=== PATIENT | male | born 1960 | race Caucasian/White ===

== ENCOUNTER 2019-02-21 15:48 | Emergency (ER) | payer OTHER ==
[2019-02-21] MEDS ORDERED: LABETALOL 20 MG/4ML SYRINGE IV ONE (16:27)
[2019-02-21] MEDS ORDERED: NA CHLORIDE 0.9% 100 ML IV ONE (16:28)
[2019-02-21 16:41] LABS: Absolute Lymphocytes (CBC) 1.3 K/uL (0.7-4.9); Absolute Monocytes 0.4 K/uL (0.1-1.3); Basophils % 0.8 % (0-1.3); Hematocrit 45.3 % (39.6-49.0); MPV 7.8 fL (7.6-11.3); Monocytes % 4.8 % (3.3-12.3); RBC Red Blood Cell Count 5.01 M/uL (4.33-5.43)
[2019-02-21 16:47] LABS: Potassium 3.8 mmol/L (3.5-5.1)
--- NOTE | 2019-02-21 17:00 | ER ---
Nurse's Notes [facility] Name: Oh Roberts Age: 58 yrs Sex: Male : 1960 Arrival Date: 02/21/2019 Time: 15:51 Bed 27 Private MD: Diagnosis: Hypertensive Urgency Presentation: 02/21 15:52 Transition of care: patient was not received from another setting of care. Care prior sv to arrival: None. 15:52 Method Of Arrival: Ambulatory sv 15:52 Presenting complaint: Patient states: "Lots of jittering and tingling everywhere, BP sv 188/66." Has been out of BP meds for a month. c/o headache. Onset of symptoms was February 20, 2019. 15:52 Acuity: LUIS M 2 sv 16:30 Risk Assessment: Do you want to hurt yourself or someone else? Patient reports no rv desire to harm self or others. Initial Sepsis Screen: Does the patient meet any 2 criteria? No. Patient's initial sepsis screen is negative. Does the patient have a suspected source of infection? No. Patient's initial sepsis screen is negative. Triage Assessment: 15:57 General: Appears in no apparent distress. uncomfortable, well developed, Behavior is sv calm, cooperative, appropriate for age. Pain: Denies pain. Neuro: Level of Consciousness is awake, alert, obeys commands, Oriented to person, place, time, situation, Gait is steady, Speech is normal. Respiratory: Respiratory effort is even, unlabored, Respiratory pattern is regular, symmetrical. Derm: Skin is normal. Historical: - Allergies: 15:55 No Known Allergies; sv - PMHx: 15:55 Hypertension; sv - PSHx: 15:55 heart aneurysym repair; sv - Immunization history:: Adult Immunizations up to date. - Social history:: Smoking status: Patient/guardian denies using tobacco. - Ebola Screening: : Patient negative for fever greater than or equal to 101.5 degrees Fahrenheit, and additional compatible Ebola Virus Disease symptoms Patient denies exposure to infectious person Patient denies travel to an Ebola-affected area in the 21 days before illness onset. Screenin:30 Abuse screen: Denies threats or abuse. Denies injuries from another. Nutritional rv screening: No deficits noted. Tuberculosis screening: No symptoms or risk factors identified. Fall Risk None identified. Assessment: 16:29 General: Appears in no apparent distress. comfortable, Behavior is calm, cooperative. rv Pain: Denies pain. Neuro: Level of Consciousness is awake, alert, obeys commands, Oriented to person, place, time, situation. Cardiovascular: Capillary refill < 3 seconds. Cardiovascular: Rhythm is regular. Respiratory: Airway is patent. GI: No signs and/or symptoms were reported involving the gastrointestinal system. : No signs and/or symptoms were reported regarding the genitourinary system. EENT: No signs and/or symptoms were reported regarding the EENT system. Derm: Skin is intact. Musculoskeletal: No signs and/or symptoms reported regarding the musculoskeletal system. 16:58 Reassessment: Patient appears in no apparent distress at this time. Patient and/or rv family updated on plan of care and expected duration. Pain level reassessed. Patient is alert, oriented x 3, equal unlabored respirations, skin warm/dry/pink. PATIENT STARTS FEELING BETTER. DAVE EXPLAINED TEST RESULTS AND PLAN FOR DISCHARGE. Vital Signs: 15:55 BP 200 / 105 RA Sitting (auto/reg); Pulse 85; Resp 18; Temp 98.5; Pulse Ox 98% ; Weight sv 83.01 kg; Height 5 ft. 10 in. (177.80 cm); 16:20 BP 178 / 99 LA Supine; Pulse 84; Resp 18 S; Pulse Ox 96% on R/A; rv 16:30 BP 186 / 100 LA Supine; Pulse 82; Resp 15 S; Pulse Ox 96% on R/A; rv 16:45 BP 173 / 95 LA Supine; Pulse 81; Resp 18 S; Pulse Ox 96% on R/A; rv 15:55 Body Mass Index 26.26 (83.01 kg, 177.80 cm) sv ED Course: 15:51 Patient arrived in ED. mr 15:52 Arm band placed on. sv 15:54 Triage completed. sv 15:58 Dave Phillips PA is PHCP. jr8 15:58 Sg Palm MD is Attending Physician. jr8 16:14 Panda Jones RN is Primary Nurse. rv 16:15 Inserted saline lock: 20 gauge in right antecubital area, using aseptic technique. rv Blood collected. 16:28 Patient has correct armband on for positive identification. Bed in low position. Call rv light in reach. Side rails up X 1. Pulse ox on. NIBP on. 16:28 Basic Metabolic Panel Sent. rv 16:28 CBC with Diff Sent. rv 16:57 No provider procedures requiring assistance completed. IV discontinued, intact, rv bleeding controlled, No redness/swelling at site. Pressure dressing applied. Administered Medications: 16:20 Drug: Labetalol 20 mg Route: IVP; Infused Over: 2 mins; Site: right antecubital; rv 16:57 Follow up: Response: Blood pressure is lowered rv Outcome: 16:57 Discharged to home ambulatory. rv 16:57 Condition: good 16:57 Discharge instructions given to patient, family, Instructed on discharge instructions, follow up and referral plans. medication usage, Demonstrated understanding of instructions, follow-up care, medications, Prescriptions given X 1. 17:00 Discharge ordered by . andra 17:09 Patient left the ED. rv Signatures: Arabella Bowden, RN RN Mannie Kathy fuller Dave Phillips PA PA jrPanda Pack RN RN rv Corrections: (The following items were deleted from the chart) 15:55 15:52 Onset of symptoms was February 21, 2019 sv sv 15:57 15:52 Presenting complaint: Patient states: "Lots of jittering and tingling everywhere, sv BP 188/66." Has been out of BP meds for a month. sv 15:58 15:52 Acuity: LUIS M 3 sv sv 15:58 15:55 Pulse 85bpm; Resp 18bpm; Pulse Ox 98%; Temp 98.5F; sv sv
--- NOTE | 2019-02-21 17:01 | EDPHYS ---
Physician Documentation [facility] Name: Oh Roberts Age: 58 yrs Sex: Male : 1960 Arrival Date: 02/21/2019 Time: 15:51 Bed 27 Private MD: ED Physician Sg Palm HPI: 02/21 16:13 This 58 yrs old Male presents to ER via Ambulatory with complaints of High jr8 Blood Pressure. 16:13 The patient has elevated blood pressure and discovered this at home. Onset: The jr8 symptoms/episode began/occurred gradually, 2 day(s) ago, and became worse. Modifying factors: The symptoms are aggravated by activity, The symptoms are alleviated by nothing. Associated signs and symptoms: Pertinent positives: headache. Severity of symptoms: At its worst the blood pressure was moderate, in the emergency department the blood pressure is unchanged. The patient has experienced a previous episode. The patient has not recently seen a physician. History of HTN but has been off of medication for years. Stated that over the past couple of days noticed that he has been more fatigued and tired. Has been having headaches and feels shaky. Denies CP, shortness of breath, visual deficits, unilateral weakness. Did complain of on/off paresthesias as well . Historical: - Allergies: 15:55 No Known Allergies; sv - PMHx: 15:55 Hypertension; sv - PSHx: 15:55 heart aneurysym repair; sv - Immunization history:: Adult Immunizations up to date. - Social history:: Smoking status: Patient/guardian denies using tobacco. - Ebola Screening: : Patient negative for fever greater than or equal to 101.5 degrees Fahrenheit, and additional compatible Ebola Virus Disease symptoms Patient denies exposure to infectious person Patient denies travel to an Ebola-affected area in the 21 days before illness onset. ROS: 16:13 Eyes: Negative for injury, pain, redness, and discharge, ENT: Negative for injury, jr8 pain, and discharge, Neck: Negative for injury, pain, and swelling, Cardiovascular: Negative for chest pain, palpitations, and edema, Respiratory: Negative for shortness of breath, cough, wheezing, and pleuritic chest pain, Abdomen/GI: Negative for abdominal pain, nausea, vomiting, diarrhea, and constipation, Back: Negative for injury and pain, MS/Extremity: Negative for injury and deformity, Skin: Negative for injury, rash, and discoloration. 16:13 Constitutional: Positive for fatigue. 16:13 Neuro: Positive for headache, tingling. Exam: 16:13 Eyes: Pupils equal round and reactive to light, extra-ocular motions intact. Lids and jr8 lashes normal. Conjunctiva and sclera are non-icteric and not injected. Cornea within normal limits. Periorbital areas with no swelling, redness, or edema. ENT: Nares patent. No nasal discharge, no septal abnormalities noted. Tympanic membranes are normal and external auditory canals are clear. Oropharynx with no redness, swelling, or masses, exudates, or evidence of obstruction, uvula midline. Mucous membranes moist. Neck: Trachea midline, no thyromegaly or masses palpated, and no cervical lymphadenopathy. Supple, full range of motion without nuchal rigidity, or vertebral point tenderness. No Meningismus. Cardiovascular: Regular rate and rhythm with a normal S1 and S2. No gallops, murmurs, or rubs. Normal PMI, no JVD. No pulse deficits. Respiratory: Lungs have equal breath sounds bilaterally, clear to auscultation and percussion. No rales, rhonchi or wheezes noted. No increased work of breathing, no retractions or nasal flaring. Abdomen/GI: Soft, non-tender, with normal bowel sounds. No distension or tympany. No guarding or rebound. No evidence of tenderness throughout. Back: No spinal tenderness. No costovertebral tenderness. Full range of motion. Skin: Warm, dry with normal turgor. Normal color with no rashes, no lesions, and no evidence of cellulitis. MS/ Extremity: Pulses equal, no cyanosis. Neurovascular intact. Full, normal range of motion. Neuro: Awake and alert, GCS 15, oriented to person, place, time, and situation. Cranial nerves II-XII grossly intact. Motor strength 5/5 in all extremities. Sensory grossly intact. Cerebellar exam normal. Normal gait. 16:13 ECG was reviewed by the Attending Physician. jr8 Vital Signs: 15:55 BP 200 / 105 RA Sitting (auto/reg); Pulse 85; Resp 18; Temp 98.5; Pulse Ox 98% ; Weight sv 83.01 kg; Height 5 ft. 10 in. (177.80 cm); 16:20 BP 178 / 99 LA Supine; Pulse 84; Resp 18 S; Pulse Ox 96% on R/A; rv 16:30 BP 186 / 100 LA Supine; Pulse 82; Resp 15 S; Pulse Ox 96% on R/A; rv 16:45 BP 173 / 95 LA Supine; Pulse 81; Resp 18 S; Pulse Ox 96% on R/A; rv 15:55 Body Mass Index 26.26 (83.01 kg, 177.80 cm) sv MDM: 15:58 Patient medically screened. jr8 16:58 Data reviewed: vital signs, nurses notes, lab test result(s), EKG, and as a result, I jr8 will discharge patient. Data interpreted: Pulse oximetry: on room air is 96 %. Interpretation: normal. Counseling: I had a detailed discussion with the patient and/or guardian regarding: the historical points, exam findings, and any diagnostic results supporting the discharge/admit diagnosis, lab results, the need for outpatient follow up, a family practitioner, to return to the emergency department if symptoms worsen or persist or if there are any questions or concerns that arise at home. Counseling: I had a detailed discussion with the patient and/or guardian regarding: the presence of at least one elevated blood pressure reading (>120/80) during this emergency department visit. Response to treatment: the patient's symptoms have markedly improved after treatment. Special discussion: I have referred the patient to see his PCP for further evaluation of high blood pressure. 02/21 16:12 Order name: CBC with Diff [facility] 02/21 16:12 Order name: Basic Metabolic Panel [facility] 02/21 16:12 Order name: EKG; Complete Time: 16:13 8 02/21 16:13 Order name: CBC with Automated Diff; Complete Time: 16:52 EDMS 02/21 16:13 Order name: Basic Metabolic Panel; Complete Time: 16:52 EDMS 02/21 16:12 Order name: EKG - Nurse/Tech; Complete Time: 16:39 jr EC:13 Rate is 82 beats/min. Rhythm is regular, Sinus Rhythm with PACs. QRS [place] is Normal. [place] jr8 interval is normal at 180 msec. QRS interval is normal at 88 msec. QT interval is normal at 448 msec. No Q waves. T waves are Normal. No ST changes noted. Clinical impression: Normal ECG and No evidence of ischemia. Interpreted by me. Reviewed by me. Administered Medications: 16:20 Drug: Labetalol 20 mg Route: IVP; Infused Over: 2 mins; Site: right antecubital; rv 16:57 Follow up: Response: Blood pressure is lowered rv Disposition: 02/22 07:57 Co-signature as Attending Physician, Sg Palm MD I agree with the assessment and [place] plan of care. Disposition: 02/21/19 17:00 Discharged to Home. Impression: Hypertensive Urgency. - Condition is Stable. - Discharge Instructions: Hypertension. - Prescriptions for Lisinopril- Hydrochlorothiazide 20-12.5 mg Oral Tablet - take 1 tablet by ORAL route once daily; 20 tablet. - Medication Reconciliation Form, Thank You Letter, Antibiotic Education, Prescription Opioid Use, Work release form form. - Follow up: Private Physician; When: 5 - 6 days; Reason: Recheck today's complaints, Continuance of care, Re-evaluation by your physician. - Problem is new. - Symptoms have improved. Signatures: Dispatcher [employer] Arabella Wolf, RN RN Sg Barclay MD MD cha Roszak, Josh, PA PA jr8 Panda Jones RN RN rv Corrections: (The following items were deleted from the chart) 02/21 17:09 17:00 02/21/2019 17:00 Discharged to Home. Impression: Hypertensive Urgency. Condition rv is Stable. Forms are Medication Reconciliation Form, Thank You Letter, Antibiotic Education, Prescription Opioid Use. Follow up: Private Physician; When: 5 - 6 days; Reason: Recheck today's complaints, Continuance of care, Re-evaluation by your physician. Problem is new. Symptoms have improved. jr8
--- NOTE | 2019-02-22 07:45 | EKG ---
Test Date: 2019-02-21 Test Time: 16:37:27 Resistance [place]: MARIPOSAT MEASUREMENT RESULTS: Intervals: Rate: 82 OK: 180 QRSD: 88 QT: 384 QTc: 448 [place]: P: OK: 180 QRS: 9 T: 70 INTERPRETIVE STATEMENTS: Sinus rhythm with premature atrial complexes Otherwise normal ECG No previous ECG available for comparison Electronically Signed On 02-22-19 07:43:53 CDT by Mayo Chamorro
== END 2019-02-21 17:09 | disposition home or self-care (01) ==
LOC: ER 15:48
DX: I16.0 Hypertensive urgency (principal); R51 Headache
CPT/HCPCS: 36415; 80048; 85025; 93005; 96374; 99284

== ENCOUNTER 2019-10-04 22:49 | Emergency (ER) | payer OTHER ==
--- NOTE | 2019-10-05 00:28 | ER ---
Nurse's Notes [facility] Name: Oh Roberts Age: 59 yrs Sex: Male : 1960 Arrival Date: 10/04/2019 Time: 22:51 Bed 5 Private MD: Diagnosis: Acute pharyngitis;Acute sinusitis Presentation: 10/04 23:47 Presenting complaint: Patient states: Reports he has been having sore throat for the ea past two weeks, significant other reports he has been having fever. Reports taking tylenol in the AM and NyQuil. Transition of care: patient was not received from another setting of care. Onset of symptoms was October 04, 2019. Risk Assessment: Do you want to hurt yourself or someone else? Patient reports no desire to harm self or others. Initial Sepsis Screen: Does the patient meet any 2 criteria? No. Patient's initial sepsis screen is negative. Does the patient have a suspected source of infection? No. Patient's initial sepsis screen is negative. Care prior to arrival: None. 23:47 Method Of Arrival: Ambulatory ea 23:47 Acuity: LUIS M 4 ea Historical: - Allergies: 23:51 No Known Allergies; ea - PMHx: 23:51 Hypertension; ea - PSHx: 23:51 None; ea - Immunization history:: Adult Immunizations up to date. - Social history:: Smoking status: Patient/guardian denies using tobacco. - Ebola Screening: : No symptoms or risks identified at this time. Screenin:49 Abuse screen: Denies threats or abuse. Nutritional screening: No deficits noted. ea Tuberculosis screening: No symptoms or risk factors identified. Fall Risk None identified. Assessment: 23:57 General: Appears uncomfortable, Behavior is calm, cooperative, appropriate for age. ea Pain: Complains of pain in sore throat. Neuro: Level of Consciousness is awake, alert, obeys commands, Oriented to person, place, time, situation. Cardiovascular: Patient's skin is warm and dry. Respiratory: Airway is patent Respiratory effort is even, unlabored, Respiratory pattern is regular, symmetrical, Breath sounds are clear bilaterally. EENT: Throat is reddened has enlarged tonsils bilaterally. 10/05 00:34 Reassessment: Patient and/or family updated on plan of care and expected duration. Pain ea level reassessed. Patient is alert, oriented x 3, equal unlabored respirations, skin warm/dry/pink. Discharge instruction given to patient, verbalized the understanding of instruction. Pt left ED ambulatory accompanied by family. Pt tolerating well. Vital Signs: 1202 23:57 BP 161 / 98; Pulse 78; Resp 18; Temp 98; Pulse Ox 97% on R/A; Weight 83.01 kg; Height 5 ea ft. 10 in. (177.80 cm); 23:57 Body Mass Index 26.26 (83.01 kg, 177.80 cm) ea ED Course: 22:51 Patient arrived in ED. cl3 22:58 Jeffry Garcia NP is PHCP. pm1 22:58 Solo Smart MD is Attending Physician. pm1 23:38 Yue Knight, CHARMAINE is Primary Nurse. ea 23:49 Triage completed. ea 23:50 Patient has correct armband on for positive identification. Bed in low position. Call ea light in reach. Side rails up X2. 23:58 Arm band placed on right wrist. Patient placed in an exam room, on a stretcher, on ea pulse oximetry. 12 00:35 No provider procedures requiring assistance completed. Patient did not have IV access ea during this emergency room visit. Administered Medications: No medications were administered Outcome: 00:26 Discharge ordered by . pm1 00:35 Discharged to home ambulatory, with family. ea 00:35 Condition: stable 00:35 Discharge instructions given to patient, Instructed on discharge instructions, follow up and referral plans. medication usage, Demonstrated understanding of instructions, follow-up care, medications. 00:37 Patient left the ED. ea Signatures: Jeffry Garcia NP ORBITREAD OPERATOR pm1 Yue Knight, RN RN Hannah Gandara cl3
--- NOTE | 2019-10-05 00:28 | EDPHYS ---
Physician Documentation [facility] Name: Oh Roberts Age: 59 yrs Sex: Male : 1960 Arrival Date: 10/04/2019 Time: 22:51 Bed 5 Private MD: ED Physician Solo Smart HPI: 10/04 23:45 This 59 yrs old Male presents to ER via Unassigned with complaints of Sore pm1 Throat. 23:45 The patient presents with sore throat. The patient describes throat pain as raw, pm1 scratchy. Onset: The symptoms/episode began/occurred 2 week(s) ago. Severity of symptoms: in the emergency department the symptoms are actually worse. Modifying factors: Patient's oral intake status: good. Associated signs and symptoms: Pertinent positives: cough, fever, flu-like symptoms, sinus congestion. The patient has not experienced similar symptoms in the past. The patient has not recently seen a physician. Historical: - Allergies: 23:51 No Known Allergies; ea - PMHx: 23:51 Hypertension; ea - PSHx: 23:51 None; ea - Immunization history:: Adult Immunizations up to date. - Social history:: Smoking status: Patient/guardian denies using tobacco. - Ebola Screening: : No symptoms or risks identified at this time. ROS: 23:58 Eyes: Negative for injury, pain, redness, and discharge. pm1 23:58 Neck: Negative for injury, pain, and swelling, Cardiovascular: Negative for chest pain, palpitations, and edema. 23:58 Abdomen/GI: Negative for abdominal pain, nausea, vomiting, diarrhea, and constipation, Back: Negative for injury and pain, MS/Extremity: Negative for injury and deformity, Skin: Negative for injury, rash, and discoloration. 23:58 Neuro: Negative for headache, weakness, numbness, tingling, and seizure. 23:58 Constitutional: Positive for body aches, fever, Negative for poor PO intake. 23:58 ENT: Positive for nose bleed, sinus congestion, sinus pain, sore throat. 23:58 Respiratory: Positive for cough, Negative for shortness of breath, sputum production, wheezing. Exam: 23:58 Constitutional: This is a well developed, well nourished patient who is awake, alert, pm1 and in no acute distress. Head/Face: Normocephalic, atraumatic. Eyes: Pupils equal round and reactive to light, extra-ocular motions intact. Lids and lashes normal. Conjunctiva and sclera are non-icteric and not injected. Cornea within normal limits. Periorbital areas with no swelling, redness, or edema. 23:58 Neck: Trachea midline, no thyromegaly or masses palpated, and no cervical lymphadenopathy. Supple, full range of motion without nuchal rigidity, or vertebral point tenderness. No Meningismus. Chest/axilla: Normal chest wall appearance and motion. Nontender with no deformity. No lesions are appreciated. Cardiovascular: Regular rate and rhythm with a normal S1 and S2. No gallops, murmurs, or rubs. Normal PMI, no JVD. No pulse deficits. Respiratory: Lungs have equal breath sounds bilaterally, clear to auscultation and percussion. No rales, rhonchi or wheezes noted. No increased work of breathing, no retractions or nasal flaring. Abdomen/GI: Soft, non-tender, with normal bowel sounds. No distension or tympany. No guarding or rebound. No evidence of tenderness throughout. Back: No spinal tenderness. No costovertebral tenderness. Full range of motion. Skin: Warm, dry with normal turgor. Normal color with no rashes, no lesions, and no evidence of cellulitis. MS/ Extremity: Pulses equal, no cyanosis. Neurovascular intact. Full, normal range of motion. 23:58 ENT: External ear(s): are unremarkable, Ear canal(s): are normal, TM's: are normal, Nose: no acute changes, Mouth: no acute changes, Posterior pharynx: Airway: normal, no evidence of obstruction, Tonsils: bilaterally enlarged, with erythema, with exudate, no ulcerations, peritonsillar mass, is not appreciated, pooling of secretions, is not appreciated. 23:58 Neuro: Orientation: is normal, Motor: is normal, moves all fours. Vital Signs: 23:57 BP 161 / 98; Pulse 78; Resp 18; Temp 98; Pulse Ox 97% on R/A; Weight 83.01 kg; Height 5 ea ft. 10 in. (177.80 cm); 23:57 Body Mass Index 26.26 (83.01 kg, 177.80 cm) ea MDM: 23:02 Patient medically screened. pm1 23:59 Data reviewed: vital signs. Data interpreted: Pulse oximetry: on room air is 97 %. pm1 Interpretation: normal. 10/05 00:25 Counseling: I had a detailed discussion with the patient and/or guardian regarding: the pm1 historical points, exam findings, and any diagnostic results supporting the discharge/admit diagnosis, lab results, the need for outpatient follow up, to return to the emergency department if symptoms worsen or persist or if there are any questions or concerns that arise at home. 10/04 23:03 Order name: Strep; Complete Time: 00:25 pm1 10/04 23:03 Order name: Flu; Complete Time: 00:25 pm1 10/05 00:22 Order name: Throat Culture EDMS Administered Medications: No medications were administered Disposition: 07:30 Co-signature as Attending Physician, Solo Smart MD I agree with the assessment and tw4 plan of care. Disposition: 10/05/19 00:26 Discharged to Home. Impression: Acute pharyngitis, Acute sinusitis. - Condition is Stable. - Discharge Instructions: Pharyngitis, Sinusitis, Adult. - Prescriptions for Augmentin 875- 125 mg Oral Tablet - take 1 tablet by ORAL route every 12 hours for 10 days; 20 tablet. - Medication Reconciliation Form, Thank You Letter, Antibiotic Education, Prescription Opioid Use, Work release form form. - Follow up: Emergency Department; When: As needed; Reason: Worsening of condition. Follow up: Private Physician; When: 2 - 3 days; Reason: Recheck today's complaints, Continuance of care, Re-evaluation by your physician. - Problem is new. - Symptoms have improved. Signatures: Dispatcher [employer] EDMS Jeffry Garcia, VAN IRON CASTER pm1 Yue Knight RN RN ea Wadley, Terrence, MD MD tw4 Corrections: (The following items were deleted from the chart) 00:29 00:26 10/05/2019 00:26 Discharged to Home. Impression: Acute pharyngitis. Condition is pm1 Stable. Forms are Medication Reconciliation Form, Thank You Letter, Antibiotic Education, Prescription Opioid Use. Follow up: Emergency Department; When: As needed; Reason: Worsening of condition. Follow up: Private Physician; When: 2 - 3 days; Reason: Recheck today's complaints, Continuance of care, Re-evaluation by your physician. Problem is new. Symptoms have improved. pm1 00:37 00:29 10/05/2019 00:26 Discharged to Home. Impression: Acute pharyngitis; Acute ea sinusitis. Condition is Stable. Discharge Instructions: Pharyngitis, Sinusitis, Adult. Prescriptions for Augmentin 875-125 mg Oral Tablet - take 1 tablet by ORAL route every 12 hours for 10 days; 20 tablet. and Forms are Medication Reconciliation Form, Thank You Letter, Antibiotic Education, Prescription Opioid Use. Follow up: Emergency Department; When: As needed; Reason: Worsening of condition. Follow up: Private Physician; When: 2 - 3 days; Reason: Recheck today's complaints, Continuance of care, Re-evaluation by your physician. Problem is new. Symptoms have improved. pm1
[2019-10-05 03:59] VITALS: BP 161/98; TEMP 98; O2SAT 97
== END 2019-10-05 00:37 | disposition home or self-care (01) ==
LOC: ER 22:49
DX: J02.9 Acute pharyngitis, unspecified (principal); J01.90 Acute sinusitis, unspecified
CPT/HCPCS: 87070; 87081; 87804; 99283

== ENCOUNTER 2019-10-06 13:14 | Inpatient (IN) | payer OTHER ==
[2019-10-06] MEDS ORDERED: ALTEPLASE 100 ML IV ONE (13:26)
--- NOTE | 2019-10-06 13:38 | RAD REPORT ---
EXAM DESCRIPTION: CT - Ct Stroke Brain Wo Cont - 10/06/2019 1:29 pm CLINICAL HISTORY: CVA COMPARISON: None TECHNIQUE: Computed axial tomography of the head was obtained. All CT scans are performed using dose optimization technique as appropriate and may include automated exposure control or mA/KV adjustment according to patient size. FINDINGS: An intracranial bleed is not seen . The ventricles are normal in caliber. No extra-axial fluid collection is noted. Mild low-density within periventricular, deep and subcortical white matter likely ischemic changes s econdary to small vessel disease Fluid within the sinuses/ mastoids is not seen. IMPRESSION: No acute intracranial abnormality is seen. If patient's symptoms persist MRI of the bra in would be recommended. Dr Mcgovern of the emergency room was notified at approximately 1:25 p.m. 10/06/2019
[2019-10-06] MEDS ORDERED: NA CHLORIDE 0.9% 100 ML IV ONE (13:40)
[2019-10-06 13:41] LABS: Absolute Lymphocytes (CBC) 1.6 K/uL (0.7-4.9); Basophils % 0.9 % (0-1.3); Lymphocytes % 19.5 % (15.3-44.8); MPV 7.4 fL (7.6-11.3); RBC Red Blood Cell Count 4.56 M/uL (4.33-5.43)
[2019-10-06 13:44] LABS: Protime INR 1.04
--- NOTE | 2019-10-06 13:47 | ER ---
Nurse's Notes [facility] Name: Oh Roberts Age: 59 yrs Sex: Male : 1960 Arrival Date: 10/06/2019 Time: 13:19 Bed 5 Private MD: Diagnosis: Cerebral infarction Presentation: 10/06 13:15 Presenting complaint: EMS states: pt c/o numbness/tingling in right arm that started at iw 1130 today, pt also has weakness in RLE, hx of CVA in 2003, hx of aortic aneurysm, was diagnosed with strep 2 days ago, currently on Augmentin, not on blood thinners, takes ASA daily. 13:21 Transition of care: patient was not received from another setting of care. iw 13:21 Method Of Arrival: EMS: [facility] iw 13:22 The patients blood glucose was checked prior to arriving to the hospital and was found iw to be hyperglycemic. Onset of symptoms was October 06, 2019 at 11:30. Risk Assessment: Do you want to hurt yourself or someone else? Patient reports no desire to harm self or others. Initial Sepsis Screen: Does the patient meet any 2 criteria? No. Patient's initial sepsis screen is negative. Does the patient have a suspected source of infection? No. Patient's initial sepsis screen is negative. Care prior to arrival: Medication(s) given: Normal saline infusion, 500 mL, IV initiated. 20 GA, in the right antecubital area, Glucose check: 395. 13:22 Acuity: LUIS M 2 iw Triage Assessment: 13:17 The onset of the patients symptoms was October 06, 2019 at 11:30. General: Appears in iw no apparent distress. Behavior is calm, cooperative. Pain: Denies pain. Neuro: Reports weakness in right leg since 1130 today. Stroke Activation: Symptom onset < 3 hours Physician: Stroke Attending; Name: ; Notified At: ; Arrived At: Physician: Chief Stroke Resident; Name: ; Notified At: ; Arrived At: Physician: Stroke Resident; Name: ; Notified At: ; Arrived At: Physician: ED Attending; Name: Dr. Mcgovern/Dave PATEL; Notified At: 13:15; Arrived At: 13:15 Physician: ED Resident; Name: ; Notified At: ; Arrived At: Historical: - Allergies: 13:24 No Known Allergies; iw - Home Meds: 13:23 Aspirin Oral once daily [Active]; iw 16:16 metformin 500 mg Oral tab 1 tab 2 times per day [Active]; iw lisinopril-hydrochlorothiazide 20-12.5 mg oral tab 1 tab once daily [Active]; - PMHx: 13:23 Hypertension; iw - PSHx: 16:16 aortic aneurysm repair; iw - Immunization history:: Adult Immunizations not up to date. - Social history:: Smoking status: Patient/guardian denies using tobacco, Patient uses alcohol, on a daily basis. claims drinking about a 6 pack/day. - Ebola Screening: : Patient negative for fever greater than or equal to 101.5 degrees Fahrenheit, and additional compatible Ebola Virus Disease symptoms Patient denies exposure to infectious person Patient denies travel to an Ebola-affected area in the 21 days before illness onset No symptoms or risks identified at this time. Screenin:00 Abuse screen: Denies threats or abuse. Denies injuries from another. Nutritional iw screening: No deficits noted. Tuberculosis screening: No symptoms or risk factors identified. Fall Risk IV access (20 points). Assessment: 13:17 VAN Scoring: Arm Drift: Patients demonstrates NO arm weakness. Patient is VAN Negative. iw 13:17 General: Appears in no apparent distress. Behavior is calm, cooperative. Pain: Denies iw pain. Neuro: Level of Consciousness is awake, alert, obeys commands, Oriented to person, place, time, situation, Personal Injury Litigation Paralegal are equal bilaterally Weakness in left leg(s) Speech is normal, Facial symmetry appears normal, Pupils are PERRLA, Numbness in right hand and right foot paresthesias in right hand and right foot Reports weakness in right leg. Cardiovascular: Capillary refill < 3 seconds in bilateral fingers Patient's skin is warm and dry. Respiratory: Respiratory effort is even, unlabored, Respiratory pattern is regular, symmetrical. GI: Abdomen is flat, non-distended. Derm: Skin is intact. Musculoskeletal: 13:20 Reassessment: pt transported to Ct via stretcher with CHARMAINE Morgan. iw 13:30 Reassessment: Jose Acosta at bedside to discuss TPA administration. iw 13:39 T-PA (Activase) Screening: Indications: Definite evidence of stroke, ischemic, embolic, iw or hypertensive: Yes. Treatment will start within 4.5 hours onset of symptoms: Yes. No evidence of intracranial hemorrhage or CT of head and no evidence of peripheral hemorrhage or recent CVA: Yes. Consent for thrombolytic therapy: Yes. 13:52 Patient has been NPO before screening. The patient is alert, and able to follow iw commands. The patient does not exhibit slurred or garbled speech. The patient is not exhibiting difficulty speaking. The patient does not exhibit difficulty understanding words. The patient is able to swallow own secretions with no drooling or need for suction. Patient tolerated one teaspoon of water. No drooling, immediate coughing, gurgling, or clearing of the throat was noted. The patient tolerated 90mL of water. No drooling, immediate coughing, gurgling, or clearing of the throat was noted. The patient passed the bedside swallow screening. Oral medications may be given as ordered. Contact Physician for further diet orders. Provider notified of bedside swallow screening results: Dave PATEL. 14:25 Reassessment: pt left nostril has started bleeding, nose clamp placed, gauze given, no iw other signs of bleeding noted. 15:00 Reassessment: Patient appears in no apparent distress at this time. Patient and/or iw family updated on plan of care and expected duration. Pain level reassessed. Patient is alert, oriented x 3, equal unlabored respirations, skin warm/dry/pink. bleeding to right nostril minimal, pt removed nose camp due to discomfort. Vital Signs: 13:24 BP 158 / 92; Pulse 103; Resp 15 S; Temp 97.2(TE); Pulse Ox 98% on R/A; jl7 13:46 BP 158 / 92; Pulse 100; Resp 17; Temp 97.8(TE); Pulse Ox 96% on R/A; Weight 81 kg; iw 13:52 BP 152 / 84; Pulse 101; Resp 16; Pulse Ox 98% on R/A; Pain 0/10; iw 14:10 BP 141 / 77; Pulse 99; Resp 16 S; Pulse Ox 98% on R/A; Pain 0/10; iw 14:43 BP 158 / 88; Pulse 102; Resp 16; Pulse Ox 98% on R/A; Pain 0/10; iw 15:00 BP 156 / 87; Pulse 92; Resp 18; Temp 98.9(TE); Pulse Ox 100% on R/A; mh5 16:02 BP 136 / 79; Pulse 92; Resp 15; Temp 99.3(TE); Pulse Ox 98% on R/A; mh5 NIH Stroke Scale Scores: 13:17 NIHSS Score: 2 iw 13:17 NIHSS Score: 2 jr8 15:06 NIHSS Score: 2 iw 16:00 NIHSS Score: 2 iw ED Course: 13:15 Patient placed in an exam room. iw 13:19 Patient arrived in ED. iw 13:19 Dave Phillips PA is PHCP. jr8 13:19 Barrie Mcgovern MD is Attending Physician. jr8 13:20 EKG done, by pattern technician. reviewed by Dave PATEL. at1 13:21 Patient has correct armband on for positive identification. Placed in gown. Bed in low mh5 position. Call light in reach. Side rails up X2. Warm blanket given. molding engineer on. Pulse ox on. NIBP on. 13:23 Triage completed. iw 13:31 CT Stroke Brain w/o Contrast In Process Unspecified. EDMS 13:42 Stroke CXR 1 View In Process Unspecified. EDMS 13:44 Inserted saline lock: 22 gauge in left antecubital area, using aseptic technique. mh5 13:45 Cuco Veronica MD is Hospitalizing Provider. jr8 13:50 Nurys Gonzalez, CHARMAINE is Primary Nurse. iw 13:59 Maintain EMS IV. Dressing intact. Good blood return noted. Site clean \T\ dry. Gauge \T\ iw site: 20 RAC. 16:08 No provider procedures requiring assistance completed. Patient admitted, IV remains in iw place. Administered Medications: 13:42 Drug: Alteplase {Co-Signature: ss (Tonia Nguyen RN).} Route: IV Thrombolytics; Rate: iw calculated rate; 14:45 Follow up: Response: No adverse reaction; No change in condition iw Point of Care Testing: Blood Glucose: 13:17 Blood Glucose: 305 mg/dL; iw Ranges: Outcome: 13:45 Decision to Hospitalize by Provider. jr8 16:55 Admitted to ICU accompanied by nurse, accompanied by tech, family with patient, via iw stretcher, room bed 7 , with chart, Report called to CHARMAINE Ravi 16:55 Condition: good 16:55 Discharge instructions given to patient, family, Instructed on the need for admit. 16:56 Patient left the ED. NIH Stroke Scale - NIH Stroke Score Date: 10/06/2019 Time: 13:17 Total Score = 2 1a. Level of Consciousness (LOC) - 0(Alert) 1b. Level of Consciousness (LOC) (Year \T\ Age) - 0(Both) 1c. LOC Commands (Open \T\ Closes Eyes/Central Office Supervisor) - 0(Both) 2. Best Gaze (Lateral Gaze Paresis) - 0(Normal) 3. Visual Field Loss - 0(No visual loss) 4. Facial Palsy - 0(Normal) 5a. Left Arm: Motor (10-second hold) - 0(No drift) 5b. Right Arm: Motor (10-second hold) - 0(No drift) 6a. Left Leg: Motor (5-second hold - always test supine) - 0(No drift) 6b. Right Leg: Motor (5-second hold - always test supine) - 1(Drift) 7. Limb Ataxia (finger/nose \T\ heel/ortiz - test with eyes open) - 0(Absent) 8. Sensory Loss (pinprick arms/legs/face) - 1(Mild to moderate loss) 9. Best Language: Aphasia (description/naming/reading) - 0(No aphasia) 10. Dysarthria (speech clarity - read or repeat words) - 0(Normal) 11. Extinction and Inattention (visual/tactile/auditory/spatial/personal) - 0(No abnormality) Initials: NIH Stroke Scale - NIH Stroke Score Date: 10/06/2019 Time: 13:17 Total Score = 2 1a. Level of Consciousness (LOC) - 0(Alert) 1b. Level of Consciousness (LOC) (Year \T\ Age) - 0(Both) 1c. LOC Commands (Open \T\ Closes Eyes/Central Office Supervisor) - 0(Both) 2. Best Gaze (Lateral Gaze Paresis) - 0(Normal) 3. Visual Field Loss - 0(No visual loss) 4. Facial Palsy - 0(Normal) 5a. Left Arm: Motor (10-second hold) - 0(No drift) 5b. Right Arm: Motor (10-second hold) - 0(No drift) 6a. Left Leg: Motor (5-second hold - always test supine) - 0(No drift) 6b. Right Leg: Motor (5-second hold - always test supine) - 1(Drift) 7. Limb Ataxia (finger/nose \T\ heel/ortiz - test with eyes open) - 1(Present in one limb) 8. Sensory Loss (pinprick arms/legs/face) - 0(Normal) 9. Best Language: Aphasia (description/naming/reading) - 0(No aphasia) 10. Dysarthria (speech clarity - read or repeat words) - 0(Normal) 11. Extinction and Inattention (visual/tactile/auditory/spatial/personal) - 0(No abnormality) Initials: jr8 NIH Stroke Scale - NIH Stroke Score Date: 10/06/2019 Time: 15:06 Total Score = 2 1a. Level of Consciousness (LOC) - 0(Alert) 1b. Level of Consciousness (LOC) (Year \T\ Age) - 0(Both) 1c. LOC Commands (Open \T\ Closes Eyes/Central Office Supervisor) - 0(Both) 2. Best Gaze (Lateral Gaze Paresis) - 0(Normal) 3. Visual Field Loss - 0(No visual loss) 4. Facial Palsy - 0(Normal) 5a. Left Arm: Motor (10-second hold) - 0(No drift) 5b. Right Arm: Motor (10-second hold) - 0(No drift) 6a. Left Leg: Motor (5-second hold - always test supine) - 0(No drift) 6b. Right Leg: Motor (5-second hold - always test supine) - 1(Drift) 7. Limb Ataxia (finger/nose \T\ heel/ortiz - test with eyes open) - 0(Absent) 8. Sensory Loss (pinprick arms/legs/face) - 1(Mild to moderate loss) 9. Best Language: Aphasia (description/naming/reading) - 0(No aphasia) 10. Dysarthria (speech clarity - read or repeat words) - 0(Normal) 11. Extinction and Inattention (visual/tactile/auditory/spatial/personal) - 0(No abnormality) Initials: iw NIH Stroke Scale - NIH Stroke Score Date: 10/06/2019 Time: 16:00 Total Score = 2 1a. Level of Consciousness (LOC) - 0(Alert) 1b. Level of Consciousness (LOC) (Year \T\ Age) - 0(Both) 1c. LOC Commands (Open \T\ Closes Eyes/Central Office Supervisor) - 0(Both) 2. Best Gaze (Lateral Gaze Paresis) - 0(Normal) 3. Visual Field Loss - 0(No visual loss) 4. Facial Palsy - 0(Normal) 5a. Left Arm: Motor (10-second hold) - 0(No drift) 5b. Right Arm: Motor (10-second hold) - 0(No drift) 6a. Left Leg: Motor (5-second hold - always test supine) - 0(No drift) 6b. Right Leg: Motor (5-second hold - always test supine) - 1(Drift) 7. Limb Ataxia (finger/nose \T\ heel/ortiz - test with eyes open) - 0(Absent) 8. Sensory Loss (pinprick arms/legs/face) - 1(Mild to moderate loss) 9. Best Language: Aphasia (description/naming/reading) - 0(No aphasia) 10. Dysarthria (speech clarity - read or repeat words) - 0(Normal) 11. Extinction and Inattention (visual/tactile/auditory/spatial/personal) - 0(No abnormality) Initials: Signatures: Dispatcher [employer] EDNurys Anaya RN RN Dave Phillips PA PA jr8 Mary Finn, r d engineer EKG Tat1 Ceci Thrasher 5 Eddie Vega RN RN jl7 Tonia Nguyen RN ss Corrections: (The following items were deleted from the chart) 14:04 13:46 BP 158 / 92; Pulse 100bpm; Resp 17bpm; Pulse Ox 96% RA; Temp 97.8F Temporal; 5 15:06 13:17 NIHSS Score: 1 [facility] 16:16 13:23 Home Meds: unknown BP med daily; [facility] 16:16 13:23 PSHx: None; [facility] 17:05 14:25 Reassessment: pt right nostril has started bleeding, nose clamp placed, iw gauze given, no other signs of bleeding noted iw
--- NOTE | 2019-10-06 13:47 | EDPHYS ---
Physician Documentation [facility] Name: Oh Roberts Age: 59 yrs Sex: Male : 1960 Arrival Date: 10/06/2019 Time: 13:19 Bed 5 Private MD: ED Physician Barrie Mcgovern HPI: 10/06 13:17 This 59 yrs old Male presents to ER via Unassigned with complaints of S/S of jr8 Possible Stroke. 13:17 The patient presents to the emergency department with weakness of the right lower jr8 extremity, that is moderate, paresthesias of the right lower extremity, that is mild, right upper extremity, that is mild. Onset: The symptoms/episode began/occurred acutely, today. Context: occurred at work, occurred while the patient was at rest. Associated signs and symptoms: The patient has no apparent associated signs or symptoms. Severity of symptoms: At their worst the symptoms were moderate in the emergency department the symptoms are unchanged. Patient's baseline: Neuro: alert and fully oriented, Motor: no deficits, Ambulation: walks without assistance, Speech: normal. Current symptoms: paralysis or paresis, of the right leg, that is mild. The patient has experienced a previous episode, 14 years ago. The patient has not recently seen a physician. Patient stated that while at work had sudden onset numbness and tingling to right arm and leg that progressed to right leg weakness. Symptom onset at approximately 11:30 AM . Historical: - Allergies: 13:24 No Known Allergies; iw - Home Meds: 13:23 Aspirin Oral once daily [Active]; iw 16:16 metformin 500 mg Oral tab 1 tab 2 times per day [Active]; iw lisinopril-hydrochlorothiazide 20-12.5 mg oral tab 1 tab once daily [Active]; - PMHx: 13:23 Hypertension; iw - PSHx: 16:16 aortic aneurysm repair; iw - Immunization history:: Adult Immunizations not up to date. - Social history:: Smoking status: Patient/guardian denies using tobacco, Patient uses alcohol, on a daily basis. claims drinking about a 6 pack/day. - Ebola Screening: : Patient negative for fever greater than or equal to 101.5 degrees Fahrenheit, and additional compatible Ebola Virus Disease symptoms Patient denies exposure to infectious person Patient denies travel to an Ebola-affected area in the 21 days before illness onset No symptoms or risks identified at this time. ROS: 13:17 Eyes: Negative for injury, pain, redness, and discharge, ENT: Negative for injury, jr8 pain, and discharge, Neck: Negative for injury, pain, and swelling, Cardiovascular: Negative for chest pain, palpitations, and edema, Respiratory: Negative for shortness of breath, cough, wheezing, and pleuritic chest pain, Abdomen/GI: Negative for abdominal pain, nausea, vomiting, diarrhea, and constipation, Back: Negative for injury and pain, MS/Extremity: Negative for injury and deformity, Skin: Negative for injury, rash, and discoloration. 13:17 Neuro: Positive for tingling, weakness. Exam: 13:17 Eyes: Pupils equal round and reactive to light, extra-ocular motions intact. Lids and jr8 lashes normal. Conjunctiva and sclera are non-icteric and not injected. Cornea within normal limits. Periorbital areas with no swelling, redness, or edema. ENT: Nares patent. No nasal discharge, no septal abnormalities noted. Tympanic membranes are normal and external auditory canals are clear. Oropharynx with no redness, swelling, or masses, exudates, or evidence of obstruction, uvula midline. Mucous membranes moist. Neck: Trachea midline, no thyromegaly or masses palpated, and no cervical lymphadenopathy. Supple, full range of motion without nuchal rigidity, or vertebral point tenderness. No Meningismus. Cardiovascular: Regular rate and rhythm with a normal S1 and S2. No gallops, murmurs, or rubs. Normal PMI, no JVD. No pulse deficits. Respiratory: Lungs have equal breath sounds bilaterally, clear to auscultation and percussion. No rales, rhonchi or wheezes noted. No increased work of breathing, no retractions or nasal flaring. Abdomen/GI: Soft, non-tender, with normal bowel sounds. No distension or tympany. No guarding or rebound. No evidence of tenderness throughout. Back: No spinal tenderness. No costovertebral tenderness. Full range of motion. Skin: Warm, dry with normal turgor. Normal color with no rashes, no lesions, and no evidence of cellulitis. MS/ Extremity: Pulses equal, no cyanosis. Neurovascular intact. Full, normal range of motion. 13:17 Neuro: Orientation: to person, place, time \T\ situation. Mentation: is normal, Memory: is normal, immediate memory is intact, recent memory is intact, remote memory is intact, Cranial nerves: CN I not tested, visual deshpande are intact. extraocular movements are intact, Facial palsy and sensory deficits are absent. Nystagmus is absent. Speech is clear and appropriate. Tongue strength is normal, Cerebellar function: normal finger to nose testing, the patient is unable to track right heel to left ortiz, Motor: moves all fours, Sensation: tingling, that is mild, of the right hand and right foot, Gait: not tested. seizure activity, is not displayed by the patient. Vital Signs: 13:24 BP 158 / 92; Pulse 103; Resp 15 S; Temp 97.2(TE); Pulse Ox 98% on R/A; jl7 13:46 BP 158 / 92; Pulse 100; Resp 17; Temp 97.8(TE); Pulse Ox 96% on R/A; Weight 81 kg; iw 13:52 BP 152 / 84; Pulse 101; Resp 16; Pulse Ox 98% on R/A; Pain 0/10; iw 14:10 BP 141 / 77; Pulse 99; Resp 16 S; Pulse Ox 98% on R/A; Pain 0/10; iw 14:43 BP 158 / 88; Pulse 102; Resp 16; Pulse Ox 98% on R/A; Pain 0/10; iw 15:00 BP 156 / 87; Pulse 92; Resp 18; Temp 98.9(TE); Pulse Ox 100% on R/A; 5 16:02 BP 136 / 79; Pulse 92; Resp 15; Temp 99.3(TE); Pulse Ox 98% on R/A; mh5 NIH Stroke Scale Scores: 13:17 NIHSS Score: 2 iw 13:17 NIHSS Score: 2 jr8 15:06 NIHSS Score: 2 iw 16:00 NIHSS Score: 2 iw MDM: 13:19 Patient medically screened. jr8 13:34 ED course: Patient with continued Right lower extremity deficit. Explained risks vs jr8 benefits of tPA. Minor stroke present but with notable deficit. Patient wants to do tPA and consented at 13:34. 13:40 ED course: Dr. Rodríguez consulted and accepted patient as consult for CVA. jr8 13:45 Data reviewed: vital signs, nurses notes, lab test result(s), EKG, radiologic studies, jr CT scan, plain films, and as a result, I will admit patient. Data interpreted: Pulse oximetry: on room air is 100 %. Interpretation: normal. Counseling: I had a detailed discussion with the patient and/or guardian regarding: the historical points, exam findings, and any diagnostic results supporting the discharge/admit diagnosis, lab results, radiology results, the need for further work-up and treatment in the hospital. 10/06 13:24 Order name: Magnesium; Complete Time: 14:21 8 10/06 13:24 Order name: Troponin (emerg Dept Use Only); Complete Time: 14:21 [facility] 10/06 13:24 Order name: Basic Metabolic Panel; Complete Time: 14:21 [facility] 10/06 13:24 Order name: CBC with Diff; Complete Time: 13:46 [facility] 10/06 13:24 Order name: Protime (+inr); Complete Time: 13:46 [facility] 10/06 13:24 Order name: Ptt, Activated; Complete Time: 13:46 [facility] 10/06 14:05 Order name: glucometer results - FOR PT WITH NO ID; Complete Time: 15:11 10/06 14:25 Order name: Vitamin B12 Level; Complete Time: 15:56 EDMD 10/06 14:25 Order name: Folic Acid, (Folate); Complete Time: 15:56 EDMD 10/06 14:25 Order name: RPR EDMD 10/06 14:25 Order name: Vitamin D, 25 (OH), TOTAL; Complete Time: 16:13 EDMD 10/06 14:25 Order name: CBC with Automated Diff EDMS 10/06 14:25 Order name: CBC with Automated Diff EDMS 10/06 14:25 Order name: Comprehensive Metabolic Panel EDMS 10/06 14:25 Order name: Comprehensive Metabolic Panel EDMS 10/06 14:25 Order name: Lipid Profile EDMS 10/06 14:25 Order name: Lipid Profile EDMS 10/06 14:25 Order name: Magnesium EDMS 10/06 14:25 Order name: Magnesium EDMS 10/06 14:25 Order name: Phosphorus EDMS 10/06 14:25 Order name: Phosphorus EDMS 10/06 14:28 Order name: Anti-Thrombin III Activity EDMD 10/06 14:28 Order name: Cardiolipin Antibodies G,M EDMD 10/06 14:28 Order name: C-ANCA Anti-Proteinase 3 EDMD 10/06 14:28 Order name: Factor V Leiden Mutation EDMD 10/06 14:28 Order name: Homocysteine EDMD 10/06 14:28 Order name: Miscellaneous Test Lab EDMD 10/06 14:28 Order name: P-ANCA Anti-Myeloperoxidase Ab EDMD 10/06 14:28 Order name: PROTHROMBIN GENE ANALYSIS (F2) EDMD 10/06 14:28 Order name: Protein C Antigen EDMD 10/06 13:24 Order name: CT Stroke Brain w/o Contrast; Complete Time: 13:46 8 10/06 13:24 Order name: Stroke CXR 1 View; Complete Time: 13:55 8 10/06 13:24 Order name: EKG; Complete Time: 13:25 8 10/06 13:24 Order name: Accucheck; Complete Time: 14:06 8 10/06 13:24 Order name: Cardiac monitoring; Complete Time: 14:06 8 10/06 13:24 Order name: EKG - Nurse/Tech; Complete Time: 14:06 8 10/06 13:24 Order name: IV Saline Lock; Complete Time: 13:45 8 10/06 13:24 Order name: Labs collected and sent; Complete Time: 13:56 8 10/06 13:24 Order name: NPO; Complete Time: 13:56 8 10/06 13:24 Order name: O2 Per Protocol; Complete Time: 13:56 8 10/06 13:24 Order name: O2 Sat Monitoring; Complete Time: 13:56 8 10/06 13:24 Order name: Stroke Swallow Screen; Complete Time: 13:56 8 10/06 14:25 Order name: Physical Therapy Consult EDMD 10/06 14:25 Order name: NPO EDMD 10/06 14:25 Order name: NPO EDMD 10/06 14:25 Order name: NPO EDMD 10/06 14:25 Order name: Echo with Doppler EDMD 10/06 14:27 Order name: Speech Therapy Consult EDMD 10/06 14:28 Order name: Protein S (Total EDMD 10/06 14:28 Order name: Protein Electo w/M Griffin Serum EDMS 10/06 14:30 Order name: Chest Pa And Lat (2 Views) EDMS 10/06 14:38 Order name: MRA Head Wo Cont EDMS 10/06 14:41 Order name: Brain Wo Cont EDMS Administered Medications: 13:42 Drug: Alteplase {Co-Signature: lalo (Tonia Nguyen RN).} Route: IV Thrombolytics; Rate: iw calculated rate; 14:45 Follow up: Response: No adverse reaction; No change in condition iw Point of Care Testing: Blood Glucose: 13:17 Blood Glucose: 305 mg/dL; iw Ranges: Critical Glucose Levels:Adult <50 mg/dl or >400 mg/dl <40 mg/dl or >180 mg/dl Disposition: 19:05 Co-signature as Attending Physician, Barrie Mcgovern MD Signing chart for administrative ps1 purposes. Available for consultation in ED. . Disposition: 10/06/19 13:45 Hospitalization ordered by Cuco Veronica for Inpatient Admission. Preliminary diagnosis is Cerebral infarction. - Bed requested for Intensive Care Unit. - Status is Inpatient Admission. iw - Condition is Stable. - Problem is new. - Symptoms are unchanged. UTI on Admission? No NIH Stroke Scale - NIH Stroke Score Date: 10/06/2019 Time: 13:17 Total Score = 2 1a. Level of Consciousness (LOC) - 0(Alert) 1b. Level of Consciousness (LOC) (Year \T\ Age) - 0(Both) 1c. LOC Commands (Open \T\ Closes Eyes/Child Development Instructor) - 0(Both) 2. Best Gaze (Lateral Gaze Paresis) - 0(Normal) 3. Visual Field Loss - 0(No visual loss) 4. Facial Palsy - 0(Normal) 5a. Left Arm: Motor (10-second hold) - 0(No drift) 5b. Right Arm: Motor (10-second hold) - 0(No drift) 6a. Left Leg: Motor (5-second hold - always test supine) - 0(No drift) 6b. Right Leg: Motor (5-second hold - always test supine) - 1(Drift) 7. Limb Ataxia (finger/nose \T\ heel/ortiz - test with eyes open) - 0(Absent) 8. Sensory Loss (pinprick arms/legs/face) - 1(Mild to moderate loss) 9. Best Language: Aphasia (description/naming/reading) - 0(No aphasia) 10. Dysarthria (speech clarity - read or repeat words) - 0(Normal) 11. Extinction and Inattention (visual/tactile/auditory/spatial/personal) - 0(No abnormality) Initials: iw NIH Stroke Scale - NIH Stroke Score Date: 10/06/2019 Time: 13:17 Total Score = 2 1a. Level of Consciousness (LOC) - 0(Alert) 1b. Level of Consciousness (LOC) (Year \T\ Age) - 0(Both) 1c. LOC Commands (Open \T\ Closes Eyes/Child Development Instructor) - 0(Both) 2. Best Gaze (Lateral Gaze Paresis) - 0(Normal) 3. Visual Field Loss - 0(No visual loss) 4. Facial Palsy - 0(Normal) 5a. Left Arm: Motor (10-second hold) - 0(No drift) 5b. Right Arm: Motor (10-second hold) - 0(No drift) 6a. Left Leg: Motor (5-second hold - always test supine) - 0(No drift) 6b. Right Leg: Motor (5-second hold - always test supine) - 1(Drift) 7. Limb Ataxia (finger/nose \T\ heel/ortiz - test with eyes open) - 1(Present in one limb) 8. Sensory Loss (pinprick arms/legs/face) - 0(Normal) 9. Best Language: Aphasia (description/naming/reading) - 0(No aphasia) 10. Dysarthria (speech clarity - read or repeat words) - 0(Normal) 11. Extinction and Inattention (visual/tactile/auditory/spatial/personal) - 0(No abnormality) Initials: jr8 NIH Stroke Scale - NIH Stroke Score Date: 10/06/2019 Time: 15:06 Total Score = 2 1a. Level of Consciousness (LOC) - 0(Alert) 1b. Level of Consciousness (LOC) (Year \T\ Age) - 0(Both) 1c. LOC Commands (Open \T\ Closes Eyes/Child Development Instructor) - 0(Both) 2. Best Gaze (Lateral Gaze Paresis) - 0(Normal) 3. Visual Field Loss - 0(No visual loss) 4. Facial Palsy - 0(Normal) 5a. Left Arm: Motor (10-second hold) - 0(No drift) 5b. Right Arm: Motor (10-second hold) - 0(No drift) 6a. Left Leg: Motor (5-second hold - always test supine) - 0(No drift) 6b. Right Leg: Motor (5-second hold - always test supine) - 1(Drift) 7. Limb Ataxia (finger/nose \T\ heel/ortiz - test with eyes open) - 0(Absent) 8. Sensory Loss (pinprick arms/legs/face) - 1(Mild to moderate loss) 9. Best Language: Aphasia (description/naming/reading) - 0(No aphasia) 10. Dysarthria (speech clarity - read or repeat words) - 0(Normal) 11. Extinction and Inattention (visual/tactile/auditory/spatial/personal) - 0(No abnormality) Initials: NIH Stroke Scale - NIH Stroke Score Date: 10/06/2019 Time: 16:00 Total Score = 2 1a. Level of Consciousness (LOC) - 0(Alert) 1b. Level of Consciousness (LOC) (Year \T\ Age) - 0(Both) 1c. LOC Commands (Open \T\ Closes Eyes/Child Development Instructor) - 0(Both) 2. Best Gaze (Lateral Gaze Paresis) - 0(Normal) 3. Visual Field Loss - 0(No visual loss) 4. Facial Palsy - 0(Normal) 5a. Left Arm: Motor (10-second hold) - 0(No drift) 5b. Right Arm: Motor (10-second hold) - 0(No drift) 6a. Left Leg: Motor (5-second hold - always test supine) - 0(No drift) 6b. Right Leg: Motor (5-second hold - always test supine) - 1(Drift) 7. Limb Ataxia (finger/nose \T\ heel/ortiz - test with eyes open) - 0(Absent) 8. Sensory Loss (pinprick arms/legs/face) - 1(Mild to moderate loss) 9. Best Language: Aphasia (description/naming/reading) - 0(No aphasia) 10. Dysarthria (speech clarity - read or repeat words) - 0(Normal) 11. Extinction and Inattention (visual/tactile/auditory/spatial/personal) - 0(No abnormality) Initials: Signatures: Dispatcher [employer] Pam Gentile RN RN dw Williams, Irene, RN RN iw Dave Phillips, PA PA jr8 Eddie Vega, RN RN jl7 Barrie Mcgovern MD MD ps1 Tonia Nguyen RN ss Corrections: (The following items were deleted from the chart) 14:30 14:29 Chest Pa And Lat (2 Views) ordered. EDMD EDMS 14:32 14:25 EKG Electrocardiogram ordered. EDMD EDMS 14:38 14:19 Stroke Protocol ordered. [facility] EDMD 15:34 13:45 Hospitalization Ordered by Cuco Veronica MD for Inpatient Admission. dw Preliminary diagnosis is Cerebral infarction. Bed requested for Intensive Care Unit. Status is Inpatient Admission. Condition is Stable. Problem is new. Symptoms are unchanged. UTI on Admission? No. jr8 16:16 13:23 Home Meds: unknown BP med daily; [facility] 16:16 13:23 PSHx: None; [facility] 16:56 15:34 10/06/2019 13:45 Hospitalization Ordered by Cuco Veronica MD for Inpatient Admission. Preliminary diagnosis is Cerebral infarction. Bed requested for Intensive Care Unit. Status is Inpatient Admission. Condition is Stable. Problem is new. Symptoms are unchanged. UTI on Admission? No. dw
--- NOTE | 2019-10-06 13:50 | RAD REPORT ---
EXAM DESCRIPTION: Elian Single View10/06/2019 1:42 pm CLINICAL HISTORY: CVA COMPARISON: None FINDINGS: The lungs appear clear of acute infiltrate. The heart is normal size Postsurgical changes involve the chest. IMPRESSION: No acute abnormalities displayed
[2019-10-06 14:06] LABS: BUN Blood Urea Nitrogen 16 mg/dL (7-18); Bicarbonate 30 mmol/L (21-32); Glucose Level 302 mg/dL (74-106); Potassium 3.7 mmol/L (3.5-5.1); Sodium Level 133 mmol/L (136-145)
[2019-10-06 14:07] LABS: Magnesium 2.3 mg/dL (1.8-2.4); Troponin (Emerg Dept Use Only) < 0.02 ng/mL (0.0-0.045)
[2019-10-06] MEDS ORDERED: ACETAMINOPHEN 500 MG TAB PO PRN (14:18)
[2019-10-06] MEDS ORDERED: ONDANSETRON 4 MG/2 ML VIAL IV PRN (14:18)
[2019-10-06 15:51] LABS: Folic Acid, (Folate) 13.3 ng/mL (3.1-17.5)
--- NOTE | 2019-10-06 17:41 | EKG ---
Test Date: 2019-10-06 Test Time: 13:15:07 Shipping And Receiving Coordinator: ANGEL MEASUREMENT RESULTS: Intervals: Rate: 102 AL: 206 QRSD: 82 QT: 366 QTc: 477 [place]: P: 53 AL: 206 QRS: 30 T: 67 INTERPRETIVE STATEMENTS: Sinus tachycardia with premature supraventricular complexes Otherwise normal ECG Compared to ECG 02/21/2019 16:37:27 Sinus rhythm no longer present Electronically Signed On 10-06-19 17:41:03 RN UTILIZATION MANAGEMENT UM by Mayo Chamorro
[2019-10-06] MEDS: NA CHLORIDE 0.9% 1,000 ML IV SCH (17:48)
--- NOTE | 2019-10-06 18:16 | RAD REPORT ---
EXAM DESCRIPTION: MRI - Brain Wo Cont - 10/06/2019 5:56 pm CLINICAL HISTORY: Stroke s/p TIA Headache, drowsiness, CVA symptomology COMPARISON: Ct Stroke Brain Wo Cont dated 10/06/2019; Chest Single View dated 10/06/2019 TECHNIQUE: Multi-sequence, multiplanar MR imaging of the brain was performed without contrast. FINDINGS: No intracranial hemorrhage, hydrocephalus or extra-axial fluid collections. Mild brain atr ophy with mild periventricular and deep white matter chronic microvascular ischemic changes noted. DW I is negative for acute CVA. In the anterior left temporal lobe, a 16 x 15 mm area of T2 and FLAIR hyperintensity is present. Mastoid air cells and paranasal sinuses are clear. IMPRESSION: No evidence of acute CVA. Indeterminate 16 x 15 mm area of T2/FLAIR hyperintensity in the left temporal lobe is present. Follow up post-contrast MR brain sequences would be useful for further evaluation.
[2019-10-06] MEDS ORDERED: ATORVASTATIN 20 MG TAB PO SCH (21:00)
[2019-10-06] MEDS ORDERED: INFLUENZA VACCINE (for 3y+) 0.5 ML DOSE IMVAC ONE (21:00)
[2019-10-06] MEDS ORDERED: PNEUMOCOCCAL VACCINE 0.5 ML IMVAC ONE (21:00)
[2019-10-06] MEDS: ATORVASTATIN 40 MG TAB PO SCH (21:39)
--- NOTE | 2019-10-06 23:15 | P.HP ---
Certification for Inpatient Patient admitted to: Inpatient With expected LOS: >2 Midnights Patient will require the following post-hospital care: None Practitioner: I am a practitioner with admitting privileges, knowledge of patient current condition, hospital course, and medical plan of care. Services: Services provided to patient in accordance with Admission requirements found in Title 42 Section 412.3 of the Code of Federal Regulations Patient History Date of Service: 10/06/19 Reason for admission: Acute CVA; right lower extremity weakness History of Present Illness: Patient is a 59-year-old gentleman who was at work when he suddenly noted that his right side was weak. He had right-sided paresthesias. He also had right lower extremity weakness. He was brought into the emergency room. In the ER after initial CT scan of the brain was negative. He was given tPA. Patient symptoms persisted. MRI did not reveal an acute CVA. However, patient did have some abnormal findings around the temporal lobe. This will be further evaluated by Neurology. Clinically patient is still having some right-sided weakness and will continue to monitor him in the intensive care unit. Patient will be treated for an acute CVA at this time. Allergies No Known Allergies Allergy (Unverified 10/06/19 16:42) Home Medications: Lisinopril/Hydrochlorothiazide [Lisinopril-Hctz 20-12.5 mg Tab] 1 each PO DAILY 10/06/19 Metformin HCl [Glucophage] 500 mg PO BIDWM 10/06/19 - Past Medical/Surgical History Has patient received pneumonia vaccine in the past: No Diabetic: Yes -: CVA 2004 -: Aortic anerusim and repair -: HTN -: ETOH 4-5 beers daily -: DM 2 -: Aneurism repair -: left ankle sx - Family History Father Family History: Reviewed- Non-Contributory - Social History Smoking Status: Former smoker Alcohol use: Yes CD- Drugs: No Caffeine use: Yes Place of Residence: Home Review of Systems 10-point ROS is otherwise unremarkable Physical Examination - Vital Signs Temperature: 99.3 F Blood Pressure: 156/74 Pulse: 89 Respirations: 16 Pulse Ox (%): 98 - Physical Exam General: Alert, In no apparent distress, Oriented x3 HEENT: Atraumatic, PERRLA, Mucous membr. moist/pink, EOMI, Sclerae nonicteric Neck: Supple, 2+ carotid pulse no bruit, No LAD, Without JVD or thyroid abnormality Respiratory: Clear to auscultation bilaterally, Normal air movement Cardiovascular: Regular rate/rhythm, Normal S1 S2, No murmurs Gastrointestinal: Normal bowel sounds, Soft and benign, Non-distended, No tenderness Musculoskeletal: No clubbing, No swelling, No tenderness Integumentary: No rashes Neurological: Normal gait, Normal speech, Normal strength at 5/5 x4 extr, Normal tone, Sensation intact, Cranial nerves 3-12 intact, Normal affect Lymphatics: No axilla or inguinal lymphadenopathy - Studies Laboratory Data (last 24 hrs) 10/06/19 13:30: PT 12.3, INR 1.04, APTT 33.0 10/06/19 13:30: WBC 8.4, Hgb 14.7, Hct 41.0, Plt Count 240 10/06/19 13:30: Sodium 133 L, Potassium 3.7, BUN 16, Creatinine 1.70 H, Glucose 302 H, Magnesium 2.3 Assessment & Plan - Problems (Diagnosis) (1) Acute CVA (cerebrovascular accident) Current Visit: Yes Status: Acute (2) HTN (hypertension) Current Visit: Yes Status: Acute (3) DM2 (diabetes mellitus, type 2) Current Visit: Yes Status: Acute (4) Aortic arch aneurysm Current Visit: Yes Status: Acute - Plan Plan: 1. Anti-platelet therapy 2. Statin therapy 3. Neurology consultation 4. Neuro checks q.2 hr x3; then q.6 hr MRI of the back brain is pending 5. PT and speech therapy 6. Lipid profile 7. DVT prophylaxis 8. GI prophylaxis Discharge Plan: Home Plan to discharge in: Greater than 2 days - Advance Directives Does patient have a Living Will: No Does patient have a Durable POA for Healthcare: No - Code Status/Comfort Care Code Status Assessed: Yes Code Status: Full Code Critical Care: Yes Time Spent Managing PTS Care (In Minutes): 60
[2019-10-07 00:10] LABS: RPR (Rapid Plasma Reagin) NON-REACT (NON-REACT)
[2019-10-07] MEDS: NA CHLORIDE 0.9% 1,000 ML IV SCH ×2 (04:20→08:59)
[2019-10-07 05:10] LABS: Absolute Lymphocytes (CBC) 1.7 K/uL (0.7-4.9); Basophils % 0.8 % (0-1.3); Lymphocytes % 27.9 % (15.3-44.8); MPV 7.4 fL (7.6-11.3); RBC Red Blood Cell Count 4.65 M/uL (4.33-5.43)
[2019-10-07 05:36] LABS: Albumin 3.4 g/dL (3.4-5.0); Bilirubin Total 0.7 mg/dL (0.2-1.0); Magnesium 2.3 mg/dL (1.8-2.4); Phosphorus 2.9 mg/dL (2.5-4.9); Potassium 3.7 mmol/L (3.5-5.1); Protein, Total 6.6 g/dL (6.4-8.2)
--- NOTE | 2019-10-07 08:56 | RAD REPORT ---
EXAM DESCRIPTION: RAD - Chest Pa And Lat (2 Views) - 10/07/2019 8:36 am CLINICAL HISTORY: Stroke, shortness of breath COMPARISON: October 06 TECHNIQUE: PA and lateral views of the chest were obtained. FINDINGS: The lungs are still clear of any mass or consolidation. Interstitial pattern is stable. Martinez rgical changes the chest again noted. Heart size is normal and central vasculature is within normal limits. No pleural effusion or pneumothorax seen. No acute bony finding noted. No aortic abnormal ity. IMPRESSION: No acute cardiopulmonary process. No new or progressive finding from prior day imaging.
[2019-10-07] MEDS: ASPIRIN EC 81 MG TAB PO SCH (08:57)
[2019-10-07] MEDS: CLOPIDOGREL 75 MG TABLET PO SCH (08:57)
--- NOTE | 2019-10-07 11:42 | ECHO ---
HEIGHT: 5 ft 8 in WEIGHT: 161 lb 14.4 oz DATE OF STUDY: 10/07/[address]: Cuco Veronica MD 2-DIMENSIONAL: YES M.MODE: YES DOPPLER: YES COLOR FLOW: YES TDS: NO PORTABLE: NO DEFINITY: NO BUBBLE STUDY: NO DIAGNOSIS: STROKE CARDIAC HISTORY: CATHERIZATION: NO SURGERY: YES PROSTHETIC VALVE: NO PACEMAKER: NO MEASUREMENTS (cm) DIASTOLIC (NORMALS) SYSTOLIC (NORMALS) IVSd 1.1 (0.6-1.2) LA Diam 4.2 (1.9-4.0) LVEF 67% LVIDd 4.9 (3.5-5.7) LVIDs 3.1 (2.0-3.5) %FS 37% LVPWd 1.2 (0.6-1.2) Ao Diam 2.9 (2.0-3.7) 2 DIMENSIONAL ASSESSMENT: RIGHT ATRIUM: NORMAL LEFT ATRIUM: DILATED RIGHT VENTRICLE: NORMAL LEFT VENTRICLE: NORMAL TRICUSPID VALVE: NORMAL MITRAL VALVE: MILD MITRAL ANNULAR CALCIFICATION PULMONIC VALVE: NORMAL AORTIC VALVE: MILD SCLEROSIS PERICARDIAL EFFUSION: NONE AORTIC ROOT: NORMAL LEFT VENTRICULAR WALL MOTION: NORMAL DOPPLER/COLOR FLOW: TRACE AORTIC REGURGITATION. OTHERWISE NORMAL. IMPAIRED LEFT VENTRICULAR RELAXATION. COMMENTS: NORMAL LEFT VENTRICULAR EJECTION FRACTION. DILATED LEFT ATRIUM. MILD MITRAL ANNULAR CALCIFICATION. MILD AORTIC SCLEROSIS WITH NO AORTIC STENOSIS. TRACE AORTIC REGURGITATION. IMPAIRED LEFT VENTRICULAR RELAXATION. TECHNOLOGIST: Patrice CARDOZA
--- NOTE | 2019-10-07 13:24 | P.PN ---
Subjective Date of Service: 10/07/19 Patient is feeling much better. his right lower extremity weakness has resolved. he is clinically doing much better. There is an area on the temporal lobe on FLAIR imaging that is going to need MRI with contrast to further evaluate. This does not look like an acute CVA. Review of Systems 10-point ROS is otherwise unremarkable Physical Examination - Vital Signs Temperature: 99.3 F Blood Pressure: 156/74 Pulse: 89 Respirations: 16 Pulse Ox (%): 98 - Physical Exam General: Alert, In no apparent distress, Oriented x3 Respiratory: Clear to auscultation bilaterally, Normal air movement Cardiovascular: Regular rate/rhythm, Normal S1 S2 Gastrointestinal: Normal bowel sounds, Soft and benign, Non-distended, No tenderness Musculoskeletal: No clubbing, No swelling, No tenderness Neurological: Normal speech, Normal tone, Sensation intact, Cranial nerves 3-12 intact - Studies Laboratory Data (last 24 hrs) 10/06/19 13:30: PT 12.3, INR 1.04, APTT 33.0 10/06/19 13:30: WBC 8.4, Hgb 14.7, Hct 41.0, Plt Count 240 10/06/19 13:30: Sodium 133 L, Potassium 3.7, BUN 16, Creatinine 1.70 H, Glucose 302 H, Magnesium 2.3 Medications List Reviewed: Yes Assessment & Plan - Problems (Diagnosis) (1) Acute CVA (cerebrovascular accident) Current Visit: Yes Status: Acute (2) HTN (hypertension) Current Visit: Yes Status: Acute (3) DM2 (diabetes mellitus, type 2) Current Visit: Yes Status: Acute (4) Aortic arch aneurysm Current Visit: Yes Status: Acute - Plan Plan: Continue with current plan of care 1. Anti-platelet therapy 2. Statin therapy 3. Neurology consultation appreciated 4. MRI of the brain showed an area in the temporal lobe; will need to repeat an MRI with contrast 5. PT and speech therapy 6. Lipid profile 7. DVT prophylaxis 8. GI prophylaxis Discharge Plan: Home Plan to discharge in: Greater than 2 days - Advance Directives Does patient have a Living Will: No Does patient have a Durable POA for Healthcare: No - Code Status/Comfort Care Code Status: Full Code Critical Care: No Time Spent Managing PTS Care (In Minutes): 35
--- NOTE | 2019-10-07 20:19 | RAD REPORT ---
EXAM DESCRIPTION: CT - Head Brain Wo Cont - 10/07/2019 4:35 pm CLINICAL HISTORY: cva COMPARISON: 10/06/2019 MRI TECHNIQUE: Computed axial tomography of the head was obtained. IV contrast was not requested. All CT scans are performed using dose optimization technique as appropriate and may include automated exposure control or mA/KV adjustment according to patient size. FINDINGS: An intracranial bleed is not seen . The ventricles are normal in caliber. No extra-axial fluid collection is noted. 16 millimeter low-density area within the left temporal lobe is unchanged. Mild low-density within periventricular, deep and subcortical white matter likely ischemic changes se condary to small vessel disease Fluid within the sinuses/ mastoids is not seen. IMPRESSION: 16 millimeter low-density area within the left temporal lobe. This may represent an old infarct. An area of cerebritis is probably less likely. MRI with contrast is recommended if there is enhancement to indicate an active process
[2019-10-07] MEDS: ATORVASTATIN 40 MG TAB PO SCH (20:30)
[2019-10-07] MEDS: HYDRALAZINE HCL 20 MG/ML VIAL IV PRN (21:32)
--- NOTE | 2019-10-07 23:25 | CON ---
Reason For Consultation: Consultation called because of a stroke. History Of Present Illness: Mr. Roberts is a 59-year-old right-handed patient who had a prio r stroke in 2003, also has hypertension, diabetes mellitus, and dyslipidemia along with chronic moder ate alcohol use and aortic aneurysm repair, who comes to the hospital with sudden onset of right lowe r and upper extremity weakness with paresthesias. He was at work yesterday when these symptoms occur red suddenly. He arrived at [facility] on 11/21 yesterday and his symptoms onset was around 1130. He received tPA bolus and IV drip and was sent to the ICU for monitoring. Within about 5 to 10 hours of the administration of tPA, his deficits resolved and he said he is at this point, which i s about 24 hours more after he received the tPA, he is back to baseline. His head CT scan did not sh ow any acute ischemic or hemorrhagic change. His brain MRI done yesterday did show an area of 16 x 1 5 mm of T2 and FLAIR hyperintensity in the left temporal lobe. However, it was negative for an acute CVA by diffusion-weighted imaging being negative. He did get a repeat head CT scan today. Results are pending. His echocardiogram shows ejection fraction of 67%, dilated left atrium, mitral annular calcification, aortic sclerosis but no stenosis, trace aortic regurgitation, and impaired left ventri cular relaxation. His electrocardiogram showed sinus tachycardia with premature supraventricular com plexes. His blood work revealed essentially unremarkable complete blood count with differential, coa gulation panel. He does have a stroke workup pending. Chemistries showed mildly elevated creatinine consistent with dehydration. His creatinine was 1.74. Glucose was elevated at 305, trig lycerides elevated to 229, LDL cholesterol 74, total cholesterol 174. Vitamin D level was low at 25. 2. Homocystine level is pending. Folic acid normal at 13.3 and liver function studies essentially u nremarkable. RPR nonreactive. Past Medical History: As indicated above. Surgical History: Aneurysm repair, left ankle surgery. Social History: The patient drinks alcohol regularly and smoked in the past. Allergies: NO KNOWN DRUG ALLERGIES. Medications: At home, metformin 500 mg twice daily, lisinopril/hydrochlorothiazide 12.5 mg daily. H e reports taking an aspirin 81 mg daily as well. Family History: Noncontributory. Review of Systems: Aside from mentioned, no recent fevers, chills, nausea, vomiting, myalgias, arthralgias, headache, we ight change, rash, psychiatric complaints, gastrointestinal or genitourinary issues. Physical Examination: Vital Signs: Blood pressure ranged 139 to 170/87 to 93, pulse in the mid 70s up to 79, oxygen satura tion 100% on room air, respiratory rate 14 to 16, and temperature is up to 99.3. Weight 173 pounds, height 5 feet 8 inches, BMI 26.3. General: Mr. Roberts is resting comfortably in bed in ICU. His is at the bedside. HEENT: He is normocephalic, atraumatic. Sclerae anicteric. Oropharynx pink and moist. Neck: Supple. Chest: Clear. Heart: Regular. Extremities: Show no edema, cyanosis, clubbing. Neurologic: He is alert and oriented to person, place, and situation. Follows all commands appropri ately. Has no cranial nerve deficits on 2 through 12. Motor examination in the upper and lower extr emities, he has no focal deficits. They are resolved. Sensory exam intact to light touch, pinprick, temperature in arms and legs. Reflexes 2+ in upper and lower extremity, 1+ at the heels. Coordinat ion intact in the upper and lower extremities. His gait has good stance, stride, and arm swing. Assessment: Mr. Roberts is a 59-year-old patient with multiple stroke risk factors including hypertens ion, dyslipidemia, diabetes mellitus, good compliance actually with that medications, although he did say his blood sugar will be followed by his primary care physician, but he does not follow blood sug ars at home. He says his blood pressures are in the at home. Plan: The patient should be on aspirin along with Plavix and folic acid and should have aggressive c ontrol of hypertension, diabetes mellitus, and dyslipidemia. He was strongly advised to stop drinkin g alcohol and to not take up smoking again. He was told of changes in his diet, hydration, exercise, and rest which may impact risk for additional stroke. After discharge, follow up with Dr. Rodríguez one month later. CHELSY Voice ID: [id number] Report ID: [id number]
[2019-10-08] MEDS: HYDRALAZINE HCL 20 MG/ML VIAL IV PRN (05:01)
[2019-10-08] MEDS: NA CHLORIDE 0.9% 1,000 ML IV SCH (05:02)
[2019-10-08 05:32] LABS: Magnesium 2.1 mg/dL (1.8-2.4); Phosphorus 2.3 mg/dL (2.5-4.9); Potassium 3.7 mmol/L (3.5-5.1)
[2019-10-08 06:07] VITALS: BMI 26.2
[2019-10-08] MEDS ORDERED: POTASSIUM PHOS IN 0.9 % NACL 15 MMOL/250 ML BAG IV ONE (06:30)
--- NOTE | 2019-10-08 08:27 | P.DS ---
Admission Date: 10/06/19 Discharge Date: 10/08/19 Disposition: ROUTINE DISCHARGE Discharge Condition: GOOD Reason for Admission: Acute CVA; right lower extremity weakness Brief History of Present Illness: patient with hx of HTN , DM , prior CVA admitetd for right sided tingling and right leg numbness . he was given TPA on arrival . intial head CT negative . He had an MRI brain with 16 mm flare in left temporal lobe Hospital Course: Patient symptoms improved and resolved within 24 hrs of presentation . he had a repeat head CT done which dowsn no change in lesion on left temporal area which was felt to be old vs new infarct and a follow up MRI brain with contrast recommended . Patient weakness resolved and he is ambulating with no gait instability . Fither MRI brain with contarst was then cancelled . Patient was evaluated by neurology and recommended more aggressive control of his HTN and diabetes . HIS Lpidi pnelw as elevated and he was started on both lipitor and gemfibrozil . He is also on both plavic and aspirin . he will follow with his PCP in 1 week and neuro in 1 month Vital Signs/Physical Exam: Temp Pulse Resp BP Pulse Ox 99.3 F 82 16 171/89 H 98 10/08/19 06:20 10/08/19 08:00 10/08/19 08:00 10/08/19 08:00 10/08/19 08:00 General: Alert, In no apparent distress, Oriented x3 HEENT: Atraumatic, Normocephalic Neck: Supple, 2+ carotid pulse no bruit, JVD not distended Cardiovascular: No edema, Regular rate/rhythm, Normal S1 S2 Gastrointestinal: Normal bowel sounds, Soft and benign Musculoskeletal: No swelling, No tenderness Neurological: Normal gait, Normal speech, Normal strength at 5/5 x4 extr, Sensation intact, Cranial nerves 3-12 intact, Normal reflexes 2+ Laboratory Data at Discharge: WBC 6.2 K/uL (4.3-10.9) D 10/07/19 04:39 Hgb 14.8 g/dL (13.6-17.9) 10/07/19 04:39 Hct 42.0 % (39.6-49.0) 10/07/19 04:39 Plt Count 227 K/uL (152-406) 10/07/19 04:39 PT 12.3 SECONDS (9.5-12.5) 10/06/19 13:30 INR 1.04 10/06/19 13:30 APTT 33.0 SECONDS (24.3-36.9) 10/06/19 13:30 Sodium 137 mmol/L (136-145) 10/08/19 04:20 Potassium 3.7 mmol/L (3.5-5.1) 10/08/19 04:20 BUN 11 mg/dL (7-18) 10/08/19 04:20 Creatinine 0.93 mg/dL (0.55-1.3) 10/08/19 04:20 Glucose 189 mg/dL (74-106) H 10/08/19 04:20 Phosphorus 2.3 mg/dL (2.5-4.9) L 10/08/19 04:20 Magnesium 2.1 mg/dL (1.8-2.4) 10/08/19 04:20 Total Bilirubin 0.7 mg/dL (0.2-1.0) 10/07/19 04:39 AST 10 U/L (15-37) L 10/07/19 04:39 ALT 20 U/L (12-78) 10/07/19 04:39 Alkaline Phosphatase 72 U/L (45-117) 10/07/19 04:39 Triglycerides 329 mg/dL (<150) H 10/07/19 04:39 Cholesterol 170 mg/dL (<200) 10/07/19 04:39 HDL Cholesterol 30 mg/dL (40-60) L 10/07/19 04:39 Cholesterol/HDL Ratio 5.67 10/07/19 04:39 Home Medications: Lisinopril/Hydrochlorothiazide [Lisinopril-Hctz 20-12.5 mg Tab] 1 each PO DAILY 10/06/19 Metformin HCl [Glucophage*] 500 mg PO BIDWM 10/06/19 Aspirin [Aspirin EC 81 MG] 81 mg PO DAILY #30 tablet. 10/08/19 Atorvastatin Calcium [Lipitor] 40 mg PO BEDTIME #30 tab 10/08/19 Clopidogrel Bisulfate [Plavix*] 75 mg PO DAILY #30 tablet 10/08/19 Gemfibrozil [Lopid*] 600 mg PO BID #30 tab 10/08/19 New Medications: Aspirin [Aspirin EC 81 MG] 81 mg PO DAILY #30 tablet. Atorvastatin Calcium [Lipitor] 40 mg PO BEDTIME #30 tab Clopidogrel Bisulfate [Plavix*] 75 mg PO DAILY #30 tablet Gemfibrozil [Lopid*] 600 mg PO BID #30 tab Diet: Low sodium Activity: Ad apolinar Followup: Farhad Gil MD [OUTSIDE PHYSICIAN] - Edmund Rodríguez MD [ASSOCIATE-ACTIVE - CAN ADMIT] - Time spent managing pt's care (in minutes): 39
[2019-10-08] MEDS ORDERED: HOME MED 1 EA UNK (Lisinopril/Hydrochlorothiazide [Lisinopril-Hctz 20-12.5 Mg Tab] 1 EACH) PO SCH (09:00)
[2019-10-08] MEDS ORDERED: lisinopriL 20 MG TAB PO SCH (09:00)
[2019-10-08] MEDS ORDERED: hydroCHLOROthiazide 12.5 MG CAP PO SCH (09:00)
[2019-10-08] MEDS ORDERED: GLUCERNA SHAKE 237 ML CAN PO SCH ×2 (09:00)
[2019-10-08] MEDS ORDERED: GEMFIBROZIL 600 MG TAB PO SCH (09:00)
[2019-10-08] MEDS: CLOPIDOGREL 75 MG TABLET PO SCH (09:16)
[2019-10-08] MEDS: ASPIRIN EC 81 MG TAB PO SCH (09:16)
[2019-10-08 09:38] VITALS: O2SAT 98
[2019-10-08] MEDS ORDERED: PNEUMOCOCCAL VACCINE 0.5 ML IMVAC ONE (10:00)
[2019-10-08] MEDS ORDERED: INFLUENZA VACCINE (for 3y+) 0.5 ML DOSE IMVAC ONE (10:00)
[2019-10-08 10:27] VITALS: BP 160/83; TEMP 98.8
[2019-10-08] MEDS ORDERED: METFORMIN HCL 500 MG TAB PO SCH (17:00)
[2019-10-09 15:14] LABS: Albumin, (SPE) 4.1 g/dL (3.8-4.8); Alpha-1-Globulins 0.3 g/dL (0.2-0.3); Alpha-2-Globulins 0.6 g/dL (0.5-0.9); Gamma Globulins 1.1 g/dL (0.8-1.7); INTERPRETATION REPORT
[2019-10-11 13:06] LABS: Prothrombin Gene Analysis Test REPORT
[2019-10-12 14:15] LABS: Protein C Antigen 91 % (70-140)
== END 2019-10-08 10:30 | disposition home or self-care (01) | DRG 66 ==
LOC: ER 13:14 → ERHOLD 14:19 → 3RD-ICU 16:35
PROVIDERS: ADMIT Hospitalist; ATTEND Hospitalist
DX: I63.9 Cerebral infarction, unspecified (principal); G83.21 Monoplegia of upper limb affecting right dominant side; I10 Essential (primary) hypertension; E11.9 Type 2 diabetes mellitus without complications; R29.702 NIHSS score 2; E78.5 Hyperlipidemia, unspecified; E86.0 Dehydration; F10.20 Alcohol dependence, uncomplicated; Z86.73 Personal history of transient ischemic attack (TIA), and cerebral infarction without residual deficits; Z79.4 Long term (current) use of insulin
CPT/HCPCS: 36415; 70450; 70551; 71045; 71046; 80048; 80053; 80061; 81240; 81241; 82306; 82607; 82746; 82947; 83090; 83735; 84100; 84165; 84484; 85014; 85018; 85025; 85300; 85302; 85305; 85306; 85610; 85730; 86021; 86147; 86592; 90471; 90670; 92610; 92977; 93005; 93306; 97112; 97116; 97161; 99285; J0360; J2997; J7030

== ENCOUNTER 2020-10-23 10:56 | Day surgery (SDC) | payer OTHER ==
[2020-10-23] MEDS ORDERED: NA CHLORIDE 0.9% 1,000 ML ONE (11:43)
[2020-10-23] MEDS ORDERED: propofoL 200 MG/20 ML VIAL IV ONE ×2 (12:09→13:41)
[2020-10-23] MEDS ORDERED: LIDOCAINE 1% MPF 5 ML VIAL ONE (12:09)
[2020-10-23] MEDS ORDERED: MIDAZOLAM HCL 2 MG/2 ML INJ ONE (12:10)
[2020-10-23] MEDS ORDERED: EPINEPHRINE/PF 1 MG/ML AMP ONE (12:39)
[2020-10-23] MEDS ORDERED: SIMETHICONE 40 MG/ 0.6 ML ONE (13:03)
[2020-10-23] MEDS ORDERED: FENTANYL CITR 100 MCG/2 ML ONE (13:05)
[2020-10-23 14:14] VITALS: TEMP 97.8; O2SAT 96
[2020-10-23 14:15] VITALS: BP 161/83
--- NOTE | 2020-10-23 15:40 | OP ---
Surgeon: Smooth Bowles MD Procedure Performed: Esophagogastroduodenoscopy and colonoscopy. Plan For Anesthesia: Monitored anesthesia care. Complexity: Average. Prior to the procedures, the risks and complications of both procedures, which include, but are not l imited to bleeding, infection, perforation, and anesthesia complication were explained and discussed with the patient. He understands and consented for both procedures. Indication For Procedure: Longstanding GERD, diarrhea. Technique: Initially, we performed the upper endoscopy. After anesthesia, the scope was advanced th rough the mouth and carefully guided up till the third portion of the duodenum. After completion of that examination, scope and equipment were withdrawn and procedure terminated in a safe manner. Findings: Esophagus: No gross lesion seen in the upper and mid esophagus. In the distal esophagus, there was a small hiatal hernia visualized. The Z-line was irregular. Biopsies taken. Stomach: Mild patchy erythema seen in the body and antrum. Biopsies taken. Duodenum: The bulb second and third portions appeared normal. Small bowel biopsies taken to rule ou t celiac disease. COLONOSCOPY: Indication For Procedure: Colitis and diverticulosis on CT, diarrhea, abdominal pain. Technique: After turning the patient from an upper endoscopy to switching over, a digital rectal exa m was performed. Subsequently, the scope was inserted into the rectum and carefully guided up till t he terminal ileum. Then, the scope was gradually withdrawn while carefully examining the mucosa. Sc ope withdrawal time was 15 minutes. Quality of prep was fair. Findings: The terminal ileum appeared normal. In the cecum, a large 12 mm flat polyp was visualized . This was removed by piecemeal hot snare polypectomy after saline lift injection. In the hepatic f lexure, a 7 mm sessile polyp was seen. This was removed with hot biopsy polypectomy. In the transve rse colon, a 5 mm sessile polyp was seen. This was removed with hot biopsy polypectomy. Random colo n biopsies taken from different segments and particularly from the descending and sigmoid colon. Sca ttered diverticula seen from the sigmoid up till the ascending colon. Retroflexion revealed grade 1- 2 internal hemorrhoids. Complications: None. Tolerance To Anesthesia: Excellent. Postoperative Diagnoses: Hiatal hernia, gastritis for the colon, diverticulosis, polyp. Plan: 1.Await pathology results. 2.Continue PPI. Follow up in the GI clinic in 2 weeks. Based on biopsy results for the upper if th ere is any evidence of Ryan, will need surveillance. Based on the biopsy results of the colon if the cecal polyp is adenomatous, will need staged colonoscopy in 1 year. US/MODL Voice ID: [id number] Report ID: [id number]
== END 2020-10-23 14:06 | disposition home or self-care (01) ==
LOC: OR 10:56
PROVIDERS: ATTEND Internal Medicine Gastroenterology
PROC: 0DB78ZX Excision of Stomach, Pylorus, Via Natural or Artificial Opening Endoscopic, Diagnostic (ICD-10-PCS; 2020-10-23)
PROC: 0DB68ZX Excision of Stomach, Via Natural or Artificial Opening Endoscopic, Diagnostic (ICD-10-PCS; 2020-10-23)
PROC: 0DBH8ZX Excision of Cecum, Via Natural or Artificial Opening Endoscopic, Diagnostic (ICD-10-PCS; 2020-10-23)
PROC: 0DBL8ZX Excision of Transverse Colon, Via Natural or Artificial Opening Endoscopic, Diagnostic (ICD-10-PCS; 2020-10-23)
PROC: 0DBM8ZX Excision of Descending Colon, Via Natural or Artificial Opening Endoscopic, Diagnostic (ICD-10-PCS; 2020-10-23)
PROC: 0DBN8ZX Excision of Sigmoid Colon, Via Natural or Artificial Opening Endoscopic, Diagnostic (ICD-10-PCS; 2020-10-23)
PROC: 0DB38ZX Excision of Lower Esophagus, Via Natural or Artificial Opening Endoscopic, Diagnostic (ICD-10-PCS; principal; 2020-10-23 12:00)
PROC: 0DB88ZX Excision of Small Intestine, Via Natural or Artificial Opening Endoscopic, Diagnostic (ICD-10-PCS; 2020-10-23 12:00)
DX: K21.9 Gastro-esophageal reflux disease without esophagitis (principal); K44.9 Diaphragmatic hernia without obstruction or gangrene; K57.30 Diverticulosis of large intestine without perforation or abscess without bleeding; K29.60 Other gastritis without bleeding; D12.3 Benign neoplasm of transverse colon; R16.0 Hepatomegaly, not elsewhere classified; R19.7 Diarrhea, unspecified; R10.84 Generalized abdominal pain; R06.83 Snoring; Z20.828 Contact with and (suspected) exposure to other viral communicable diseases; D12.0 Benign neoplasm of cecum; E11.9 Type 2 diabetes mellitus without complications; I10 Essential (primary) hypertension; E78.00 Pure hypercholesterolemia, unspecified; F17.220 Nicotine dependence, chewing tobacco, uncomplicated; E66.3 Overweight; Z68.26 Body mass index [BMI] 26.0-26.9, adult; K64.9 Unspecified hemorrhoids
CPT/HCPCS: 88312; 82947; 88305; 43239; 45385; 45384; 45380; U0002; J2704 ×2; J2250; J3010; J7030; J0171

== ENCOUNTER 2022-07-17 06:12 | Observation (INO) | payer OTHER ==
--- OUTSIDE RECORDS SUMMARY | 2022-07-17 06:16 | XMS REPORT | Continuity of Care Document ---
:1960 Author Organization [facility] t Address [address] [place] [address] Care Team Providers Name Role Phone ESTELLA BENITEZ Primary Care Physician Unavailable BARRIE MCGOVERN Attending Clinician Unavailable Barrie Mcgovern DO Attending Clinician BARRIE MCGOVERN Admitting Clinician Unavailable Payers Payer Name Policy Type Policy Number Effective Date Expiration Date S [employer]CIAL [id number] 2021 NON-CONTRACT 00:00:00 GENERIC Problems Condition Condition Condition Status Onset Resolution Last Treating Co mments Source Name Details Category Date Date Treatment Clinician Date Type 2 Type 2 Disease Active Univers diabetes diabetes 04-09 ity of mellitus mellitus 00:00: [place] without without 00 Medical complicati complicati Br anch on, on, without without long-term long-term current current use of use of insulin insulin Essential Essential Disease Active Uni vers hypertensi hypertensi 6 it y of on on 00:00: [place] 00 Medical Branch Allergies, Adverse Reactions, Alerts Allergy Allergy Status Severity Reaction(s) Onset Inactive Treating Comm ents Source Name Type Date Date Clinician NO KNOWN Drug Active Univers ALLERGIE Class ity of S [facility] Social History Social Habit Start Date Stop Date Quantity Comments Source History SDGA University o f Alcohol Frequency [place] M edical [facility] History [facility] University o f Alcohol Std Drinks [place] [facility] History [facility] University o f Alcohol Binge [place] [facility] Exposure to 2022-03-30 2022-04-09 Unable to assess Univers ity of SARS-CoV-2 (event) 00:00:00 09:28:00 [facility] Alcohol intake 2018-04-09 2018-04-09 Current drinker Unive rsity of 00:00:00 00:00:00 of alcohol [facility] [place] [facility] (finding) [place] Alcohol Comment 2018-04-07 2018-04-07 4-5 nightly Universi ty of 00:00:00 00:00:00 [facility] Cigarette 2018-03-03 2018-03-03 University of pack-years 00:00:00 00:00:00 [facility] Tobacco use and 2018-03-03 2018-03-03 Current user Univers ity of exposure 00:00:00 00:00:00 [facility] Cigarettes smoked 2018-03-03 2018-03-03 Univers ity of current (pack per 00:00:00 00:00:00 [facility] ) - Reported Branch History of tobacco 1988-04-07 Snuff User Univer sity of use 00:00:00 [facility] Sex Assigned At [birth year] Universit y of 00:00:00 00:00:00 [facility] Smoking Status Start Date Stop Date Source Former smoker 2018-03-03 00:00:00 2018-03-03 00:00:00 Universi ty of [facility] Medications Ordered Filled Start Stop Current Ordering Indication Dosage Frequency Signature Comments Components Source Medication Medication Date Date Medication? Clinician (SIG) Name Name ondansetron 2021- No 4mg 4 mg, Slow Univers (ZOFRAN 04-09 IV Push, ity of (PF)) 15:45: 15:00 ONCE, 1 [place] injection 4 00 :00 dose, On Medi justa mg 04/09/22 Branch at 1045, Routine iopamidol 2021- No [id number] 50mL 50 mL, U nivers (ISOVUE 04-09 Intravenou ity o f 370-500 mL) 14:50: 14:51 s, ONCE, 1 [place] injection 00 :00 dose, On Medica l 50 mL 04/09/22 Branch at 1000, Routine NaCl 0.9% 2021- No 1000mL at 999 Uni vers (NS) bolus 04-09 mL/hr, ity of infusion 14:45: 15:54 1,000 mL, Gustavo as 1,000 mL 00 :00 IV Medical Infusion, Branch ONCE, 1 dose, On [facility] 04/09/22 at 0945, STAT morpHINE (4 Yes 4mg 4 mg, Slow Univers mg/mL) 04-09 IV Push, ity of injection 4 14:35: Q4HPRN, Gustavo as mg 58 Starting Medical on [facility] 04/09/22 at 0935, Until Discontinu ed, Routine, Pain (scale 7-10) sodium Yes 5mL 5 mL, Univers chloride 04-09 Intravenou ity o f (NS) 14:30: s, PRN, [place] injection 5 37 Starting [facility] mL on [facility] 04/09/22 at 0930, Until Discontinu ed, Routine, IV line flushing traMADoL 2021- No [id number] 100mg Take 1 Unive rs 100 mg 24 04-09- tablet by ity of hr tablet 00:00: 04:59 mouth [place] 00 :00 daily for Medical 7 days. Branch Indication s: acute pain losartan 50 2017-0 Yes [id number] 50mg Take 1 Univers mg tablet 04-08 tablet by ity o f 00:00: mouth [place] 00 daily. [facility] Vital Signs Vital Name Observation Time Observation Value Comments Source Systolic blood 2022-04-09 14:34:00 132 [facility]Hg[facility] Diastolic blood 2022-04-09 14:34:00 94 mm[Hg] [facility] Heart rate 2022-04-09 14:34:00 74 /min [facility] Body temperature 2022-04-09 14:34:00 36.22 Neema [facility] Respiratory rate 2022-04-09 14:34:00 18 /min [facility] Body weight 2022-04-09 14:34:00 82.555 kg [facility] BMI 2022-04-09 14:34:00 26.11 kg/m2 [facility] Oxygen saturation in 2022-04-09 14:34:00 100 /min [facility] Arterial blood by [facility] Pulse oximetry Branch Procedures Procedure Date / Time Performed Performing Clinician Sour e URINALYSIS 2022-04-09 15:11:00 Barrie Mcgovern [facility] CT ABDOMEN PELVIS W 2022-04-09 14:56:45 Barrie Mcgovern ty of [place] CONTRAST Medical Branch LIPASE 2022-04-09 14:36:00 Singer [facility] COMP. METABOLIC PANEL 2022-04-09 14:36:00 Barrie Mcgovern [facility] ([id number]) [facility] CBC WITH DIFF 2022-04-09 14:36:00 Singer [facility] NOTICE OF PRIVACY 2022-04-09 14:30:05 Doctor Unassigned, No Univ [facility] PRACTICES Name Medical Branch CONSENT/REFUSAL FOR 2022-04-09 14:29:07 Doctor Unassigned, No [facility] AND Name Medical [place] TREATMENT Encounters Start End Encounter Admission Attending Care Care Encounter Source Date/Time Date/Time Type Type Clinicians Facility Department ID 2022-04-09 2022-04-09 Emergency X [facility] ERT [id number] Univers 09:31:00 10:55:00 BARRIE avery [facility] 2022-04-09 2022-04-09 Emergency Singer [facility] [id number] Univers 09:31:00 10:55:00 Barrie AGUIAR [id number] i ty [facility] [id number] [facility] [id number] [place] [id number] Branch Results Test Description Test Time Test Comments Results Result Comments Source Complete Metabolic Panel 2022-04-09 15:39:24 Test Item Value Reference Range Interpretation Comme nts NA (test code = 9369536622) 132 mmol/L 135-145 L K (test code = 7566081652) 4.9 mmol/L 3.5-5.0 CL (test code = 7033675990) 94 mmol/L 98-108 L CO2 TOTAL (test code = 5357599606) 26 mmol/L 23-31 AGAP (test code = 9847006125) 2-16 BUN (test code = 7359465362) 20 mg/dL 7-23 GLUCOSE (test code = 5804030851) 207 mg/dL 70-110 H CREATININE (test code = 1.17 mg/dL 0.60-1.25 2991046728) TOTAL BILI (test code = 0.9 mg/dL 0.1-1.2 2096207511) CALCIUM (test code = 3304827740) 9.2 mg/dL 8.6-10.6 T PROTEIN (test code = 6704377846) 7.3 g/dL 6.3-8.2 ALBUMIN (test code = 2221253722) 4.4 g/dL 3.5-5.0 ALK PHOS (test code = 9199813377) 75 U/L 34-122 ALTv (test code = 1742-6) 60 U/L 5-50 H AST(SGOT) (test code = 8258327822) 74 U/L 13-40 H eGFR (test code = 0525117085) mL/min/1.73m2 JEY (test code = JEY) Association of Glomerular Filtration Rate (GFR) and Staging of Kidney Disease* + +-------- + ------+| GFR (mL/min/1.73 m2) ?| With Kidney Damage ?| ?Without Kidney Damage+ +-- + +| ?>90 ?| ?Stage one ?| ? Normal ?+ +------- + -------+| ?60-89 ?| ?Stage two ?| ? Decreased GFR ? + +-------- + ------+| ?30-59 ?| ?Stage three ?| ? Stage three ? + +-------- + ------+| ?15-29 ?| ?Stage four ? | ? Stage four ?+ +------- + -------+| ?<15 (or dialysis) ? ?| ?Stage five ? | ? Stage five ?+ +------- + -------+ *Each stage assumes the associated GFR level has been in effect for at least three months. ?Stages 1 to 5, with or without kidney disease, indicate chronic kidney disease. Notes: Determination of stages one and two (with eGFR >59mL/min/1.73 m2) requires estimation of kidney damage for at least three months as defined by structural or functional abnormalities of the kidney, manifested by either:Pathological abnormalities or Markers of kidney damage (including abnormalities in the composition of the blood or urine or abnormalities in imaging tests). Lab Interpretation (test code = Abnormal 99407-7) [facility] [id number] 15:39:03 Test Item Value Reference Range Interpretation Comments LIPASE (test code = 5243529928) 105 U/L 0-220 Lab Interpretation (test code = Normal 11137-9) [facility] with [id number] 15:06:58 Test Item Value Reference Range Interpretation Comments WBC (test code = See_Comment [Automated 6690-2) message] The sy stem which generated this result transmitted reference range : 4.20 - 10.70 10*3/?L. The reference range was not used to interpret this result as normal/abnormal . RBC (test code = See_Comment [Automated 789-8) message] The sy stem which generated this result transmitted reference range : 4.26 - 5.52 10*6/?L. The reference range was not used to interpret this result as normal/abnormal . HGB (test code = 16.7 g/dL 12.2-16.4 H 718-7) HCT (test code = 46.7 % 38.4-49.3 4544-3) MCV (test code = 87.9 fL 81.7-95.6 787-2) MCH (test code = 31.5 pg 26.1-32.7 785-6) MCHC (test code = 35.8 g/dL 31.2-35.0 H 786-4) RDW-SD (test code = 36.6 fL 38.5-51.6 L 16785-9) RDW-CV (test code = 11.4 % 12.1-15.4 L 788-0) PLT (test code = See_Comment [Automated 777-3) message] The sy stem which generated this result transmitted reference range : 150 - 328 10*3/ ?L. The reference r ruiz was not used to interpret this result as normal/abnormal . MPV (test code = 9.0 fL 9.8-13.0 L 31140-8) NRBC/100 WBC (test See_Comment [Automat ed code = 8663748243) message] The system which generated this result transmitted reference range : 0.0 - 10.0 /100 WBCs. The refer ence range was not u sed to interpret th is result as normal/abnormal . NRBC x10^3 (test code <0.01 See_Comment [Auto mated = 1069401215) message] The s ystem which generated this result transmitted reference range : 10*3/?L. The reference range was not used to interpret this result as normal/abnormal . GRAN MAT (NEUT) % 65.3 % (test code = 770-8) IMM GRAN % (test code 0.60 % = 2165065967) LYMPH % (test code = 23.3 % 736-9) MONO % (test code = 5.9 % 5905-5) EOS % (test code = 3.9 % 713-8) BASO % (test code = 1.0 % 706-2) GRAN MAT x10^3(ANC) 4.40 10*3/uL 1.99-6.95 (test code = 9426539487) IMM GRAN x10^3 (test 0.04 10*3/uL 0.00-0.06 code = 8437103598) LYMPH x10^3 (test code 1.57 10*3/uL 1.09-3.23 = 731-0) MONO x10^3 (test code 0.40 10*3/uL 0.36-1.02 = 742-7) EOS x10^3 (test code = 0.26 10*3/uL 0.06-0.53 711-2) BASO x10^3 (test code 0.07 10*3/uL 0.01-0.09 = 704-7) Lab Interpretation Abnormal (test code = 73733-0) [facility]"
--- NOTE | 2022-07-17 07:55 | RAD REPORT ---
EXAM DESCRIPTION: RAD - Chest Single View - 07/17/2022 7:38 am CLINICAL HISTORY: Left sided paresthesia and lower extremity weakness COMPARISON: Two view chest 10/07/2019 TECHNIQUE: AP portable chest image was obtained 07/17/2022 7:38 am . FINDINGS: Lung volumes are low. No focal lung parenchymal process. Interstitial pattern within meghna l range and stable. Trachea is midline. Sternotomy wires are in place. Heart and vasculature are normal. No measurable pl eural effusion and no pneumothorax. No acute bony abnormality seen. No acute aortic findings suspecte d. IMPRESSION: No acute cardiopulmonary process. No significant change from comparison study.
[2022-07-17 08:11] LABS: Absolute Lymphocytes (CBC) 1.5 K/uL (0.7-4.9); Hematocrit 42.9 % (39.6-49.0); Lymphocytes % 23.6 % (15.3-44.8); MPV 6.7 fL (7.6-11.3); RBC Red Blood Cell Count 4.76 M/uL (4.33-5.43)
[2022-07-17 08:37] LABS: Potassium 4.9 mmol/L (3.5-5.1); Troponin High Sensitivity 11.6 pg/mL (<58.9)
--- NOTE | 2022-07-17 08:46 | RAD REPORT ---
EXAM DESCRIPTION: CT - Head Brain Wo Cont - 07/17/2022 8:34 am CLINICAL HISTORY: Neuro deficit, acute, stroke suspected COMPARISON: Head Brain Wo Cont dated 10/07/2019 TECHNIQUE: Axial 5 mm thick images of the head were obtained without IV contrast. All CT scans are performed using dose optimization technique as appropriate and may include automated exposure control or mA/KV adjustment according to patient size. FINDINGS: No intracranial hemorrhage, mass, edema or shift of mid-line structures. No acute infarcti on changes seen. No cortical edema or sulcal effacement. Moderate severity for age atrophy is present . Ventricles are in proportion to the volume loss. Scattered chronic ischemic changes evident in the cerebral white matter. Focal area of decreased attenuation in the anterior inferior aspect of the lef t temporal lobe has not changed. This is likely an old ischemic site. Physiologic and arterial calcif ications are present. Mastoid air cells and visualized portions of the paranasal sinuses are clear. No acute bony findings. IMPRESSION: No acute intracranial finding identifiable. Patient has moderate severity for age atrophy similar to the 2019 study. Scattered chronic ischemic c hanges are also stable.
--- NOTE | 2022-07-17 08:53 | ER ---
Nurse's Notes [facility] Name: Oh Roberts Age: 61 yrs Sex: Male : 1960 Arrival Date: 07/17/2022 Time: 06:16 Bed 7 Private MD: Diagnosis: Cerebral infarction, unspecified;Weakness;Paresthesia of skin Presentation: 07/17 06:35 Chief complaint: Patient states: I feel numbness and tingle in my left arm and left leg aa9 since yesterday, more on my arm. I feel really weak this morning. Coronavirus screen: Vaccine status: Patient reports receiving the 2nd dose of the covid vaccine. Ebola Screen: No symptoms or risks identified at this time. Initial Sepsis Screen: Does the patient meet any 2 criteria? No. Patient's initial sepsis screen is negative. Does the patient have a suspected source of infection? No. Patient's initial sepsis screen is negative. Risk Assessment: Do you want to hurt yourself or someone else? Patient reports no desire to harm self or others. Onset of symptoms was July 17, 2022. 06:35 Method Of Arrival: Ambulatory aa9 06:35 Acuity: LUIS M 3 aa9 Triage Assessment: 06:39 General: Appears uncomfortable, Behavior is cooperative, anxious. Pain: Denies pain. aa9 Neuro: Level of Consciousness is awake, alert, obeys commands, Oriented to person, place, time, situation, [employer] Developer are equal bilaterally Speech is normal, Facial symmetry appears normal. Respiratory: Airway is patent Respiratory effort is even, unlabored. Historical: - Allergies: 06:37 No Known Allergies; aa9 - Home Meds: 06:37 lisinopril-hydrochlorothiazide 20-12.5 mg Oral tab 1 tab once daily [Active]; aa9 13:51 aspirin 81 mg oral cap [Active]; metformin 500 mg Oral tab 1 tab 2 times per day tw2 [Active]; Prilosec 40 mg Oral cpDR 1 cap once daily [Active]; - PMHx: 06:37 Hypertension; stroke 2003; aa9 13:51 aortic aneurism \T\ repair; tw2 - PSHx: 13:51 aoritic aneurism \T\ repair; Left ankle; tw2 - Immunization history:: Client reports receiving the 2nd dose of the Covid vaccine. - Social history:: Smoking status: Patient reports use of chewing tobacco. - Family history:: not pertinent. - Hospitalizations: : No recent hospitalization is reported. Screenin:39 Abuse screen: Denies threats or abuse. Denies injuries from another. Nutritional aa9 screening: No deficits noted. Tuberculosis screening: No symptoms or risk factors identified. 07:25 Fall Risk None identified. tw2 Assessment: 07:25 Reassessment: Patient appears in no apparent distress at this time. No changes from tw2 previously documented assessment. Patient and/or family updated on plan of care and expected duration. Pain level reassessed. Patient is alert, oriented x 3, equal unlabored respirations, skin warm/dry/pink. 09:10 Reassessment: Patient appears in no apparent distress at this time. No changes from tw2 previously documented assessment. Patient and/or family updated on plan of care and expected duration. Pain level reassessed. Patient is alert, oriented x 3, equal unlabored respirations, skin warm/dry/pink. 10:00 Reassessment: Patient appears in no apparent distress at this time. No changes from tw2 previously documented assessment. Patient and/or family updated on plan of care and expected duration. Pain level reassessed. Patient is alert, oriented x 3, equal unlabored respirations, skin warm/dry/pink. 11:00 Reassessment: Patient appears in no apparent distress at this time. No changes from tw2 previously documented assessment. Patient and/or family updated on plan of care and expected duration. Pain level reassessed. Patient is alert, oriented x 3, equal unlabored respirations, skin warm/dry/pink. 11:45 Reassessment: Patient appears in no apparent distress at this time. No changes from tw2 previously documented assessment. Patient and/or family updated on plan of care and expected duration. Pain level reassessed. Patient is alert, oriented x 3, equal unlabored respirations, skin warm/dry/pink. 12:54 Reassessment: Patient appears in no apparent distress at this time. No changes from tw2 previously documented assessment. Patient and/or family updated on plan of care and expected duration. Pain level reassessed. Patient is alert, oriented x 3, equal unlabored respirations, skin warm/dry/pink. Vital Signs: 06:35 BP 154 / 84; Pulse 80; Resp 18 S; Temp 98.7(O); Pulse Ox 99% on R/A; Weight 81.65 kg aa9 (M); Height 5 ft. 10 in. (177.80 cm); Pain 0/10; 07:25 BP 156 / 84; Pulse 75; Resp 14; Pulse Ox 98% on R/A; tw2 09:10 BP 151 / 93; Pulse 71; Resp 16; Pulse Ox 98% on R/A; tw2 10:00 BP 161 / 80; Pulse 71; Resp 16; Pulse Ox 100% on R/A; tw2 11:00 BP 151 / 79; Pulse 71; Resp 15; Pulse Ox 99% on R/A; tw2 11:45 BP 143 / 76; Pulse 69; Resp 14; Pulse Ox 99% on R/A; tw2 12:53 BP 157 / 85; Pulse 72; Resp 16; Pulse Ox 98% on R/A; tw2 06:35 Body Mass Index 25.83 (81.65 kg, 177.80 cm) aa9 NIH Stroke Scale Scores: 08:53 NIHSS Score: 1 manager furniture Course: 06:16 Patient arrived in ED. ja2 06:37 Triage completed. aa9 06:39 Arm band placed on. aa9 06:40 Patient has correct armband on for positive identification. Call light in reach. aa9 06:43 Cornell Howe MD is Attending Physician. kdr 07:08 Marilee Gonzalez RN is Primary Nurse. tw2 07:19 Inserted saline lock: 20 gauge in right antecubital area, using aseptic technique. tw2 Blood collected. 07:24 Missed attempt(s): 20 gauge in left antecubital area. Bleeding controlled, band aid tw2 applied, catheter tip intact. 07:40 XRAY Chest (1 view) In Process Unspecified. EDMS 08:04 Attending Physician role handed off by Cornell Howe MD rn 08:04 Josiah Fried MD is Attending Physician. rn 08:36 CT Head Brain wo Cont In Process Unspecified. EDMS 08:52 Babatunde Newberry MD is Hospitalizing Provider. rn 09:42 SARS RAPID Sent. mb8 13:33 No provider procedures requiring assistance completed. Patient admitted, IV remains in tw2 place. 13:36 Prince Miguel MD is Hospitalizing Provider. rn Administered Medications: 09:06 Drug: PlaVIX (clopidogrel) 75 mg Route: PO; tw2 10:01 Follow up: Response: No adverse reaction tw2 09:06 Drug: foLIC Acid 1 mg Route: IVPB; Site: right antecubital; tw2 09:06 Follow up: Response: No adverse reaction; IV Status: Completed infusion; IV Intake: tw2 0.2ml Medication: 07:25 VIS not applicable for this client. tw2 Intake: 09:06 IV: 0ml; Total: 0ml. tw2 Outcome: 08:53 Decision to Hospitalize by Provider. rn 13:33 Admitted to ER Hold. Please see [facility] for further documentation. tw2 13:33 Condition: stable 13:33 Instructed on the need for admit. 18:33 Patient left the ED. tw2 NIH Stroke Scale - NIH Stroke Score Date: 07/17/2022 Time: :53 Total Score = 1 1a. Level of Consciousness (LOC) - 0(Alert) 1b. Level of Consciousness (LOC) (Month \T\ Age) - 0(Both) 1c. LOC Commands (Open \T\ Closes Eyes/Instructional Technology Facilitator) - 0(Both) 2. Best Gaze (Lateral Gaze Paresis) - 0(Normal) 3. Visual Field Loss - 0(No visual loss) 4. Facial Palsy - 0(Normal) 5a. Left Arm: Motor (10-second hold) - 0(No drift) 5b. Right Arm: Motor (10-second hold) - 0(No drift) 6a. Left Leg: Motor (5-second hold - always test supine) - 0(No drift) 6b. Right Leg: Motor (5-second hold - always test supine) - 0(No drift) 7. Limb Ataxia (finger/nose \T\ heel/ortiz - test with eyes open) - 0(Absent) 8. Sensory Loss (pinprick arms/legs/face) - 1(Mild to moderate loss) 9. Best Language: Aphasia (description/naming/reading) - 0(No aphasia) 10. Dysarthria (speech clarity - read or repeat words) - 0(Normal) 11. Extinction and Inattention (visual/tactile/auditory/spatial/personal) - 0(No abnormality) Initials: rn Signatures: Dispatcher [employer] EDHI Rittger, Cornell, Josiah Fairchild MD, MD MD rn Wise, Tara RN RN tw2 Rosemarie Osei [facility] [place] RN RN aa9 Kaveh Gilmore RN RN mb8 Corrections: (The following items were deleted from the chart) 06:38 06:37 PSHx: stroke 2003; aa9 aa9
--- NOTE | 2022-07-17 08:54 | EDPHYS ---
Physician Documentation [facility] Name: Oh Roberts Age: 61 yrs Sex: Male : 1960 Arrival Date: 07/17/2022 Time: 06:16 Bed 7 Private MD: ED Physician Josiah Fried HPI: 07/17 08:12 This 61 yrs old Male presents to ER via Ambulatory with complaints of Numbness Of Arm, rn weakness. 08:12 The patient presents to the emergency department with weakness of the left lower rn extremity, paresthesias of the left lower extremity, left upper extremity. Onset: The symptoms/episode began/occurred yesterday. Associated signs and symptoms: Pertinent positives: paresthesias, weakness, Pertinent negatives: fever, headache, neck stiffness, seizure. Severity of symptoms: At their worst the symptoms were mild in the emergency department the symptoms are worse. The patient has experienced a previous episode. The patient has not recently seen a physician. Pt reports began with left arm and leg tingling yesterday, thought would get better, woke up this AM feeling worse, now has left leg weakness and difficulty walking. Takes aspirin for previous CVA. Has had similar symptoms on right side in past, diagnosed with CVA. 2 years ago had TIA. No trauma. Tried to go to work today and couldn't. . Historical: - Allergies: 06:37 No Known Allergies; aa9 - Home Meds: 06:37 lisinopril-hydrochlorothiazide 20-12.5 mg Oral tab 1 tab once daily [Active]; aa9 13:51 aspirin 81 mg oral cap [Active]; metformin 500 mg Oral tab 1 tab 2 times per day tw2 [Active]; Prilosec 40 mg Oral cpDR 1 cap once daily [Active]; - PMHx: 06:37 Hypertension; stroke 2003; aa9 13:51 aortic aneurism \T\ repair; tw2 - PSHx: 13:51 aoritic aneurism \T\ repair; Left ankle; tw2 - Immunization history:: Client reports receiving the 2nd dose of the Covid vaccine. - Social history:: Smoking status: Patient reports use of chewing tobacco. - Family history:: not pertinent. - Hospitalizations: : No recent hospitalization is reported. ROS: 08:12 Constitutional: Negative for fever, chills, and weight loss, Eyes: Negative for injury, rn pain, redness, and discharge, Neck: Negative for injury, pain, and swelling, Cardiovascular: Negative for chest pain, palpitations, and edema, Respiratory: Negative for shortness of breath, cough, wheezing, and pleuritic chest pain, Abdomen/GI: Negative for abdominal pain, nausea, vomiting, diarrhea, and constipation, Back: Negative for injury and pain, MS/Extremity: Negative for injury and deformity, Skin: Negative for injury, rash, and discoloration, Neuro: Negative for headache, and seizure Exam: 08:12 Constitutional: This is a well developed, well nourished patient who is awake, alert, rn and in no acute distress. Head/Face: Normocephalic, atraumatic. Eyes: Periorbital areas with no swelling, redness, or edema. Cardiovascular: Regular rate and rhythm. No pulse deficits. Respiratory: No increased work of breathing, no retractions or nasal flaring. Abdomen/GI: Soft, non-tender Skin: Warm, dry MS/ Extremity: Pulses equal, no cyanosis. Neuro: Awake and alert, GCS 15, oriented to person, place, time, and situation. Cranial nerves II-XII grossly intact. No noticeable drift on exam in either extremity, but abnormal gait on left leg Vital Signs: 06:35 BP 154 / 84; Pulse 80; Resp 18 S; Temp 98.7(O); Pulse Ox 99% on R/A; Weight 81.65 kg aa9 (M); Height 5 ft. 10 in. (177.80 cm); Pain 0/10; 07:25 BP 156 / 84; Pulse 75; Resp 14; Pulse Ox 98% on R/A; tw2 09:10 BP 151 / 93; Pulse 71; Resp 16; Pulse Ox 98% on R/A; tw2 10:00 BP 161 / 80; Pulse 71; Resp 16; Pulse Ox 100% on R/A; tw2 11:00 BP 151 / 79; Pulse 71; Resp 15; Pulse Ox 99% on R/A; tw2 11:45 BP 143 / 76; Pulse 69; Resp 14; Pulse Ox 99% on R/A; tw2 12:53 BP 157 / 85; Pulse 72; Resp 16; Pulse Ox 98% on R/A; tw2 06:35 Body Mass Index 25.83 (81.65 kg, 177.80 cm) aa9 NIH Stroke Scale Scores: 08:53 NIHSS Score: 1 rn MDM: 06:57 Patient medically screened. [facility] 08:52 Data reviewed: vital signs, nurses notes, lab test result(s), EKG, radiologic studies, rn CT scan, and as a result, I will admit patient. Counseling: I had a detailed discussion with the patient and/or guardian regarding: the historical points, exam findings, and any diagnostic results supporting the discharge/admit diagnosis, lab results, radiology results, the need for further work-up and treatment in the hospital. Response to treatment: There is no appreciated change of the patient's symptoms at this time, and as a result, I will admit patient. Admission orders: after a detailed discussion of the patient's condition and case, the admit orders are written by me. 07/17 07:01 Order name: Basic Metabolic Panel; Complete Time: 08:40 [facility] 07/17 07:01 Order name: CBC with Diff; Complete Time: 08:19 [facility] 07/17 07:01 Order name: NT PRO-BNP; Complete Time: 08:40 [facility] 07/17 07:01 Order name: Troponin HS; Complete Time: 08:40 [facility] 07/17 09:31 Order name: SARS RAPID; Complete Time: 10:05 07/17 14:01 Order name: Lipid Profile [facility] 07/17 07:01 Order name: XRAY Chest (1 view); Complete Time: 08:19 [facility] 07/17 07:04 Order name: EKG Electrocardiogram [facility] 07/17 08:20 Order name: CT Head Brain wo Cont; Complete Time: 08:49 07/17 14:12 Order name: LDL, Direct EDND 07/17 16:49 Order name: MRI [facility] 07/17 07:01 Order name: Cardiac monitoring; Complete Time: 07:24 [facility] 07/17 07:01 Order name: EKG - Nurse/Tech; Complete Time: 07:04 [facility] 07/17 07:01 Order name: IV Saline Lock; Complete Time: 07:24 [facility] 07/17 07:01 Order name: Labs collected and sent; Complete Time: 07:24 [facility] 07/17 07:01 Order name: O2 Per Protocol; Complete Time: 07:09 [facility] 07/17 07:01 Order name: O2 Sat Monitoring; Complete Time: 07:09 kdr 07/17 07:40 Order name: Labs - recollect needed: recollect green and purple; Complete Time: 08:05 bd Administered Medications: 09:06 Drug: PlaVIX (clopidogrel) 75 mg Route: PO; tw2 10:01 Follow up: Response: No adverse reaction tw2 09:06 Drug: foLIC Acid 1 mg Route: IVPB; Site: right antecubital; tw2 09:06 Follow up: Response: No adverse reaction; IV Status: Completed infusion; IV Intake: tw2 0.2ml Disposition Summary: 07/17/22 08:53 Hospitalization Ordered Hospitalization Status: Inpatient Admission rn Condition: Stable rn Problem: new rn Symptoms: are unchanged rn Bed/Room Type: Standard rn Provider: Prince Myriam(07/17/22 13:36) rn Location: Telemetry/MedSurg (Inpatient)(07/17/22 16:46) bd Room Assignment: [facility](07/17/22 16:46) bd Diagnosis - Cerebral infarction, unspecified rn - Weakness rn - Paresthesia of skin rn Forms: - Medication Reconciliation Form rn - SBAR form rn NIH Stroke Scale - NIH Stroke Score Date: 07/17/2022 Time: 08:53 Total Score = 1 1a. Level of Consciousness (LOC) - 0(Alert) 1b. Level of Consciousness (LOC) (Month \T\ Age) - 0(Both) 1c. LOC Commands (Open \T\ Closes Eyes/Cleaning And Maintenance Worker) - 0(Both) 2. Best Gaze (Lateral Gaze Paresis) - 0(Normal) 3. Visual Field Loss - 0(No visual loss) 4. Facial Palsy - 0(Normal) 5a. Left Arm: Motor (10-second hold) - 0(No drift) 5b. Right Arm: Motor (10-second hold) - 0(No drift) 6a. Left Leg: Motor (5-second hold - always test supine) - 0(No drift) 6b. Right Leg: Motor (5-second hold - always test supine) - 0(No drift) 7. Limb Ataxia (finger/nose \T\ heel/ortiz - test with eyes open) - 0(Absent) 8. Sensory Loss (pinprick arms/legs/face) - 1(Mild to moderate loss) 9. Best Language: Aphasia (description/naming/reading) - 0(No aphasia) 10. Dysarthria (speech clarity - read or repeat words) - 0(Normal) 11. Extinction and Inattention (visual/tactile/auditory/spatial/personal) - 0(No abnormality) Initials: rn Signatures: Dispatcher [employer] EDMS Phyllis Godinez Kevin, MD MD kdr Nieto, Roman, MD MD rn Marilee Gonzalez RN RN tw2 Belle Woody RN RN aa9 Corrections: (The following items were deleted from the chart) 06:38 06:37 PSHx: stroke 2003; aa9 aa9 13:00 08:53 Telemetry/MedSurg (Inpatient) corrine bd 13:00 08:53 corrine bd 13:36 08:53 Babatunde Newberry rn rn 16:46 13:00 [facility] ER HOLD bd bd 16:46 13:00 ERHOLD- bd bd
[2022-07-17] MEDS ORDERED: CLOPIDOGREL 75 MG TABLET ONE (09:09)
[2022-07-17] MEDS ORDERED: FOLIC ACID 5 MG/ML VIAL ONE (09:10)
[2022-07-17 10:04] LABS: SARS-CoV-2 Antigen Rapid Res Negative (Negative)
--- NOTE | 2022-07-17 10:11 | P.HP ---
Certification for Inpatient Patient admitted to: Observation With expected LOS: <2 Midnights Practitioner: I am a practitioner with admitting privileges, knowledge of patient current condition, hospital course, and medical plan of care. Services: Services provided to patient in accordance with Admission requirements found in Title 42 Section 412.3 of the Code of Federal Regulations Patient History Date of Service: 07/17/22 Reason for admission: Left-sided weakness, TIA/CVA History of Present Illness: Patient is a 61-year-old male with a known past medical history of hypertension, uri-[id number] diabetes mellitus and 2 strokes in the past. He presented to the ER complaining of left-sided weakness that slowly progressed to left lower extremity weakness. The onset of his symptoms was 24 hours ago. Patient tried to drive to work this morning but could not as he became very dizzy as well. He presented to the ER alert and oriented and hemodynamically stable. Initial CT of the brain showed no evidence of acute stroke. During my evaluation, patient was still experiencing notable weakness on his left side. His home regimen consists of aspirin. He is unclear whether he has been on clopidogrel as well. Allergies No Known Allergies Allergy (Unverified 10/06/19 16:42) Home Medications: Lisinopril/Hydrochlorothiazide [Lisinopril-Hctz 20-12.5 mg Tab] 1 each PO DAILY 10/06/19 Metformin HCl [Glucophage*] 500 mg PO BIDWM 10/06/19 Aspirin [Aspirin EC 81 MG] 81 mg PO DAILY #30 tablet. 10/08/19 Omeprazole Magnesium [Prilosec Otc] 20 mg PO DAILY 10/20/20 - Past Medical/Surgical History Diabetic: Yes -: CVA 2004 -: Aortic anerusim and repair -: HTN -: ETOH 4-5 beers daily -: DM 2 -: Aneurism repair -: left ankle sx - Social History Alcohol use: Yes CD- Drugs: No Caffeine use: Yes Physical Examination - Physical Exam General: In no apparent distress, Cooperative HEENT: Atraumatic, Normocephalic Respiratory: Clear to auscultation bilaterally, Normal air movement Cardiovascular: No edema, Normal pulses, Regular rate/rhythm, Normal S1 S2 Musculoskeletal: No clubbing, No swelling, No contractures, No erythema Neurological: Normal speech, Other (Left-sided hemiparesis), Abnormal strength - Studies Laboratory Data (last 24 hrs) 07/17/22 08:04: WBC 6.40, Hgb 15.5, Hct 42.9, Plt Count 221 07/17/22 08:04: Sodium 133 L, Potassium 4.9, BUN 18, Creatinine 1.45 H, Glucose 219 H Assessment and Plan - Problems (Diagnosis) (1) TIA (transient ischemic attack) Current Visit: Yes Status: Acute (2) Aortic arch aneurysm Current Visit: No Status: Acute (3) DM2 (diabetes mellitus, type 2) Current Visit: No Status: Acute (4) HTN (hypertension) Current Visit: No Status: Acute - Plan Assessment Patient is a 61-year-old male with history of multiple strokes who presents with left-sided numbness to progress into left-sided hemiparesis. Initial CT head did not show acute intracranial abnormalities. Patient is otherwise hemodynamically stable. His EKG shows normal sinus rhythm. TIA/CVA Hypertension Hyperlipidemia Type 2 diabetes mellitus Plan: Admit under observation with telemetry Will obtain a formal MRI of brain Patient should probably be on dual antiplatelet therapy and high intensity statin He will also benefit from a neurology consult Follow-up lipid panel, 2D echo and hemoglobin A1c PT/OT ordered - Advance Directives Does patient have a Living Will: No Does patient have a Durable POA for Healthcare: No
[2022-07-17] MEDS: FOLIC ACID 1 MG TABLET PO SCH (12:58)
[2022-07-17 13:41] VITALS: BMI 25.8
[2022-07-17 13:57] LABS: HDL Cholesterol 32 mg/dL (40-60)
[2022-07-17 14:12] LABS: LDL, Direct 123 mg/dL (100-129)
--- NOTE | 2022-07-17 16:48 | RAD REPORT ---
EXAM DESCRIPTION: MRI - Brain Wo Cont - 07/17/2022 3:52 pm CLINICAL HISTORY: R/O CVA COMPARISON: <Comparisons> TECHNIQUE: Sagittal T1-weighted images were obtained along with PD/heavily T2-weighted and T2-FLAIR images. Axial DWI and ADC mapping sequences were also obtained along with coronal heavily T2-weighted images were obtained. FINDINGS: No intracranial hemorrhage, mass or acute infarction. There is no edema or shift of midlin e structures. No extra-axial fluid collections. Signal voids are seen as a normal finding in the acacia r intracranial vessels. Mild to moderate chronic small vessel ischemic changes. 15 mm by 12 mm T2/FLA IR hyperintense signal focus within the left temporal lobe is unchanged since 2019. Cerebral atrophy. Mastoid air cells and paranasal sinuses are clear. IMPRESSION: No acute intracranial abnormality. Specifically, no evidence of acute infarct. T2/FLAIR hyperintense focus in the left temporal lobe is unchanged since 2019.
--- NOTE | 2022-07-17 17:07 | EKG ---
Test Date: 2022-07-17 Test Time: 06:36:33 Solar Sales Specialist: ANGEL MEASUREMENT RESULTS: Intervals: Rate: 79 [place]: 206 QRSD: 88 QT: 382 QTc: 438 [place]: P: 48 [place]: 206 QRS: 35 T: 45 INTERPRETIVE STATEMENTS: Normal sinus rhythm Normal ECG Compared to ECG 10/06/2019 13:15:07 Sinus tachycardia no longer present Atrial premature complex(es) no longer present Electronically Signed On 07-17-22 17:06:31 CDT by Frederic Martínez
[2022-07-17] MEDS ORDERED: ATORVASTATIN 40 MG TAB PO SCH (21:00)
[2022-07-17 23:30] VITALS: O2SAT 99
[2022-07-18 05:00] LABS: Specific Gravity 1.008 (1.005-1.030); Urine Bilirubin NEGATIVE (Negative); Urine Blood Trace (Negative); Urine Clarity Clear (Clear); Urine Color Light-Yellow (Yellow); Urine Glucose 4+ (Negative); Urine Mucus Slight /HPF (None Seen); Urine Protein NEGATIVE (Negative); Urine RBC <5 /HPF (None Seen); Urine Urobilinogen Normal (Normal); Urine pH 5.5 (5.0-7.0)
--- NOTE | 2022-07-18 06:38 | ECHO ---
HEIGHT: 5 ft 10 in WEIGHT: 180 lb 0.119 oz DATE OF STUDY: 07/17/[address]: Prince Aggie Miguel MD 2-DIMENSIONAL: YES M.MODE: YES DOPPLER: YES COLOR FLOW: YES TDS: NO PORTABLE: YES DEFINITY: NO BUBBLE STUDY: NO DIAGNOSIS: CEREBRAL VASCULAR ACCIDENT CARDIAC HISTORY: CATHERIZATION: NO SURGERY: YES PROSTHETIC VALVE: PACEMAKER: NO MEASUREMENTS (cm) DIASTOLIC (NORMALS) SYSTOLIC (NORMALS) IVSd 1.3 (0.6-1.2) LA Diam 2.6 (1.9-4.0) LVEF 69% LVIDd 4.6 (3.5-5.7) LVIDs 2.8 (2.0-3.5) %FS 39% LVPWd 1.4 (0.6-1.2) Ao Diam 3.0 (2.0-3.7) 2 DIMENSIONAL ASSESSMENT: RIGHT ATRIUM: NORMAL LEFT ATRIUM: NORMAL RIGHT VENTRICLE: NORMAL LEFT VENTRICLE: NORMAL TRICUSPID VALVE: NORMAL MITRAL VALVE: MITRAL ANNULAR CALCIFICATION PULMONIC VALVE: NORMAL AORTIC VALVE: NORMAL PERICARDIAL EFFUSION: NONE AORTIC ROOT: NORMAL LEFT VENTRICULAR WALL MOTION: NORMAL. DOPPLER/COLOR FLOW: NORMAL. COMMENTS: MITRAL ANNULAR CALCIFICATION. NO VEGETATION OR THROMBUS. NORMAL LEFT VENTRICULAR SIZE AND FUNCTION. NO WALL MOTION ABNORMALITY. TECHNOLOGIST: LEONIDES CARL
[2022-07-18 08:32] LABS: Potassium 4.4 mmol/L (3.5-5.1)
[2022-07-18] MEDS: FOLIC ACID 1 MG TABLET PO SCH (08:32)
--- NOTE | 2022-07-18 08:47 | RAD REPORT ---
EXAM DESCRIPTION: MRI - MRA Neck W/Wo Cont - 07/18/2022 8:20 am CLINICAL HISTORY: Left-sided weakness/CVA COMPARISON: None. TECHNIQUE: Magnetic resonance angiogram of the neck was performed. 19 cc MultiHance was administered intravenously. 3D MIPS reconstruction performed FINDINGS: Mild plaque within the common carotid, internal carotid arteries bilaterally and left exte rnal carotid artery. Moderate plaque proximal right external carotid artery. The vertebral arteries are codominant. The left vertebral artery terminates into the PICA No dissection seen IMPRESSION: Mild stenosis common carotid internal carotid arteries bilaterally. NASCET criteria used. Mild 0-49% stenosis Moderate 50-69% stenosis Severe 70-99% stenosis
[2022-07-18] MEDS ORDERED: ASPIRIN EC 81 MG TAB PO SCH (09:00)
[2022-07-18] MEDS ORDERED: lisinopriL 20 MG TAB PO SCH (09:00)
[2022-07-18] MEDS ORDERED: levETIRAcetam 500 MG TAB PO SCH (09:00)
[2022-07-18] MEDS ORDERED: HOME MED 1 EA UNK (Lisinopril/Hydrochlorothiazide [Lisinopril-Hctz 20-12.5 Mg Tab] Tablet) PO SCH (09:00)
[2022-07-18] MEDS ORDERED: HOME MED 1 EA UNK (Omeprazole Magnesium [Prilosec Otc] 20 MG Tablet.Dr) PO SCH (09:00)
[2022-07-18] MEDS ORDERED: PANTOPRAZOLE 40MG TABLET PO SCH (09:00)
[2022-07-18] MEDS ORDERED: hydroCHLOROthiazide 12.5 MG CAP PO SCH (09:00)
--- NOTE | 2022-07-18 09:59 | P.DS ---
Admission Date: 07/17/22 Discharge Date: 07/18/22 Disposition: ROUTINE DISCHARGE Discharge Condition: GOOD Reason for Admission: Left-sided weakness, TIA/CVA - Problems (1) TIA (transient ischemic attack) Current Visit: Yes Status: Acute (2) Aortic arch aneurysm Current Visit: No Status: Acute (3) DM2 (diabetes mellitus, type 2) Current Visit: No Status: Acute (4) HTN (hypertension) Current Visit: No Status: Acute Brief History of Present Illness: Patient is a 61-year-old male with a known past medical history of hypertension, uho-pdlmvuj-pmboqihru diabetes mellitus and 2 strokes in the past. He presented to the ER complaining of left-sided weakness that slowly progressed to left lower extremity weakness. The onset of his symptoms was 24 hours ago. Patient tried to drive to work this morning but could not as he became very dizzy as well. He presented to the ER alert and oriented and hemodynamically stable. Initial CT of the brain showed no evidence of acute stroke. During my evaluation, patient was still experiencing notable weakness on his left side. His home regimen consists of aspirin. He is unclear whether he has been on clopidogrel as well. Hospital Course: Patient is a 61-year-old male with a past medical history of stroke with mild right-sided residual deficit. He presented this time with the left- sided weakness. No tPA was given. Patient's MRI showed no evidence of stroke but revealed a 1.5 cm hyperdense focus in the left temporal lobe. This is unchanged from 2019. He did well on medical therapy. Patient attributes his symptoms to ongoing stress in his personal life. Nevertheless, neurology thought that it would be useful to keep him on seizure prophylaxis given the location of this lesion. He will need an outpatient EEG with Dr. Rodríguez for further evaluation. Otherwise, patient can be discharged right now. Scripts were called to his pharmacy. Vital Signs/Physical Exam: Temp Pulse Resp BP Pulse Ox 97.3 F 76 18 157/85 H 100 07/18/22 08:00 07/18/22 08:00 07/18/22 08:00 07/18/22 08:00 07/18/22 08:00 General: Alert, In no apparent distress, Cooperative HEENT: Atraumatic, Normocephalic Respiratory: Clear to auscultation bilaterally, Normal air movement Cardiovascular: No edema, Normal pulses, Regular rate/rhythm, Normal S1 S2 Musculoskeletal: No clubbing, No swelling Neurological: Abnormal strength Laboratory Data at Discharge: WBC 6.40 K/uL (4.3-10.9) 07/17/22 08:04 Hgb 15.5 g/dL (13.6-17.9) 07/17/22 08:04 Hct 42.9 % (39.6-49.0) 07/17/22 08:04 Plt Count 221 K/uL (152-406) 07/17/22 08:04 Sodium 135 mmol/L (136-145) L 07/18/22 08:08 Potassium 4.4 mmol/L (3.5-5.1) 07/18/22 08:08 BUN 15 mg/dL (7-18) 07/18/22 08:08 Creatinine 1.18 mg/dL (0.55-1.3) 07/18/22 08:08 Glucose 204 mg/dL (74-106) H 07/18/22 08:08 Triglycerides 646 mg/dL (<150) H 07/17/22 08:04 Cholesterol 214 mg/dL (<200) H 07/17/22 08:04 LDL Cholesterol Direct 123 mg/dL (100-129) 07/17/22 08:04 HDL Cholesterol 32 mg/dL (40-60) L 07/17/22 08:04 Cholesterol/HDL Ratio 6.69 07/17/22 08:04 Home Medications: Lisinopril/Hydrochlorothiazide [Lisinopril-Hctz 20-12.5 mg Tab] 1 each PO DAILY 10/06/19 Metformin HCl [Glucophage*] 500 mg PO BIDWM 10/06/19 Omeprazole Magnesium [Prilosec Otc] 20 mg PO DAILY 10/20/20 Aspirin [Aspirin EC 81 MG] 81 mg PO DAILY #30 tablet. 07/18/22 Atorvastatin Calcium [Lipitor] 40 mg PO BEDTIME #30 tab 07/18/22 Clopidogrel Bisulfate [Plavix] 75 mg PO DAILY #30 07/18/22 Folic Acid 1 mg PO DAILY #30 07/18/22 levETIRAcetam [Keppra*] 500 mg PO BID #60 tab 07/18/22 New Medications: Aspirin [Aspirin EC 81 MG] 81 mg PO DAILY #30 tablet. Folic Acid 1 mg PO DAILY #30 levETIRAcetam [Keppra*] 500 mg PO BID #60 tab Atorvastatin Calcium [Lipitor] 40 mg PO BEDTIME #30 tab Clopidogrel Bisulfate [Plavix] 75 mg PO DAILY #30 Followup: Jeff Gil MD [Primary Care Provider] -
[2022-07-18 11:52] VITALS: BP 142/77; TEMP 96.9
== END 2022-07-18 12:49 | disposition home or self-care (01) ==
LOC: ER 06:12 → ERHOLD 09:44 → 4TH 17:54
PROVIDERS: ADMIT Internal Medicine; ATTEND Internal Medicine
DX: G45.9 Transient cerebral ischemic attack, unspecified (principal); I71.2 Thoracic aortic aneurysm, without rupture; I10 Essential (primary) hypertension; E11.9 Type 2 diabetes mellitus without complications; E78.5 Hyperlipidemia, unspecified; Z86.73 Personal history of transient ischemic attack (TIA), and cerebral infarction without residual deficits; F17.220 Nicotine dependence, chewing tobacco, uncomplicated; Z79.82 Long term (current) use of aspirin; Z79.84 Long term (current) use of oral hypoglycemic drugs
CPT/HCPCS: 93005; 93306; 85025; 81001; 80048 ×2; 36415 ×2; 83721; 80061; 83036; 84484; 83880; 70450; 71045; 70551; 70549; 96374; 99285; 87811; G0378 ×3

== ENCOUNTER 2023-05-12 05:35 | Emergency (ER) | payer OTHER ==
--- OUTSIDE RECORDS SUMMARY | 2023-05-12 05:40 | XMS REPORT | Continuity of Care Document ---
:1960 Author Organization [facility] t Address [address] [place] [address] Care Team Providers Name Role Phone ESTELLA BENITEZ Primary Care Physician Unavailable Mihaela Mac RN Attending Clinician PARAM DENT Attending Clinician Unavailable Mihir Sharma MD Attending Clinician Param Dent MD Attending Clinician MALKA MCGOVERN Attending Clinician Unavailable Malka Mcgovern DO Attending Clinician PARAM DENT Admitting Clinician Unavailable Param Dent MD Admitting Clinician MALKA MCGOVERN Admitting Clinician Unavailable Payers Payer Name Policy Type Policy Number Effective Date Expiration Date S ource NINETY DEGREES [id number] 2021 2022 BENEFIT OON 00:00:00 00:00:00 Problems Condition Condition Condition Status Onset Resolution Last Treating Co mments Source Name Details Category Date Date Treatment Clinician Date Stroke-lik Stroke-lik Disease Active U nivers e symptoms e symptoms 9-28 it y of 00:00: [place] 00 Medical Branch Type 2 Type 2 Disease Active Univers diabetes diabetes 6-07 ity of mellitus mellitus 00:00: [place] without without 00 Medical complicati complicati Br anch on, on, without without long-term long-term current current use of use of insulin insulin Essential Essential Disease Active Uni vers hypertensi hypertensi 6-05 it y of on on 00:00: [address] Branch Allergies, Adverse Reactions, Alerts Allergy Allergy Status Severity Reaction(s) Onset Inactive Treating Comm ents Source Name Type Date Date Clinician NO KNOWN Drug Active Univers ALLERGIE Class ity of S [facility] Social History Social Habit Start Date Stop Date Quantity Comments Source History SDOH University o f Alcohol Frequency [place] M edical Branch History SDOH University o f Alcohol Std Drinks [place] [facility] [place] History [facility] University o f Alcohol Binge [place] Medic al Branch Exposure to 2022-07-21 2022-07-31 Not sure University SARS-CoV-2 (event) 00:00:00 08:37:00 [facility] Alcohol intake 2022-07-31 2022-07-31 Current drinker Unive rsity of 00:00:00 00:00:00 of alcohol [facility] (finding) Branch Cigarette 2018-04-07 2018-04-07 University of pack-years 00:00:00 00:00:00 [facility] Tobacco use and 2018-04-07 2018-04-07 User of Universit y of exposure 00:00:00 00:00:00 smokeless [facility] tobacco [place] Alcohol Comment 2018-04-07 2018-04-07 4-5 nightly Universi ty of 00:00:00 00:00:00 [facility] Cigarettes smoked 2018-04-07 2018-04-07 Univers ity of current (pack per 00:00:00 00:00:00 [facility] [place] ) - Reported Branch History of tobacco 1988-04-07 Snuff User Univer sity of use 00:00:00 [facility] Sex Ass[birth year] At [birth year] Universit y of 00:00:00 00:00:00 [facility] Smoking Status Start Date Stop Date Source Ex-smoker 2018-04-07 00:00:00 2018-04-07 00:00:00 Universi ty of [facility] Medications Ordered Filled Start Stop Current Ordering Indication Dosage Frequency Signature Comments Components Source Medication Medication Date Date Medication? Clinician (SIG) Name Name oxazepam 2021-11 15mg 15 mg, Univer s (SERAX) 0-01 10-02 Oral, Q12H ity o f capsule 15 05:00: 04:59 [place] 2 [place] mg 00 :00 doses, Medical First dose Branch on 08/03/22 at 0000, Last dose on 08/03/22 at 1200, Routine clopidogreL 2021-11 Yes [id number] 75mg Take 1 Univers 75 mg 0-01 tablet by ity of tablet 00:00: mouth in [place] 00 the Medical morning. Branch clopidogreL 2021-11 Yes [id number] 75mg Take 1 Univers 75 mg 0-01 tablet by ity of tablet 00:00: mouth in [place] 00 the Medical morning. Branch metoprolol 0 Yes 25mg Take 25 mg U nivers tartrate 25 9-30 by mouth ity of mg tablet 16:20: in the [place] [address] morning Medical and 25 mg Branch in the evening. aspirin 81 0 Yes 81mg Take 81 mg U nivers mg chewable 9-30 by mouth ity of tablet 16:20: in the [place] [address] morning. Medical Branch lisinopriL- 0 Yes 1{tbl} Take 1 Un cameron hydrochloro 9-30 tablet by ity of thiazide 16:20: mouth in [place] 20-12.5 mg 13 the Medical per tablet morning. Bran h foLIC acid 0 Yes 1mg Take 1 mg Un cameron 1 mg tablet 9-30 by mouth ity of 16:20: in the [place] [address] morning. Medical Branch metoprolol 0 Yes 25mg Take 25 mg U nivers tartrate 25 9-30 by mouth ity of mg tablet 16:20: in the [place] [address] morning Medical and 25 mg Branch in the evening. aspirin 81 2021-0 Yes 81mg Take 81 mg U nivers mg chewable 9-30 by mouth ity of tablet 16:20: in the [place] [address] morning. Medical Branch lisinopriL- 0 Yes 1{tbl} Take 1 Un cameron hydrochloro 9-30 tablet by ity of thiazide 16:20: mouth in [place] 20-12.5 mg 13 the Medical per tablet morning. Bran h foLIC acid 2021-0 Yes 1mg Take 1 mg Un cameron 1 mg tablet 9-30 by mouth ity of 16:20: in the [place] [address] morning. Medical Branch omeprazole 2021-0 2022- No 20mg Take 20 mg Univers 20 mg 9-30 09-30 by mouth ity of capsule 14:23: 00:00 in the [place] 22 :00 morning. Medical Branch metFORMIN 2021- No 500mg Take 500 Un cameron 500 mg 08-02-30 mg by ity of tablet 14:23: 00:00 mouth in [place] 22 :00 the Medical morning Branch and 500 mg in the evening. Take with meals. levETIRAcet 2021- No 500mg Take 500 Univers am (KEPPRA) 08-02 mg by ity of 500 mg 14:23: 00:00 mouth in [place] tablet 22 :00 the Medical morning Branch and 500 mg in the evening. labetaloL 2021- No 20mg 20 mg, Unive rs (NORMODYNE) 08-02 Slow IV ity of injection 14:02: 16:27 Push, [place] 20 mg 00 :00 ONCE, 1 Medical dose, On [place] Fri08/02/22 at 0915, Routine lisinopriL Yes 20mg 20 mg, Unive rs (PRINIVIL,Z 08-02 Oral, ity of ESTRIL) 14:00: DAILY, [place] tablet 20 00 First dose Medi justa mg on Fri [place] 08/02/22 at 0900, Until Discontinu ed, Routine clopidogreL Yes 75mg 75 mg, Univ ers (PLAVIX) 75 08-02 Oral, ity of mg tablet 14:00: DAILY, [place] 75 mg 00 First dose Medical on Fri [place] 08/02/22 at 0900, Until Discontinu ed, Routine atorvastati Yes 80mg 80 mg, Univ ers n (LIPITOR) 08-02 Enteral, ity of tablet 80 02:00: QHS, First [place] mg 00 dose Medical (after Branch last modificati on) on [facility] 08/01/22 at 2100, Until Discontinu ed, Routine levETIRAcet 2021- No 500mg 500 mg, U nivers am (KEPPRA) 08-02 Oral, BID, i ty of tablet 500 01:00: 14:24 First dose [place] mg 00 :26 on [facility] 08/01/22 at Branch 2000, Until Discontinu ed, Routine pioglitazon Yes [id number] 15mg Take 1 Univers e 15 mg 9-30 tablet by ity of tablet 00:00: mouth in [place] 00 the Medical morning. Branch pioglitazon Yes [id number] 15mg Take 1 Univers e 15 mg 9-30 tablet by ity of tablet 00:00: mouth in [place] 00 the Medical morning. Branch atorvastati 2021- No [id number] 80mg Take 1 Univers n 80 mg 9-30 12-30 tablet ity of tablet 00:00: 05:59 through [place] 00 :00 enteral Medical tube at [place] bedtime for 90 days. metFORMIN 2021- No [id number] 1000mg Take 1 Univers 1,000 mg 9-30 12-30 tablet by ity o f tablet 00:00: 05:59 mouth in [place] 00 :00 the Medical morning Branch and 1 tablet in the evening. Take with meals. Do all this for 90 days. atorvastati 2021- No [id number] 80mg Take 1 Univers n 80 mg 9-30 12-30 tablet ity of tablet 00:00: 05:59 through [place] 00 :00 enteral Medical tube at [place] bedtime for 90 days. metFORMIN 2021- No [id number] 1000mg Take 1 Univers 1,000 mg 9-30 12-30 tablet by ity o f tablet 00:00: 05:59 mouth in [place] 00 :00 the Medical morning Branch and 1 tablet in the evening. Take with meals. Do all this for 90 days. gadoteridol 2021- No [id number] .2mL/kg 16.52 mL Univers (PROHANCE-2 08-01 (0.2 mL/kg i ty of 0 mL) 22:15: 22:15 ?82.6 kg), [place] injection 00 :00 Intravenou Medi justa 16.52 mL s, ONCE, 1 Branc h dose, On [facility] 08/01/22 at 1715, Routine aspirin Yes 81mg 81 mg, Univers chewable 08-01 Oral, ity of tablet 81 19:15: DAILY, [place] mg 00 First dose Medical on Viki [place] 08/01/22 at 1415, Until Discontinu ed, Routine thiamine Yes 100mg 100 mg, Unive rs (VITAMIN 9-29 Oral, ity of B1) tablet 14:00: DAILY, [place] 100 mg 00 First dose Medical on [facility] 08/01/22 at 0900, Until Discontinu ed, Routine foLIC acid Yes 1mg 1 mg, Univer s (FOLATE) 08-01 Oral, ity of tablet 1 mg 14:00: DAILY, [place] 00 First dose Medical on [facility] 08/01/22 at 0900, Until Discontinu ed, Routine foLIC acid No 1mg 1 mg, Unive rs (FOLATE) 08-01 Oral, ity of tablet 1 mg 14:00: 13:44 DAILY, [place] as 00 :59 First dose Medical on [facility] 08/01/22 at 0900, Until Discontinu ed, Routine atorvastati No 40mg 40 mg, Uni vers n (LIPITOR) 08-01 Enteral, ity of tablet 40 02:00: 17:13 QHS, First [place] mg 00 :21 dose on Medical [facility] 07/31/22 at 2100, Until Discontinu ed, Routine heparin Yes 5000U 5,000 Univers (porcine) 08-01 Units, ity of injection 01:00: Subcutaneo [place] 5,000 Units 00 us, Q12H, Med ical First dose Branch on Fri07/31/22 at 2000, Until Discontinu ed, Routine levETIRAcet 2021- No 500mg 500 mg, U nivers am (KEPPRA) 08-01 Oral, BID, i ty of tablet 500 01:00: 19:50 First dose [place] mg 00 :35 on Fri [facility] 07/31/22 at Branch 2000, Until Discontinu ed, Routine oxazepam Yes 15mg 15 mg, Univers (SERAX) 07-31 Oral, ity of capsule 15 21:37: Q4HPRN, [place] mg 28 Starting Medical on [facility] 07/31/22 at 1637, Until Discontinu ed, Routine, Only while awake for DBP equal to or greater than 100, HR equal to or greater than 100. sulfur 2021- No [id number] 5mL 5 mL, Univ ers hexafluorid 07-31 Intravenou i ty of e microsphr 20:15: 20:15 s, ONCE, 1 [place] (LUMASON) 00 :00 dose, On Medica l injection 5 Fri Branch mL 07/31/22 at 1515, Routine
direct support staff member approving Restricted medication : BEAR SARKARLAWRENCE Saline Yes [id number] 6mL 6 mL, Unive rs Bubble 07-31 Injection, ity of Study 20:03: SEE-INSTRU [place] 03 CTIONS, Medical Starting Branch on Fri07/31/22 at 1503, Until Discontinu ed, Routine pantoprazol Yes 40mg 40 mg, Univ ers e 07-31 Oral, ity of (PROTONIX) 19:15: DAILY, [place] EC tablet 00 First dose Medi justa 40 mg on Fri Branch 07/31/22 at 1415, Until Discontinu ed, Routine acetaminoph Yes 650mg 650 mg, Un cameron en 07-31 Oral, ity of (TYLENOL) 19:08: Q6HPRN, [place] tablet 650 01 Starting Medic al mg on Fri Branch 07/31/22 at 1408, Until Discontinu ed, Routine, Pain (scale 1-3), Pain (scale 4-6), Temp > 38.5 C, Temp > 37.5 C NaCl 0.9% 2021- No 1000mL at 100 Uni vers (NS) IV 07-31 mL/hr, ity of infusion 17:15: 13:44 Intravenou [place] 1,000 mL 00 :59 s, [facility] CONTINUOUS Branch , Starting on Fri07/31/22 at 1215, Until Fri08/02/22 at 0844, JIM aspirin 2021- No 325mg 325 mg, Unive rs tablet 325 07-31 Oral, ity of mg 16:30: 16:46 ONCE, 1 [place] 00 :00 dose, On [facility] Wed Branch 07/31/22 at 1130, STAT ondansetron 2021- No 4mg 4 mg, Slow Univers (ZOFRAN 07-31 IV Push, ity of (PF)) 16:15: 16:19 ONCE, 1 [place] injection 4 00 :00 dose, On Medi justa mg Wed Branch 07/31/22 at 1115, JIM morpHINE (4 2021- No 4mg 4 mg, Slow Univers mg/mL) 07-31 IV Push, ity of injection 4 16:15: 16:19 ONCE, 1 [place] mg 00 :00 dose, On Medical Wed Branch 07/31/22 at 1115, STAT iopamidol 2021- No [id number] 100mL 100 mL, Univers (ISOVUE 07-31 Intravenou ity o f 370-500 mL) 14:04: 14:05 s, ONCE, 1 [place] injection 00 :00 dose, On Medica l 100 mL Wed Branch 07/31/22 at 0930, Routine NaCl 0.9% Yes 5mL 5 mL, Slow Un cameron (NS) 07-31 IV Push, ity of injection 5 13:45: PRN - SEE [place] mL 14 [facility] Medical NS, Branch Starting on Fri07/31/22 at 0845, Until Discontinu ed, 10 mL ondansetron No 4mg 4 mg, Slow Univers (ZOFRAN 04-09 IV Push, ity of (PF)) 15:45: 15:00 ONCE, 1 [place] injection 4 00 :00 dose, On Medi justa mg [facility] 04/09/22 Branch at 1045, Routine iopamidol 2021- No [id number] 50mL 50 mL, U nivers (ISOVUE 04-09 Intravenou ity o f 370-500 mL) 14:50: 14:51 s, ONCE, 1 [place] injection 00 :00 dose, On Medica l 50 mL [facility] 04/09/22 Branch at 1000, Routine NaCl 0.9% 2021- No 1000mL at 999 Uni vers (NS) bolus 04-09-07 mL/hr, ity of infusion 14:45: 15:54 1,000 mL, [place] as 1,000 mL 00 :00 IV Medical Infusion, Branch ONCE, 1 dose, On 04/09/22 at 0945, STAT morpHINE (4 Yes 4mg 4 mg, Slow Univers mg/mL) 04-09 IV Push, ity of injection 4 14:35: Q4HPRN, [place] as mg 58 Starting Medical on [facility] 04/09/22 at 0935, Until Discontinu ed, Routine, Pain (scale 7-10) sodium Yes 5mL 5 mL, Univers chloride 04-09 Intravenou ity o f (NS) 14:30: s, PRN, [place] injection 5 37 Starting Medi justa mL on [facility] 04/09/22 at 0930, Until Discontinu ed, Routine, IV line flushing traMADoL 2021- No [id number] 100mg Take 1 Unive rs 100 mg 24 04-09 tablet by ity of hr tablet 00:00: 04:59 mouth [place] 00 :00 daily for Medical 7 days. Branch Indication s: acute pain losartan 50 Yes [id number] 50mg Take 1 Univers mg tablet 04-08 tablet by ity o f 00:00: mouth [place] 00 daily. Medical Branch losartan 50 2021- No [id number] 50mg Take 1 Univers mg tablet 04-08 tablet by ity of 00:00: 00:00 mouth [place] 00 :00 daily. Medical Branch Vital Signs Vital Name Observation Time Observation Value Comments Source Systolic blood 2022-08-02 15:39:00 182 mm[Hg] [facility] Diastolic blood 2022-08-02 15:39:00 97 mm[Hg] [facility] Heart rate 2022-08-02 15:39:00 79 /min [facility] Body temperature 2022-08-02 15:39:00 36.56 Neema [facility] Respiratory rate 2022-08-02 15:39:00 18 /min [facility] Oxygen saturation in 2022-08-02 15:39:00 99 /min [facility] Arterial blood by [facility] [place] Pulse oximetry Branch Body weight 2022-08-02 01:42:00 79.47 kg [facility] BMI 2022-08-02 01:42:00 25.14 kg/m2 [facility] Systolic blood 2022-04-09 14:34:00 132 mm[Hg] [facility] [place] Diastolic blood 2022-04-09 14:34:00 94 mm[Hg] Unive [facility] Heart rate 2022-04-09 14:34:00 74 /min [facility] Body temperature 2022-04-09 14:34:00 36.22 Neema [facility] Respiratory rate 2022-04-09 14:34:00 18 /min [facility] Body weight 2022-04-09 14:34:00 82.555 kg [facility] BMI 2022-04-09 14:34:00 26.11 kg/m2 [facility] Oxygen saturation in 2022-04-09 14:34:00 100 /min [facility] Arterial blood by [facility] [place] Pulse oximetry [place] Procedures Procedure Date / Time Performing Clinician Source Performed BASIC METABOLIC PANEL 2022-08-02 10:34:00 Wendy Wagner [facility] (NA, K, CL, CO2, GLUCOSE, Medica l Branch BUN, CREATININE, CA) CBC WITH DIFF 2022-08-02 10:34:00 Wendy Wagner [facility] MR BRAIN W WO CONTRAST 2022-08-01 22:03:06 Wendy Wagner [facility] URINE DRUG (IMMUNOASSAY) 2022-08-01 18:25:00 Kadie Olvera [facility] - COMPREHENSIVE DRUG Medical [facility] SCREEN BLOOD CULTURE SCREEN 2022-08-01 18:21:00 Wendy Wagner [facility] BLOOD CULTURE SCREEN 2022-08-01 17:43:00 Wendy Wagner [facility] COMP. METABOLIC PANEL 2022-08-01 10:35:00 Wendy Wagner [facility] ([id number]) [facility] TRANSTHORACIC ECHO (TTE) 2022-07-31 20:02:00 Kadie Olvera [facility] COMPLETE W/ CONTRAST Medical [facility] URINALYSIS 2022-07-31 15:17:00 Mihir Sharma [facility] CT ANGIOGRAM CHEST 2022-07-31 14:17:00 Mihir Sharma [facility] CT ANGIOGRAM 2022-07-31 14:17:00 Mihir Sharma [facility] ABDOMEN/PELVIS Medical Branch CT STROKE ANGIOGRAM HEAD 2022-07-31 14:16:00 Mihir Sharma [facility] CT STROKE ANGIOGRAM NECK 2022-07-31 14:16:00 Mihir Sharma [facility] CT STROKE HEAD WO 2022-07-31 13:56:[address] [facility] CONTRAST [facility] TROPONIN I 2022-07-31 13:46:00 Mihir Sharma [facility] THYROID STIMULATING 2022-07-31 13:46:00 Kadie Olvera [facility] HORMONE [facility] Branch BASIC METABOLIC PANEL 2022-07-31 13:46:00 Mihir Sharma [facility] (NA, K, CL, CO2, GLUCOSE, Medica l Branch BUN, CREATININE, CA) LIPID PANEL ([id number])(TOTAL 2022-07-31 13:46:00 Kadie Olvera [facility] CHOLESTEROL, Medical Branch TRIGLYCERIDES, HDL) ETHANOL 2022-07-31 13:46:00 Mihir Sharma [facility] CBC WITHOUT DIFF 2022-07-31 13:46:00 Mihir Sharma [facility] GLYCOSYLATED HEMOGLOBIN 2022-07-31 13:46:00 May [facility] (A1C) [facility] PROTHROMBIN TIME / INR 2022-07-31 13:46:00 Mihir Sharma [facility] ACTIVATED PARTIAL 2022-07-31 13:46:[address] [facility] THRMPLAS QUITA Medical [place] LOW-DENSITY LIPOPROTEIN, 2022-07-31 13:46:00 Kadie Olvera [facility] DIRECT Medical [place] COVID-19 (ID NOW RAPID 2022-07-31 13:46:00 Mihir Sharma [facility] TESTING) Medical Branch LAB ONLY COVID 2022-07-31 13:46:00 Mihir Sharma [facility] INTERPRETATION [facility] HB ECG ROUTINE & RHYTHM 2022-07-31 13:44:36 Mihir Sharma [facility] STRIP Medical Branch CONSENT/REFUSAL FOR 2022-07-31 13:28:04 Doctor Unassigned, [facility] DIAGNOSIS AND TREATMENT [place] Medical [place] HOSPITAL ADMISSION 2022-07-31 05:01:00 Doctor Taylor [facility] Name Medical [place] URINALYSIS 2022-04-09 15:11:[address] [facility] CT ABDOMEN PELVIS W 2022-04-09 14:56:45 Malka Mcgovern [facility] of [place] CONTRAST [facility] Branch LIPASE 2022-04-09 14:36:[address] [facility] COMP. METABOLIC PANEL 2022-04-09 14:36:00 Singer Malka [facility] ([id number]) Medical [place] CBC WITH DIFF 2022-04-09 14:36:[address] [facility] NOTICE OF PRIVACY 2022-04-09 14:30:05 Doctor Taylor [facility] PRACTICES [place] Medical [place] CONSENT/REFUSAL FOR 2022-04-09 14:29:07 Doctor Taylor [facility] DIAGNOSIS AND TREATMENT [facility] Encounters Start End Encounter Admission Attending Care Care Encounter Source Date/Time Date/Time Type Type Clinicians Facility Department ID 2022-08-05 2022-08-05 Transition MINESH Mac [id number] Univers 00:00:00 00:00:00 of Care Mihaela RAUSCH [id number] i ty [facility] [id number] [place] [id number] [facility] 403 Branch 2022-07-31 2022-08-02 Inpatient U FILIPE KYPATTI SBU [id number] Univers 08:34:00 16:00:00 PARAM ity [facility] 2022-07-31 2022-08-02 Hospital Mihir Sharma [id number] Univers 08:34:00 16:00:00 Encounter Param Dent [id number] ity [facility] [id number] [facility] 092 Branch 2022-04-09 2022-04-09 Emergency X SINGER KYPATTI ERT [id number] Univers 09:31:00 10:55:00 MALKA ity [facility] 2022-04-09 2022-04-09 Emergency Mcgovern, [facility] [id number] Univers 09:31:00 10:55:00 Malka AGUIAR [id number] [facility] [id number] [facility] [id number] [place] [address] Branch Results Test Description Test Time Test Comments Results Result Comments Source BASIC METABOLIC PANEL (NA, K, CL, CO2, GLUCOSE, BUN, 2022-07 11:38:29 CREATININE, CA) Test Item Value Reference Range Interpretation Comme nts NA (test code = 5520022780) 138 mmol/L 135-145 K (test code = 7012790890) 4.1 mmol/L 3.5-5 CL (test code = 7747368951) 106 mmol/L 98-108 CO2 TOTAL (test code = 8993242651) 26 mmol/L 23-31 AGAP (test code = 0941266641) 2-16 BUN (test code = 0789214605) 16 mg/dL 7-23 GLUCOSE (test code = 3236352374) 153 mg/dL 70-110 H CREATININE (test code = 0.90 mg/dL 0.6-1.25 9785021164) CALCIUM (test code = 6348875481) 8.6 mg/dL 8.6-10.6 eGFR (test code = 9025430868) mL/min/1.73m2 JEY (test code = JEY) Association [...] tests). Lab Interpretation (test code = Abnormal 86494-5) [facility] WITH [id number] 10:59:07 Test Item Value Reference Range Interpretation Comments WBC (test code = See_Comment [Automated 9090-2) message] The sy stem which generated this result transmitted reference range : 4.20 - 10.70 10*3/?L. The reference range was not used to interpret this result as normal/abnormal . RBC (test code = See_Comment [Automated 109-8) message] The sy stem which generated this result transmitted reference range : 4.26 - 5.52 10*6/?L. The reference range was not used to interpret this result as normal/abnormal . HGB (test code = 13.9 g/dL 12.2-16.4 718-7) HCT (test code = 38.3 % 38.4-49.3 L 4544-3) MCV (test code = 87.4 fL 81.7-95.6 787-2) MCH (test code = 31.7 pg 26.1-32.7 785-6) MCHC (test code = 36.3 g/dL 31.2-35 H 786-4) RDW-SD (test code = 35.5 fL 38.5-51.6 L 61143-6) RDW-CV (test code = 11.2 % 12.1-15.4 L 788-0) PLT (test code = See_Comment [Automated 777-3) message] The sy stem which generated this result transmitted reference range : 150 - 328 10*3/ ?L. The reference r ruiz was not used to interpret this result as normal/abnormal . MPV (test code = 9.3 fL 9.8-13 L 27887-7) NRBC/100 WBC (test See_Comment [Automat ed code = 3478591818) message] The system which generated this result transmitted reference range : 0.0 - 10.0 /100 WBCs. The refer ence range was not u sed to interpret th is result as normal/abnormal . NRBC x10^3 (test code See_Comment [Auto mated = 1644646940) message] The s ystem which generated this result transmitted reference range : 10*3/?L. The reference range was not used to interpret this result as normal/abnormal . GRAN MAT (NEUT) % 59.0 % (test code = 770-8) IMM GRAN % (test code 0.40 % = 9602169296) LYMPH % (test code = 29.4 % 736-9) MONO % (test code = 6.7 % 5905-5) EOS % (test code = 3.9 % 713-8) BASO % (test code = 0.6 % 706-2) GRAN MAT x10^3(ANC) 3.18 10*3/uL 1.99-6.95 (test code = 0872793244) IMM GRAN x10^3 (test 0-0.06 code = 9770499640) LYMPH x10^3 (test code 1.58 10*3/uL 1.09-3.23 = 731-0) MONO x10^3 (test code 0.36 10*3/uL 0.36-1.02 = 742-7) EOS x10^3 (test code = 0.21 10*3/uL 0.06-0.53 711-2) BASO x10^3 (test code 0.03 10*3/uL 0.01-0.09 = 704-7) Lab Interpretation Abnormal (test code = 24731-5) [facility]. METABOLIC PANEL ([id number])2022-08-01 11:39:32 Test Item Value Reference Range Interpretation Comments NA (test code = 136 mmol/L 135-145 0936064772) K (test code = 3.9 mmol/L 3.5-5 2973675776) CL (test code = 105 mmol/L 98-108 5601100672) CO2 TOTAL (test code = 27 mmol/L 23-31 7333234518) AGAP (test code = 2-16 8655105672) BUN (test code = 15 mg/dL 7-23 1078675521) GLUCOSE (test code = 131 mg/dL 70-110 H 5963033541) CREATININE (test code = 0.89 mg/dL 0.6-1.25 7461145447) TOTAL BILI (test code = 0.5 mg/dL 0.1-1.2 9269120537) CALCIUM (test code = 7.9 mg/dL 8.6-10.6 L 3899784731) T PROTEIN (test code = 6.4 g/dL 6.3-8.2 9862234120) ALBUMIN (test code = 3.5 g/dL 3.5-5 0357002737) ALK PHOS (test code = 60 U/L 34-122 9127965439) ALTv (test code = 16 U/L 5-50 2-6) AST(SGOT) (test code = 30 U/L 13-40 4722393088) eGFR (test code = mL/min/1.73m2 5192964587) JEY (test code = JEY) Association of Glomerular Filtration Rate (GFR) and Staging of Kidney Disease* + --+ --+ ------+| GFR (mL/min/1.73 m2) ?| With Kidney Damage ?| ?Without Kidney Damage+ --------+ --------+ +| ?>90 ?| ?Stage one ?| ? Normal ?+ ---+ ---+ -------+| ?60-89 ?| ?Stage two ?| ? Decreased GFR ? + --+ --+ ------+| ?30-59 ?| ?Stage three ?| ? Stage three ? + --+ --+ ------+| ?15-29 ?| ?Stage four ? | ? Stage four ?+ ---+ ---+ -------+| ?<15 (or dialysis) ? ?| ?Stage five ? | ? Stage five ?+ ---+ ---+ -------+ *Each stage assumes the associated GFR [...] or abnormalities in imaging tests). Lab Interpretation Abnormal (test code = 13395-3) [facility]IP[facility]OTEIN, [id number] 05:25:31 Test Item Value Reference Range Interpretation Comments dLDL Chol (test code = 130 mg/dL See_Comment [Aut omated message] 98251-0) The system [employer] generated this result transmit li reference range : <=130. The refe rence range was not u sed to interpret th is result as normal/abnormal . Lab Interpretation (test Abnormal code = 45104-2) [facility] HospitalFAST[facility] LIPID PANEL (35007)(TOTAL CHOLESTEROL, TRIGLYCERIDES, HDL)2022-08-01 00:25:45 Test Item Value Reference Range Interpretation Comments CHOL (test code = 237 mg/dL 120-200 H 4096890591) HDL (test code = 43 mg/dL See_Comment [Automated message] 6634519637) The system [employer] generated this result transmitted ref erence range: >=40. Th e reference range was not used to int erpret this result as normal/abnormal . HDLC RATIO (test code = See_Comment H [Au tomated message] 4814423139) The system [employer] generated this result transmitted ref erence range: <=5.0. T he reference range was not used to int erpret this result as normal/abnormal . TRIG (test code = 438 mg/dL 30-170 H 5713950303) LDL CHOL (test code = Unable to calculate 39813-2) LDL due to elev ated triglyceride le dave greater than 40 0 mg/dL. VLDL (test code = 88 mg/dL 5-60 H 6583073842) Lab Interpretation Abnormal (test code = 71871-8) [facility] HospitalGLYCOSYLATED HEMOGLOBIN (A1C)2022-07-31 23:21:43 Test Item Value Reference Range Interpretation Comments HGB A1C (test code = 8.8 % 4-5.7 H 4548-4) JEY (test code = JEY) Reference RangesNormal: <5.7%Prediabetes: 5.7 - 6.4%Diabetes: > 6.5% Lab Interpretation (test Abnormal code = 37280-9) [facility]STR[facility] Protocol - Transthoracic echo (TTE) 2022-07-31 21:10:12 Test Item Value Reference Range Interpretation Comments Height (test code = in 8226869489) Weight (test code = lbs 6112917290) Systolic BP (test code = mmHg 3523092301) Diastolic BP (test code mmHg = 8730907249) Heart Rate (test code = bpm 9998761021) LVOT stroke volume (test 57.20 cm3 code = 5271020532) EF(Teich) (test code = 51.60 % 2696175157) LVIDD (test code = 4.40 cm 0112994471) LVIDS (test code = 3.20 cm 4223904939) Left Ventricular End 42.5 mL Systolic Volume by Teichholz Method (test code = 8430136) Left Ventricular End 87.7 mL Diastolic Volume by Teichholz Method (test code = 0150618) IVS (test code = 0.95 cm 8533593492) LVPWD (test code = 0.99 cm 2009037282) LVOT diameter (test code 2.01 cm = 9816590683) LVOT area (test code = 3.20 cm2 0505775150) FS (test code = 26 % 0138620601) MV Peak E Dave (test code 76.7 cm/s = 2202776851) MV Peak A Dave (test code 108.4 cm/s = 4815459282) E/A ratio (test code = ratio 0980945195) E wave decelartion time 0.26 s (test code = 0436324919) LA volume (BP) (test 40.2 mL code = 9070156893) LVOT peak dave (test code 85.3 cm/s = 6615763507) LVOT mn grad (test code mmHg = 2353670995) LA size (test code = 4.6 cm 2417786831) LAV(MOD-sp2) (test code 41.90 mL = 5927377148) LAV(MOD-sp4) (test code 38.80 mL = 4918438126) Tapse (test code = 1.53 cm 3233566023) Aortic valve mean 75.4 cm/s velocity (test code = 7192549999) Ao peak dave (test code = 127.0 cm/s 9159748417) Ao VTI (test code = 22.0 cm 5927816693) AV LVOT peak gradient mmHg (test code = 7435613478) LVOT peak VTI (test code 18.1 cm = 4657886205) AV area by cont VTI 2.6 cm2 (test code = 0118151611) AV area peak dave (test 2.1 cm2 code = 6755409287) LV V1 mean (test code = 52.30 cm/s 0417344006) Ao max PG (test code = 6.50 mm[Hg] 3678956151) MV Prop V (test code = 45.30 cm/s 2579523747) Ao root diam (test code 3.20 cm = 9214117926) AV peak gradient (test mmHg code = 8760634362) AV valve area (test code 2.60 cm2 = 0092166278) AV mean gradient (test mmHg code = 8351527687) Aortic root (test code = 3.2 cm 1828740014) Ao root annulus (test 3.2 cm code = 9330419735) PW (test code = 0.99 cm 0.6-1.5 3754606015) EF - 2D (test code = 51.60 % 01622279) Interventricular Septum 0.95 cm Diastolic Thickness by 2D (test code = 1371053) LA Volume Index (BP) 20.0 mL/m2 (test code = 5640266144) BSA (test code = 2.01 m2 2933660317) A4C EF (test code = 63.50 % 0303128941) EF(sp4-el) (test code = 63.20 % 4761416190) SV(MOD-sp4) (test code = 56.60 mL 3288348577) SV(sp4-el) (test code = 56.40 mL 0509876268) LV Diastolic Volume (BP) 85.8 mL (test code = 5852039801) A2C EF (test code = 79.90 % 2967945967) EF(MOD-bp) (test code = 73.80 % 2597362344) EF(sp2-el) (test code = 80.70 % 8921234646) LV Systolic Volume (BP) 22.5 mL (test code = 8107981324) SV(MOD-bp) (test code = 63.30 mL 6839874425) SV(MOD-sp2) (test code = 63.70 mL 3972387110) EF (test code = 3456846071) Left Ventricular Stroke 63.3 mL Volume by 2-D Biplane-MOD (test code = 2561498) LV Diastolic Volume 42.7 mL/m2 Index (BP) (test code = 9760653385) LV Systolic Volume Index 11.2 mL/m2 (BP) (test code = 8785746071) Radiology Study observation (narrative) (test code = 09008-2) JEY (test code = JEY) ?Left?Ventricle: Left ventricle size is normal. Normal wall thickness. There is concentric remodeling (LVMI 70 g/m2 with RWT 0.45). Normal wall motion. Normal diastolic function. ?Right?Ventricle: Right ventricle size is normal. Normal systolic function. ?Left?Atrium: Saline contrast shows no shunt. ?Tricuspid?Valve: Tricuspid valve structure is normal. Insufficient tricuspid regurgitation jet to estimate RVSP.Trace transvalvular regurgitation. Right ventricular systolic pressure is normal. ?RA pressure is 0-5 mmHg. Left VentricleLeft ventricle size is normal. Normal wall thickness. There is concentric remodeling (LVMI 70 g/m2 with RWT 0.45). Normal wall motion. Normal systolic function with a visually estimated EF of greater than 65%. EF by 2D [place] biplane is 74%. Normal diastolic function.Right VentricleRight ventricle size is normal. Normal systolic function.Left AtriumLeft atrium size is normal. Left atrium volume index is 20.0 mL/m2. Saline contrast shows no shunt.Right AtriumRight atrium size is normal.IVC/SVCIVC diameter is less than or equal to 21 mm and decreases greater than 50% during inspiration; therefore the estimated right atrial pressure is normal (~0-5 mmHg).Mitral ValveMitral valve structure is normal. Mild mitral annular calcification. Trace transvalvular regurgitation.Tricusp id ValveTricuspid valve structure is normal. Insufficient tricuspid regurgitation jet to estimate RVSP.Trace transvalvular regurgitation. Right ventricular systolic pressure is normal. RA pressure is 0-5 mmHg.Aortic ValveNot well visualized. Trace transvalvular regurgitation. No hemodynamically significant .Pulmonic ValveNot well visualized. Trace transvalvular regurgitation.Ascendi ng AortaNormal sized annulus and sinus of Valsalva.PericardiumT he pericardium is normal. No pericardial effusion.Study DetailsStudy quality experienced technical difficulty. A complete echocardiogram was performed using 2D, color flow Doppler and spectral Doppler. The apical, parasternal and subcostal views were obtained. Lumason ultrasound enhancing agent used and saline contrast was performed. Patient exhibited sinus rhythm. [facility] HospitalTHYROID STIMULATING [id number] 21:01:36 Test Item Value Reference Range Interpretation Comments TSH (test code = See_Comment Biotin has been 4634478189) reported to cau se a negative bias, interpret resul ts relative to mary talamantes's use of biotin. [Automated mess age] The system [employer] generated this result transmitted ref erence range: 0.45 - 4 .70 mIU/L. The refe rence range was not u sed to interpret this result as normal/abnor mal. Lab Interpretation (test Normal code = 99302-2) [facility] HospitalETHANOL2022-09-28 14:53:34 ALCOHOL<10mg/dL07/31/2022 9:53 AM [facility]<10 Zdsxeglu74-870 Toxic>100 Depression of PERMASTONE APPLICATOR>400 Fatalities ReportedUnWhite Rock Medical CenterTroponin I - Code [id number] 14:15:41 Test Item Value Reference Interpretation Comments Range TROPONIN I (test 0.034 ng/mL See_Comment [Automated code = 6923306500) message] The system which generated this result transmitted reference range : <=0.034. The reference range was not used to interpret this result as normal/abnormal . JEY (test code = Reference (Normal) JEY) Range (defined by the 99th percentile reference limit): <= 0.034 ng/mL Note: Cardiac troponin begins to rise 3-4 hours after the onset of ischemia. Repeat in 4-6 hours if the sample was drawn within 3-4 hours of the onset of the symptom and found normal. Diagnosis of myocardial injury is made with acute changes in cTn concentrations with at least one serial sample above the 99th percentile upper reference limit (URL), taken together with the patient's clinical presentation. Biotin has been reported to cause a negative bias, interpret results relative to patient's use of biotin. Lab Interpretation Normal (test code = 34630-0) [facility] Metabolic Panel (NA, K, CL, CO2, Glucose, BUN, Creatinine, CA) - Code [id number] 14:04:01 Test Item Value Reference Range Interpretation Comments NA (test code = 133 mmol/L 135-145 L 4590534299) K (test code = 4.7 mmol/L 3.5-5 2830762922) CL (test code = 95 mmol/L 98-108 L 7073557856) CO2 TOTAL (test code = 27 mmol/L 23-31 7868563772) AGAP (test code = 2-16 7701695486) BUN (test code = 18 mg/dL 7-23 7759623384) GLUCOSE (test code = 170 mg/dL 70-110 H 5190467415) CREATININE (test code = 1.06 mg/dL 0.6-1.25 2780597825) CALCIUM (test code = 10.1 mg/dL 8.6-10.6 1501906897) eGFR (test code = mL/min/1.73m2 7787659090) JEY (test code = JEY) Association of Glomerular Filtration Rate (GFR) and Staging of Kidney Disease* + --+ --+ ------+| GFR (mL/min/1.73 m2) ?| With Kidney Damage ?| ?Without Kidney Damage+ --------+ --------+ +| ?>90 ?| ?Stage one ?| ? Normal ?+ ---+ ---+ -------+| ?60-89 ?| ?Stage two ?| ? Decreased GFR ? + --+ --+ ------+| ?30-59 ?| ?Stage three ?| ? Stage three ? + --+ --+ ------+| ?15-29 ?| ?Stage four ? | ? Stage four ?+ ---+ ---+ -------+| ?<15 (or dialysis) ? ?| ?Stage five ? | ? Stage five ?+ ---+ ---+ -------+ *Each stage assumes the associated GFR [...] or abnormalities in imaging tests). Lab Interpretation Abnormal (test code = 93581-2) [facility] HospitalaPTT - Code [id number] 14:02:15 Test Item Value Reference Range Interpretation Comments APTT Patient (test See_Comment [Automat ed code = 3173-2) message] The system which generated this result transmitted reference range : 23 - 38 Seconds . The reference range was not used to interpr et this result as normal/abnormal . JEY (test code = JEY) The [facility] patient population mean normal value for aPTT is 30 seconds. Lab Interpretation Normal (test code = 72809-0) [facility] HospitalProthrombin Time / INR - Code [id number] 13:59:58 Test Item Value Reference Range Interpretation Comments PROTIME PATIENT (test See_Comment [Auto mated message] code = 5964-2) The system [employer] generated this result transmitted ref erence range: 12.0 - 1 4.7 Seconds. The re ference range was not u sed to interpret this result as normal/abnor mal. INR (test code = 6301-6) Nor mal INR <1.1; Warfarin Therap eutic range 2.0 to 3. 0 or 2.5 to 3.5, dep ending upon the indica tions. Lab Interpretation (test Normal code = 32575-8) [facility] HospitalCBC without Diff - Code [id number] 13:53:59 Test Item Value Reference Range Interpretation Comments WBC (test code = 6690-2) See_Comment [A utomated message] The system [employer] generated this result transmit li reference range : 4.20 - 10.70 10*3/?L. The reference range was not used to interpret this result as normal/abnormal . RBC (test code = 789-8) See_Comment [Au tomated message] The system [employer] generated this result transmit li reference range : 4.26 - 5.52 10* 6/?L. The reference r ruiz was not used to interpret this result as normal/abnormal . HGB (test code = 718-7) 15.3 g/dL 12.2-16.4 HCT (test code = 4544-3) 42.3 % 38.4-49.3 MCH (test code = 785-6) 31.8 pg 26.1-32.7 MCV (test code = 787-2) 87.9 fL 81.7-95.6 MCHC (test code = 786-4) 36.2 g/dL 31.2-35 H PLT (test code = 777-3) See_Comment [Au tomated message] The system [facility] generated this result transmit li reference range : 150 - 328 10*3/?L. The reference range was not used to interpret this result as normal/abnormal . MPV (test code = 9.0 fL 9.8-13 L 52879-3) RDW-CV (test code = 11.1 % 12.1-15.4 L 788-0) RDW-SD (test code = 35.9 fL 38.5-51.6 L 80828-2) NRBC x10^3 (test code = See_Comment [Au tomated message] 3307756731) The [facility] generated this result transmit li reference range : 10*3/?L. The reference range was not used to interpret this result as normal/abnormal . NRBC/100 WBC (test code See_Comment [Au tomated message] = 4285313586) The system [facility] generated this result transmit li reference range : 0.0 - 10.0 /100 WBC s. The reference r ruiz was not used to interpret this result as normal/abnormal . IPF % (test code = 5323713607) Lab Interpretation (test Abnormal code = 47754-6) [facility] HospitalComplete Metabolic [id number] 15:39:24 Test Item Value Reference Range Interpretation Comments NA (test code = 132 mmol/L 135-145 L 8318023274) K (test code = 4.9 mmol/L 3.5-5.0 5309842898) CL (test code = 94 mmol/L 98-108 L 1656195421) CO2 TOTAL (test code = 26 mmol/L 23-31 7582738273) AGAP (test code = 2-16 9386499687) BUN (test code = 20 mg/dL 7-23 4453602928) GLUCOSE (test code = 207 mg/dL 70-110 H 2176963105) CREATININE (test code = 1.17 mg/dL 0.60-1.25 0684603447) TOTAL BILI (test code = 0.9 mg/dL 0.1-1.2 8088069408) CALCIUM (test code = 9.2 mg/dL 8.6-10.6 6480492535) T PROTEIN (test code = 7.3 g/dL 6.3-8.2 8665973215) ALBUMIN (test code = 4.4 g/dL 3.5-5.0 5347654193) ALK PHOS (test code = 75 U/L 34-122 5875909769) ALTv (test code = 60 U/L 5-50 H 1742-6) AST(SGOT) (test code = 74 U/L 13-40 H 5556793361) eGFR (test code = mL/min/1.73m2 8684969579) JEY (test code = JEY) Association of Glomerular Filtration Rate (GFR) and Staging of Kidney Disease* + --+ --+ ------+| GFR (mL/min/1.73 m2) ?| With Kidney Damage ?| ?Without Kidney Damage+ --------+ --------+ +| ?>90 ?| ?Stage one ?| ? Normal ?+ ---+ ---+ -------+| ?60-89 ?| ?Stage two ?| ? Decreased GFR ? + --+ --+ ------+| ?30-59 ?| ?Stage three ?| ? Stage three ? + --+ --+ ------+| ?15-29 ?| ?Stage four ? | ? Stage four ?+ ---+ ---+ -------+| ?<15 (or dialysis) ? ?| ?Stage five ? | ? Stage five ?+ ---+ ---+ -------+ *Each stage assumes the associated GFR [...] or abnormalities in imaging tests). Lab Interpretation Abnormal (test code = 18797-3) [facility] HospitalLipase, [id number] 15:39:03 Test Item Value Reference Range Interpretation Comments LIPASE (test code = 7217851186) 105 U/L 0-220 Lab Interpretation (test code = Normal 26704-1) [facility] HospitalCBC with [id number] 15:06:58 Test Item Value Reference Range Interpretation Comments WBC (test code = See_Comment [Automated 0171-2) message] The sy stem which generated this result transmitted reference range : 4.20 - 10.70 10*3/?L. The reference range was not used to interpret this result as normal/abnormal . RBC (test code = See_Comment [Automated 899-8) message] The sy stem which generated this [...] (test code = 36.6 fL 38.5-51.6 L 59339-0) RDW-CV (test code = 11.4 % 12.1-15.4 L 788-0) PLT (test code = See_Comment [Automated 847-3) message] The sy stem which generated this result transmitted reference range : 150 - 328 10*3/ ?L. The reference r ruiz was not used to interpret this result as normal/abnormal . MPV (test code = 9.0 fL 9.8-13.0 L 45763-5) NRBC/100 WBC (test See_Comment [Automat ed code = 5369591443) message] The system which generated this result transmitted reference range : 0.0 - 10.0 /100 WBCs. The refer ence range was not u sed to interpret th is result as normal/abnormal . NRBC x10^3 (test code <0.01 See_Comment [Auto mated = 0326777206) message] The s ystem which generated this result transmitted reference range : 10*3/?L. The reference range was not used to interpret this result as normal/abnormal . GRAN MAT (NEUT) % 65.3 % (test code = 770-8) IMM GRAN % (test code 0.60 % = 1790025014) LYMPH % (test code = 23.3 % 736-9) MONO % (test code = 5.9 % 5905-5) EOS % (test code = 3.9 % 713-8) BASO % (test code = 1.0 % 706-2) GRAN MAT x10^3(ANC) 4.40 10*3/uL 1.99-6.95 (test code = 1366965298) IMM GRAN x10^3 (test 0.04 10*3/uL 0.00-0.06 code = 4233183078) LYMPH x10^3 (test code 1.57 10*3/uL 1.09-3.23 = 731-0) MONO x10^3 (test code 0.40 10*3/uL 0.36-1.02 = 742-7) EOS x10^3 (test code = 0.26 10*3/uL 0.06-0.53 711-2) BASO x10^3 (test code 0.07 10*3/uL 0.01-0.09 = 704-7) Lab Interpretation Abnormal (test code = 66504-1) [facility]"
[2023-05-12 06:27] LABS: Absolute Lymphocytes (CBC) 1.5 K/uL (0.7-4.9); Hematocrit 39.7 % (39.6-49.0); Lymphocytes % 27.2 % (15.3-44.8); MCV 90.8 fL (80-100); MPV 6.6 fL (7.6-11.3); RBC Red Blood Cell Count 4.38 M/uL (4.33-5.43)
[2023-05-12 06:31] LABS: Protime INR 0.94
[2023-05-12 06:40] LABS: Potassium 4.8 mEq/L (3.5-5.1)
--- NOTE | 2023-05-12 07:48 | RAD REPORT ---
EXAM DESCRIPTION: US - Extremity Venous Uni Ltd - 05/12/2023 7:17 am CLINICAL HISTORY: Numbness/tingling. Pain COMPARISON: None. TECHNIQUE: Real-time sonographic evaluation of the left lower extremity deep venous system was perfo rmed. FINDINGS: Normal compressibility, flow augmentation, phasic flow and spontaneous flow is identified in the left lower extremity deep venous system. No intraluminal filling defects seen. IMPRESSION: No DVT in the left lower extremity.
--- NOTE | 2023-05-12 07:51 | RAD REPORT ---
EXAM DESCRIPTION: US - Lower Extremity Artery Uni Ltd - 05/12/2023 7:17 am CLINICAL HISTORY: Numbness;Pain COMPARISON: No comparisons TECHNIQUE: Left lower extremity arterial Doppler examination was performed with waveform tracing. FINDINGS: Moderate to advanced calcific atherosclerotic plaque along the femoral and popliteal arter ies. Biphasic waveforms are seen throughout the left lower extremity arterial system to the level of the p opliteal artery. Monophasic flow seen along the left posterior tibial and dorsalis pedis arteries. Blunted upstroke and slow flow along the posterior tibial artery. IMPRESSION: Evidence of moderate peripheral vascular disease, most notably with blunted upstroke and relatively slow monophasic flow of the posterior tibial artery.
--- NOTE | 2023-05-12 10:00 | RAD REPORT ---
EXAM DESCRIPTION: CT - Head Brain Wo Cont - 05/12/2023 9:42 am CLINICAL HISTORY: WEAKNESS COMPARISON: Head angio dated 05/12/2023; Head Brain Wo Cont dated 07/17/2022 TECHNIQUE: Noncontrast head CT images were obtained without IV contrast. Multiplanar reformats were generated and reviewed. All CT scans are performed using dose optimization technique as appropriate and may include automated exposure control or mA/KV adjustment according to patient size. FINDINGS: No intracranial hemorrhage, mass, or edema. Midline structures are unremarkable. Stable ventricular caliber, with mild diffuse parenchymal volume loss. Willams-white matter differentiation is preserved, without evidence of acute infarct. No abnormal extra- axial fluid collections. Mild periventricular and deep white matter hypoattenuation, most pronounced in the left frontal region, stable and nonspecific, suggestive of chronic small vessel ischemic padilla es. Mastoid air cells and visualized portions of the paranasal sinuses are clear. No acute bony findings. IMPRESSION: No evidence of an acute intracranial process. Stable chronic findings as above.
--- NOTE | 2023-05-12 10:14 | RAD REPORT ---
EXAM DESCRIPTION: CT - Spine Lumbar Wo Con - 05/12/2023 9:35 am CLINICAL HISTORY: left leg weakness. Fall COMPARISON: No comparisons TECHNIQUE: Axial noncontrast CT imaging of the lumbar spine was performed without IV contrast. Coron al and sagittal re-formatted images were generated and reviewed. All CT scans are performed using dose optimization technique as appropriate and may include automated exposure control or mA/KV adjustment according to patient size. FINDINGS: No acute lumbar spine fracture seen. No aggressive marrow pattern or malalignment. Paraspinal tissues are normal in thickness. No paraspinal abscess or hematoma seen. Intervertebral disc disease assessment is inherently limited by CT. Within these limitations, no high -grade canal stenosis suspected. Mild disc bulges notably at L4-5 and to lesser extent at L5-S1, bro ad-based, and accompanied with bilateral facet degenerative changes, most pronounced on the right at L5-S1 contributing to mild bilateral neural foraminal narrowing, more pronounced at L4-5 bilaterally. Partially visualized SMA stent. Moderate to advanced distal abdominal aortic and common iliac artery atherosclerotic calcifications IMPRESSION: No acute osseous abnormality. Mild degenerative changes of the lower lumbar spine as abo ve, contributing to mild degrees of neural foraminal narrowing at L4-5 and L5-S1. Please consider MRI follow-up for assessment of disc disease and neural structures involvement, as cl inically desired.
--- NOTE | 2023-05-12 10:47 | RAD REPORT ---
EXAM DESCRIPTION: CT - Neck Angio - 05/12/2023 9:42 am CLINICAL HISTORY: left leg weakness COMPARISON: No comparisons TECHNIQUE: Axial CT angiography images of the head was performed with multiplanar and maximum intens ity projection reconstructions. Images performed following intravenous administration of 95mL Isovue 370. All CT scans are performed using dose optimization technique as appropriate and may include automated exposure control or mA/KV adjustment according to patient size. Quantification of carotid stenosis, if any, is performed according to NASCET criteria. FINDINGS: A left aortic arch is identified with normal three vessel configuration of the great vesse ls. No significant flow abnormality is seen of the common carotid bilaterally. Predominantly noncalcified mild atherosclerotic plaque at the left proximal ICA. Mild and slightly mo re pronounced mixed calcified and noncalcified atherosclerotic plaque on the right. No significant st enosis by NASCET criteria. Severe stenosis at the origin of the left vertebral artery. Vertebral arteries are otherwise patent, with mildly diminutive caliber throughout the left vertebral artery relative to the right, and mild l uminal irregularity. Patchy central ground-glass opacities in the included upper lungs. Numerous periapical lucencies in collections along the residual maxillary and left mandibular dentiti on. Sbod-xa-ldffaqbq inflammatory mucosal thickening at the base of the left maxillary sinus. IMPRESSION: Mild atherosclerotic changes along the proximal ICAs bilaterally, more pronounced on the right, with less than 50% stenosis. Severe stenosis at the origin of the left vertebral artery. Multifocal up to mild stenosis and lumina l irregularities along the course of the artery. Numerous periapical lucencies in collections along the residual Maxillary and left mandibular dentiti on. Uixk-tz-tverdcwm inflammatory mucosal thickening at the base of the left maxillary sinus. CAROTID STENOSIS REFERENCE USING NASCET CRITERIA: % ICA stenosis = (1 - narrowest ICA diameter/diameter of distal cervical ICA) x 100. Mild - <50% stenosis. Moderate - 50-69% stenosis. Severe - 70-94% stenosis. Near occlusion - 95-99% stenosis. Occluded - 100% stenosis.
--- NOTE | 2023-05-12 11:03 | RAD REPORT ---
EXAM DESCRIPTION: CT - Head angio - 05/12/2023 9:41 am CLINICAL HISTORY: left leg weakness COMPARISON: Head Brain Wo Cont dated 07/17/2022; Head Brain Wo Cont dated 10/07/2019; Neck Angio dated 05/12/2023; Head Brain Wo Cont dated 05/12/2023 TECHNIQUE: Axial CT angiography images of the head was performed with multiplanar and maximum intens ity projection reconstructions. Images performed following intravenous administration of 95mL Isovue 370. All CT scans are performed using dose optimization technique as appropriate and may include automated exposure control or mA/KV adjustment according to patient size. FINDINGS: No evidence of large vessel occlusion. No evidence of aneurysm or dissection flap is detec li. Left vertebral artery is markedly diminutive, following the takeoff of the left PICA, with luminal ir regularity and non opacification of the most distal segment to the level of the vertebrobasilar junct ion. Basilar artery opacifies normally. Multifocal mild to moderate narrowing along the left P2 segme nt. No other flow-limiting stenosis or vascular malformation identified. Antegrade flow is seen in the vertebral arteries. The visualized dural venous sinuses are grossly patent. IMPRESSION: Markedly diminutive intracranial left vertebral artery, following the left PICA takeoff, with luminal irregularity. Non opacification of its most distal segment. This could be of developmen miguel nature, versus advanced chronic small vessel ischemic changes. Multifocal udwu-in-fazwlqsh narrowing along the left P2 segment of the SPARK PLUG TESTER. No other evidence of large vessel occlusion or flow-limiting stenosis.
--- NOTE | 2023-05-12 11:15 | ER ---
Nurse's Notes [facility] Name: Oh Roberts Age: 62 yrs Sex: Male : 1960 Arrival Date: 05/12/2023 Time: 05:35 Bed 7 Private MD: Diagnosis: Atherosclerosis of [place] arteries of extremities with intermittent claudication, left leg;Paresthesia of skin Presentation: 05/12 05:52 Chief complaint: Patient states: increases in numbness to left foot reports circulation kl problem and is scheduled for stent placement to left lower extremity on May 22 numbness and difficulty moving last 4-5 days worse this am reports feeling decreases and stumbled this morning when getting up. Coronavirus screen: Vaccine status: Patient reports receiving the 2nd dose of the covid vaccine. Ebola Screen: Patient negative for fever greater than or equal to 101.5 degrees Fahrenheit, and additional compatible Ebola Virus Disease symptoms. Initial Sepsis Screen: Does the patient meet any 2 criteria? No. Patient's initial sepsis screen is negative. Does the patient have a suspected source of infection? No. Patient's initial sepsis screen is negative. Risk Assessment: Do you want to hurt yourself or someone else? Patient reports no desire to harm self or others. Onset of symptoms was May 07, 2023. 05:52 Method Of Arrival: Wheelchair 05:52 Acuity: LUIS M 3 kl Triage Assessment: 05:59 General: Appears distressed, Behavior is cooperative, anxious. Pain: Denies pain. EENT: kl No deficits noted. Neuro: Level of Consciousness is awake, alert, obeys commands, Oriented to person, place, time, situation, Assembler Tractor are equal bilaterally Moves all extremities. Paresis in left foot/feet Speech is normal, Facial symmetry appears normal, Pupils are PERRLA. Cardiovascular: No deficits noted. Respiratory: No deficits noted. GI: No deficits noted. No signs and/or symptoms were reported involving the gastrointestinal system. : No deficits noted. No signs and/or symptoms were reported regarding the genitourinary system. Historical: - Allergies: 06:00 No Known Allergies; kl - Home Meds: 05:56 Plavix 75 mg Oral tablet daily [Active]; Lisinopril Oral [Active]; omeprazole 20 mg kl Oral tablet, delayed release (enteric coated) daily [Active]; - PMHx: 05:56 aortic aneurism \T\ repair; Hypertension; stroke 2003; PVD; kl - PSHx: 05:56 aoritic aneurism \T\ repair; Left ankle; Right leg stent; kl - Immunization history:: Adult Immunizations not immunized. - Social history:: Smoking status: Patient reports the use of cigarette tobacco products, Patient reports use of chewing tobacco. Patient/guardian denies using tobacco, but has a distant history of tobacco abuse. Screenin:38 [facility] ED Fall Risk Assessment (Adult) History of falling in the last 3 months, including since admission No falls in past 3 months (0 pts) Confusion or Disorientation No (0 pts) Intoxicated or Sedated No (0 pts) Impaired Gait Yes (1 pt) Mobility Assist Device Used No (0 pt) Altered Elimination No (0 pt) Score/Fall Risk Level 0 - 2 = Low Risk Oriented to surroundings, Maintained a safe environment. Abuse screen: Denies threats or abuse. Nutritional screening: No deficits noted. Tuberculosis screening: No symptoms or risk factors identified. Assessment: 06:38 Reassessment: Patient appears in no apparent distress at this time. Patient is alert, kl oriented x 3, equal unlabored respirations, skin warm/dry/pink. Vital Signs: 05:52 BP 170 / 95; Pulse 101; Resp 20; Temp 98.3(O); Pulse Ox 97% on R/A; Weight 83 kg; kl Height 5 ft. 10 in. ; 06:38 BP 155 / 86; Pulse 99; Resp 20; Pulse Ox 100% on R/A; kl 11:38 BP 149 / 82; Pulse 89; Resp 18; Pulse Ox 100% on R/A; ld1 05:52 Body Mass Index 26.26 (83.00 kg, 177.8 cm) ED Course: 05:40 Patient arrived in ED. ja2 05:46 Cornell Howe MD is Attending Physician. kdr 05:56 Triage completed. kl 06:08 Basic Metabolic Panel Sent. bc6 06:08 CBC with Diff Sent. bc6 06:08 High Sensitivity Troponin Sent. bc6 06:08 Magnesium Sent. bc6 06:08 Protime (+inr) Sent. bc6 06:09 Ptt, Activated Sent. bc6 06:09 Inserted saline lock: 20 gauge in right antecubital area, using aseptic technique. bc6 06:12 Stroke CXR 1 View In Process Unspecified. EDMS 06:39 Patient has correct armband on for positive identification. Bed in low position. Call kl light in reach. Side rails up X2. 06:39 Door closed. Warm blanket given. kl 07:18 US LE Artery Uni Ltd In Process Unspecified. EDMS 07:18 Extremity Venous Uni Ltd In Process Unspecified. EDMS 09:25 Attending Physician role handed off by Cornell Howe MD rn 09:25 Josiah Fried MD is Attending Physician. rn 09:35 CT Lumbar Spine Wo Con In Process Unspecified. EDMS 09:43 CT Head Brain wo Cont In Process Unspecified. EDMS 09:[address] In Process Unspecified. EDMS 09:43 CT Head Angio In Process Unspecified. EDMS 11:37 No provider procedures requiring assistance completed. IV discontinued, intact, ld1 bleeding controlled, No redness/swelling at site. 11:38 Arm band placed on right wrist. ld1 Administered Medications: No medications were administered Medication: 11:38 VIS not applicable for this client. ld1 Outcome: 11:15 Discharge ordered by . rn 11:37 Discharged to home via wheelchair, with family. ld1 11:37 Condition: stable 11:37 Discharge instructions given to patient, Instructed on discharge instructions, follow up and referral plans. Demonstrated understanding of instructions, follow-up care. 11:38 Patient left the ED. ld1 Signatures: Dispatcher [employer] Leticia Billings RN RN kl Rittger, Kevin, MD MD kdr Nieto, Roman, MD MD rn Sims, Lauren, RN RN ld1 Rosemarie Osei Breana bc6
--- NOTE | 2023-05-12 11:16 | EDPHYS ---
Physician Documentation [facility] Name: Oh Roberts Age: 62 yrs Sex: Male : 1960 Arrival Date: 05/12/2023 Time: 05:35 Bed 7 Private MD: ED Physician Josiah Fried HPI: 05/12 07:33 This 62 yrs old Male presents to ER via Wheelchair with complaints of Foot Numbness, kdr Leg Pain, Leg Numbness. 07:34 Patient states he has had increasing numbness to the left leg and left foot. He reports kdr that he has had a circulation problem in his extremities for some time. He has had stents placed in the right leg and is feeling much better at this time in that extremity however his left extremity continues to be problematic. Specifically the leg and foot have been intermittently more persistently numb. The numbness has started on about April 22 with difficulty moving the leg for the last 4 to 5 days. Today the patient reported increased numbness and stumbling this morning when he got up.. Onset: The symptoms/episode began/occurred suddenly, 2 week(s) ago. Severity of symptoms: At their worst the symptoms were moderate severe in the emergency department the symptoms are unchanged. The patient has not experienced similar symptoms in the past. The patient has been recently seen by a physician:. Historical: - Allergies: 06:00 No Known Allergies; kl - Home Meds: 05:56 Plavix 75 mg Oral tablet daily [Active]; Lisinopril Oral [Active]; omeprazole 20 mg kl Oral tablet, delayed release (enteric coated) daily [Active]; - PMHx: 05:56 aortic aneurism \T\ repair; Hypertension; stroke 2003; PVD; kl - PSHx: 05:56 aoritic aneurism \T\ repair; Left ankle; Right leg stent; kl - Immunization history:: Adult Immunizations not immunized. - Social history:: Smoking status: Patient reports the use of cigarette tobacco products, Patient reports use of chewing tobacco. Patient/guardian denies using tobacco, but has a distant history of tobacco abuse. ROS: 07:34 Constitutional: Negative for fever, chills, and weight loss, Eyes: Negative for injury, kdr pain, redness, and discharge, Neck: Negative for injury, pain, and swelling, Cardiovascular: Negative for chest pain, palpitations, and edema, Respiratory: Negative for shortness of breath, cough, wheezing, and pleuritic chest pain, Abdomen/GI: Negative for abdominal pain, nausea, vomiting, diarrhea, and constipation, Back: Negative for injury and pain, : Negative for injury, bleeding, discharge, and swelling, Skin: Negative for injury, rash, and discoloration, Neuro: Negative for headache, weakness, numbness, tingling, and seizure activity. Psych: Negative for depression, anxiety, suicide ideation, homicidal ideation, and hallucinations, Allergy/Immunology: Negative for hives, rash, and allergies, Endocrine: Negative for neck swelling, polydipsia, polyuria, polyphagia, and marked weight changes, Hematologic/Lymphatic: Negative for swollen nodes, abnormal bleeding, and unusual bruising. 07:34 MS/extremity: Positive for Decreased sensation throughout the leg and generalized weakness that is intermittent but becoming more persistent. Patient also has significant pain in the leg with walking (claudication).. Exam: 07:34 Constitutional: This is a well developed, well nourished patient who is awake, alert, kdr and in no acute distress. Head/Face: Normocephalic, atraumatic. Eyes: Pupils equal round and reactive to light, extra-ocular motions intact. Lids and lashes normal. Conjunctiva and sclera are non-icteric and not injected. Cornea within normal limits. Periorbital areas with no swelling, redness, or edema. Neck: Trachea midline, no thyromegaly or masses palpated, and no cervical lymphadenopathy. Supple, full range of motion without nuchal rigidity, or vertebral point tenderness. No Meningismus. Chest/axilla: Normal chest wall appearance and motion. Nontender with no deformity. No lesions are appreciated. Cardiovascular: Regular rate and rhythm with a normal S1 and S2. No gallops, murmurs, or rubs. Normal PMI, no JVD. No pulse deficits. Respiratory: Lungs have equal breath sounds bilaterally, clear to auscultation and percussion. No rales, rhonchi or wheezes noted. No increased work of breathing, no retractions or nasal flaring. Abdomen/GI: Soft, non-tender, with normal bowel sounds. No distension or tympany. No guarding or rebound. No evidence of tenderness throughout. Back: No spinal tenderness. No costovertebral tenderness. Full range of motion. Skin: Warm, dry with normal turgor. Normal color with no rashes, no lesions, and no evidence of cellulitis. Neuro: Awake and alert, GCS 15, oriented to person, place, time, and situation. Cranial nerves II-XII grossly intact. Motor strength 5/5 in all extremities. Sensory grossly intact. Cerebellar exam normal. Normal gait. Psych: Awake, alert, with orientation to person, place and time. Behavior, mood, and affect are within normal limits. 07:34 Musculoskeletal/extremity: ROM: no acute changes, Pulses: are absent in the right posterior tibial artery, right dorsalis pedis artery, left posterior tibial artery and left dorsalis pedis artery, numbness, decreased sensation, Weight bearing: able to fully bear weight. Vital Signs: 05:52 BP 170 / 95; Pulse 101; Resp 20; Temp 98.3(O); Pulse Ox 97% on R/A; Weight 83 kg; kl Height 5 ft. 10 in. ; 06:38 BP 155 / 86; Pulse 99; Resp 20; Pulse Ox 100% on R/A; kl 11:38 BP 149 / 82; Pulse 89; Resp 18; Pulse Ox 100% on R/A; ld1 05:52 Body Mass Index 26.26 (83.00 kg, 177.8 cm) kl MDM: 09:25 Patient medically screened. rn 09:27 ED course: Consulted with Dr. Tripathi, agrees that weakness not explained by PAD. Spoke rn with patient myself, recommend MRI of brain and lumbar spine to rule out central cause. Dr. Tripathi states stents are MRI compatible, but MRI staff reports cant perform MRI if stents less than 6 weeks old, are 3 weeks old. . 11:13 Differential Diagnosis PAD, arterial occlusion, radiculopathy, CVA, TIA. Data reviewed: rn vital signs, nurses notes, lab test result(s), radiologic studies, CT scan, ultrasound, and as a result, I will discharge patient. Counseling: I had a detailed discussion with the patient and/or guardian regarding: the historical points, exam findings, and any diagnostic results supporting the discharge/admit diagnosis, lab results, radiology results, the need for outpatient follow up, to return to the emergency department if symptoms worsen or persist or if there are any questions or concerns that arise at home. Response to treatment: the patient's symptoms have mildly improved after treatment, and as a result, I will discharge patient. Special discussion: I discussed with the patient/guardian in detail that at this point there is no indication for admission to the hospital. It is understood, however, that if the symptoms persist or worsen the patient needs to return immediately for re-evaluation. Based on the history and exam findings, there is no indication for further emergent testing or inpatient evaluation. I discussed with the patient/guardian the need to see the neurologist for further evaluation of the symptoms. I discussed with the patient/guardian the need to see the primary care provider for further evaluation of the symptoms. Vascular. ED course: CT head/lumbar and CTA head/neck without acute occlusion, strength has improved, Dr. Tripathi states will see patient this Friday in clinic at 0830. Will dc home with return precautions.. 11:29 ED course: Results discussed with Dr. Tripathi, will see patient in clinic as already on rn anticoagulation. . 05/12 05:47 Order name: Basic Metabolic Panel; Complete Time: 07:32 kdr 05/12 05:47 Order name: CBC with Diff; Complete Time: 07:32 kdr 05/12 05:47 Order name: High Sensitivity Troponin; Complete Time: 07:32 kdr 05/12 05:47 Order name: Magnesium; Complete Time: 07:32 kdr 05/12 05:47 Order name: Protime (+inr); Complete Time: 07:32 kdr 05/12 05:47 Order name: Ptt, Activated; Complete Time: 07:32 kdr 05/12 05:47 Order name: Stroke CXR 1 View kdr 05/12 06:10 Order name: US LE Artery Uni Ltd; Complete Time: 07:53 kdr 05/12 07:18 Order name: Extremity Venous Uni Ltd; Complete Time: 07:53 EDMS 05/12 09:16 Order name: CT Head Brain wo Cont; Complete Time: 10:23 rn 05/12 09:30 Order name: CT Head Angio; Complete Time: 11:12 rn 05/12 09:30 Order name: Neck Angio CT; Complete Time: 11:12 rn 05/12 09:30 Order name: CT Lumbar Spine Wo Con; Complete Time: 10:23 rn 05/12 05:47 Order name: EKG; Complete Time: 05:48 kdr 05/12 05:47 Order name: Cardiac monitoring; Complete Time: 06:30 kdr 05/12 05:47 Order name: EKG - Nurse/Tech; Complete Time: 06:08 kdr 05/12 05:47 Order name: IV Saline Lock; Complete Time: 06:08 kdr 05/12 05:47 Order name: Labs collected and sent; Complete Time: 06:08 kdr 05/12 05:47 Order name: O2 Per Protocol; Complete Time: 06:30 kdr 05/12 05:47 Order name: O2 Sat Monitoring; Complete Time: 06:30 kdr Administered Medications: No medications were administered Disposition Summary: 05/12/23 11:15 Discharge Ordered Location: Home rn Problem: an ongoing problem rn Symptoms: have improved rn Condition: Stable rn Diagnosis - Atherosclerosis of [place] arteries of extremities with intermittent claudication, rn left leg - Paresthesia of skin rn Followup: rn - With: Private Physician - When: As needed - Reason: Recheck today's complaints, Re-evaluation by your physician Discharge Instructions: - Discharge Summary Sheet kl - Intermittent Claudication rn - Paresthesia rn - Peripheral Vascular Disease rn Forms: - SBAR form kl - Medication Reconciliation Form rn - Thank You Letter rn - Antibiotic product management intern - Prescription Opioid Use rn - [email or web address] rn - Work release form aa5 Signatures: Dispatcher [employer] Leticia Billings RN RN kl Rittger, Kevin, MD MD kdr Josiah Fried MD MD rn Bryson, James, RN RN jb4 Corrections: (The following items were deleted from the chart) 06:19 05:48 CT-STROKE BRAIN W/O CONTRAST+CT.RAD.BRZ ordered. EDMS EDMS 06:20 05:47 Stroke Swallow Screen ordered. kdr jb4 06:49 05:47 Accucheck ordered. kdr jb4 06:49 05:47 NPO ordered. kdr jb4 06:50 06:19 Head Brain Wo Cont ordered. EDMS EDMS 07:18 06:11 Extrem Venous W Compression Bib+US.RAD.BRZ ordered. EDMS EDMS
[2023-05-12 11:44] VITALS: TEMP 98.3
[2023-05-12 11:46] VITALS: O2SAT 100
[2023-05-12 11:48] VITALS: BP 149/82
--- NOTE | 2023-05-12 15:33 | RAD REPORT ---
EXAM DESCRIPTION: RAD - Chest Single View - 05/12/2023 6:10 am CLINICAL HISTORY: 62 years Male Altered sensation COMPARISON: None FINDINGS: Median sternotomy changes noted. Age-indeterminate defect of the inferiormost sternotomy wire. Lung volumes adequate. Cardiac silhouette is normal in size. No pneumothorax. No large pleural effusion. No focal consolidation. No acute bony finding. IMPRESSION: 1. No acute cardiopulmonary findings. 2. Median sternotomy changes noted. Age-indeterminate defect of the inferiormost sternotomy wire. Electronically signed by: Eliza Smith MD 05/12/2023 6:48 AM CDT Due to temporary technical issues with the PACS/Fluency reporting system, reports are being signed by the in house radiologist without review as a courtesy to ensure prompt reporting. The interpreting r adiologist is fully responsible for the content of the report.
--- NOTE | 2023-05-12 17:09 | EKG ---
Test Date: 2023-05-12 Test Time: 05:58:27 Retail Services Professional: CESAR MEASUREMENT RESULTS: Intervals: Rate: 98 VT: 238 QRSD: 84 QT: 348 QTc: 444 [place]: P: 21 VT: 238 QRS: 30 T: -1 INTERPRETIVE STATEMENTS: Sinus rhythm with 1st degree AV block Otherwise normal ECG Compared to ECG 07/17/2022 06:36:33 First degree AV block now present Electronically Signed On 05-12-23 17:09:02 CDT by Teofilo Cabrales
== END 2023-05-12 11:38 | disposition home or self-care (01) ==
LOC: ER 05:35
DX: I70.212 Atherosclerosis of native arteries of extremities with intermittent claudication, left leg (principal); I10 Essential (primary) hypertension; F17.220 Nicotine dependence, chewing tobacco, uncomplicated; Z79.01 Long term (current) use of anticoagulants
CPT/HCPCS: 93005; 85025; 80048; 36415; 83735; 85610; 85730; 84484; 72131; 70450; 70496; 70498; 71045; 93926; 93971; 99284; Q9967

== ENCOUNTER 2023-06-23 09:49 | Emergency (ER) | payer OTHER ==
--- OUTSIDE RECORDS SUMMARY | 2023-06-23 09:53 | XMS REPORT | Continuity of Care Document ---
:1960 Author Organization [facility] t Address [address] [place] [address] Care Team Providers Name Role Phone ESTELLA [...] Date Expiration Date S ource NINETY DEGREES [id number] 2021 2022 BENEFIT OON 00:00:00 00:00:00 Problems [...] 6-05 it y of on on 00:00: [address] Branch Allergies, Adverse Reactions, Alerts Allergy Allergy Status Severity Reaction(s) Onset Inactive Treating Comm ents Source Name Type Date Date Clinician NO KNOWN Drug Active Univers ALLERGIE Class ity of S [facility] Social History Social Habit Start Date Stop Date Quantity Comments Source History SDOH University o f Alcohol Frequency [place] [facility] History SDOH University o f Alcohol Std Drinks [place] [facility] History [facility] University o f Alcohol Binge [place] [facility] Exposure to 2022-07-21 2022-07-31 Not sure University SARS-CoV-2 (event) 00:00:00 08:37:00 [facility] Alcohol intake 2022-07-31 2022-07-31 Current drinker Unive rsity of 00:00:00 00:00:00 of alcohol [facility] (finding) Branch Cigarette 2018-04-07 2018-04-07 University of pack-years 00:00:00 00:00:00 [facility] Tobacco use and 2018-04-07 2018-04-07 User of Universit y of exposure 00:00:00 00:00:00 smokeless [facility] tobacco [place] Alcohol Comment 2018-04-07 2018-04-07 4-5 nightly Universi ty of 00:00:00 00:00:00 [facility] Cigarettes smoked 2018-04-07 2018-04-07 Univers ity of current (pack per 00:00:00 00:00:00 [facility] ) - Reported Branch History of tobacco 1988-04-07 Snuff User Univer sity of use 00:00:00 [facility] Sex Assigned At [birth year] Universit y of 00:00:00 00:00:00 [facility] Smoking Status Start Date Stop Date Source Ex-smoker 2018-04-07 00:00:00 2018-04-07 00:00:00 Universi ty of [facility] Medications Ordered Filled Start Stop Current Ordering [...] 08/03/22 at 1200, Routine clopidogreL 2021-11 Yes [id number] 75mg Take 1 Univers 75 mg 0-01 tablet by ity of tablet 00:00: mouth in [place] 00 the Medical morning. Branch clopidogreL 2021-11 Yes [id number] 75mg Take 1 Univers 75 mg 0-01 tablet by ity of tablet 00:00: mouth in [place] 00 the Medical morning. Branch metoprolol 0 Yes 25mg Take 25 mg U nivers tartrate 25 9-30 by mouth ity of mg tablet 16:20: in the [place] [address] morning Medical and 25 mg Branch in the evening. aspirin 81 0 Yes 81mg Take 81 mg U nivers mg chewable 9-30 by mouth ity of tablet 16:20: in the [place] [address] morning. Medical Branch lisinopriL- 0 Yes 1{tbl} Take 1 Un [place] hydrochloro 9-30 tablet by ity of thiazide 16:20: mouth in [place] 20-12.5 mg 13 the Medical per tablet morning. Bran h foLIC acid 0 Yes 1mg Take 1 mg Un cameron 1 mg tablet 9-30 by mouth ity of 16:20: in the [place] [address] morning. Medical Branch metoprolol 0 Yes 25mg Take 25 mg U nivers tartrate 25 9-30 by mouth ity of mg tablet 16:20: in the [place] [address] morning Medical and 25 mg Branch in the evening. aspirin 81 2021-0 Yes 81mg Take 81 mg U nivers mg chewable 9-30 by mouth ity of tablet 16:20: in the [place] [address] morning. Medical Branch lisinopriL- 0 Yes 1{tbl} Take 1 Un cameron hydrochloro 9-30 tablet by ity of thiazide 16:20: mouth in [place] 20-12.5 mg 13 the Medical per tablet morning. Bran h foLIC acid 2021-0 Yes 1mg Take 1 mg Un cameron 1 mg tablet 9-30 by mouth ity of 16:20: in the [place] [address] morning. Medical Branch omeprazole 2021-0 2022- No 20mg Take 20 mg Univers 20 mg 9-30 09-30 by mouth ity of capsule 14:23: 00:00 in the [place] 22 :00 morning. Medical Branch metFORMIN 2021- No 500mg Take 500 Un [place] 500 mg 08-02-30 mg by ity of tablet 14:23: 00:00 mouth in [place] 22 :00 the Medical morning Branch and 500 mg in the evening. Take with meals. levETIRAcet 2021- No 500mg Take 500 Univers am (KEPPRA) 08-02 mg by ity of 500 mg 14:23: 00:00 mouth in [place] tablet 22 :00 the Medical morning Branch and 500 mg in the evening. labetaloL 2021- No 20mg 20 mg, Unive rs (NORMODYNE) 08-02 Slow IV ity of injection 14:02: 16:27 Push, [place] 20 mg 00 :00 ONCE, 1 Medical dose, On [place] Fri08/02/22 at 0915, Routine lisinopriL Yes 20mg 20 mg, Unive rs (PRINIVIL,Z 08-02 Oral, ity of ESTRIL) 14:00: DAILY, [place] tablet 20 00 First dose Medi justa mg on Fri [place] 08/02/22 at 0900, Until Discontinu ed, Routine clopidogreL Yes 75mg 75 mg, Univ ers (PLAVIX) 75 08-02 Oral, ity of mg tablet 14:00: DAILY, [place] 75 mg 00 First dose Medical on Fri [place] 08/02/22 at 0900, Until Discontinu ed, Routine atorvastati Yes 80mg 80 mg, Univ ers n (LIPITOR) 08-02 Enteral, ity of tablet 80 02:00: QHS, First [place] mg 00 dose Medical (after Branch last modificati on) on [facility] 08/01/22 at 2100, Until Discontinu ed, Routine levETIRAcet 2021- No 500mg 500 mg, U nivers am (KEPPRA) 08-02 Oral, BID, i ty of tablet 500 01:00: 14:24 First dose [place] mg 00 :26 on [facility] 08/01/22 at Branch 2000, Until Discontinu ed, Routine pioglitazon Yes [id number] 15mg Take 1 Univers e 15 mg 9-30 tablet by ity of tablet 00:00: mouth in [place] 00 the Medical morning. Branch pioglitazon Yes [id number] 15mg Take 1 Univers e 15 mg 9-30 tablet by ity of tablet 00:00: mouth in [place] 00 the Medical morning. Branch atorvastati 2021- No [id number] 80mg Take 1 Univers n 80 mg 9-30 12-30 tablet ity of tablet 00:00: 05:59 through [place] 00 :00 enteral Medical tube at [place] bedtime for 90 days. metFORMIN 2021- No [id number] 1000mg Take 1 Univers 1,000 mg 9-30 12-30 tablet by ity o f tablet 00:00: 05:59 mouth in [place] 00 :00 the Medical morning Branch and 1 tablet in the evening. Take with meals. Do all this for 90 days. atorvastati 2021- No [id number] 80mg Take 1 Univers n 80 mg 9-30 12-30 tablet ity of tablet 00:00: 05:59 through [place] 00 :00 enteral Medical tube at [place] bedtime for 90 days. metFORMIN 2021- No [id number] 1000mg Take 1 Univers 1,000 mg 9-30 12-30 tablet by ity o f tablet 00:00: 05:59 mouth in [place] 00 :00 the Medical morning Branch and 1 tablet in the evening. Take with meals. Do all this for 90 days. gadoteridol 2021- No [id number] .2mL/kg 16.52 mL Univers (PROHANCE-2 08-01 (0.2 mL/kg i ty of 0 mL) 22:15: 22:15 ?82.6 kg), [place] injection 00 :00 Intravenou Medi justa 16.52 mL s, ONCE, 1 Branc h dose, On [facility] 08/01/22 at 1715, Routine aspirin Yes 81mg 81 mg, Univers chewable 08-01 Oral, ity of tablet 81 19:15: DAILY, [place] mg 00 First dose Medical on Viki [place] 08/01/22 at 1415, Until Discontinu ed, Routine thiamine Yes 100mg 100 mg, Unive rs (VITAMIN 9-29 Oral, ity of B1) tablet 14:00: DAILY, [place] 100 mg 00 First dose Medical on [facility] 08/01/22 at 0900, Until Discontinu ed, Routine foLIC acid Yes 1mg 1 mg, Univer s (FOLATE) 08-01 Oral, ity of tablet 1 mg 14:00: DAILY, [place] 00 First dose Medical on [facility] 08/01/22 at 0900, Until Discontinu ed, Routine foLIC acid No 1mg 1 mg, Unive rs (FOLATE) 08-01 Oral, ity of tablet 1 mg 14:00: 13:44 DAILY, [place] as 00 :59 First dose Medical on [facility] 08/01/22 at 0900, Until Discontinu ed, Routine atorvastati No 40mg 40 mg, Uni vers n (LIPITOR) 08-01 Enteral, ity of tablet 40 02:00: 17:13 QHS, First [place] mg 00 :21 dose on Medical [facility] 07/31/22 at 2100, Until Discontinu ed, Routine [...] dose [place] mg 00 :35 on Fri [facility] 07/31/22 at Branch 2000, Until Discontinu ed, Routine oxazepam Yes 15mg 15 mg, Univers (SERAX) 07-31 Oral, ity of capsule 15 21:37: Q4HPRN, [place] mg 28 Starting Medical on [facility] 07/31/22 at 1637, Until Discontinu ed, Routine, Only while awake for DBP equal to or greater than 100, HR equal to or greater than 100. sulfur 2021- No [id number] 5mL 5 mL, Univ ers hexafluorid 07-31 Intravenou i ty of e microsphr 20:15: 20:15 s, ONCE, 1 [place] (LUMASON) 00 :00 dose, On Medica l injection 5 Fri Branch mL 07/31/22 at 1515, Routine
space studies faculty member approving Restricted medication : BEAR SARKARLAWRENCE Saline Yes [id number] 6mL 6 mL, Unive rs Bubble 07-31 Injection, ity of Study 20:03: SEE-INSTRU [place] 03 CTIONS, Medical Starting Branch on Fri07/31/22 at 1503, Until Discontinu ed, Routine pantoprazol Yes 40mg 40 mg, Univ ers e 07-31 Oral, ity of (PROTONIX) 19:15: DAILY, [place] EC tablet 00 First dose Medi justa 40 mg on Fri Branch 07/31/22 at 1415, Until Discontinu ed, Routine acetaminoph Yes 650mg 650 mg, Un cameron en 07-31 Oral, ity of (TYLENOL) 19:08: Q6HPRN, [place] tablet 650 01 Starting Medic al mg on Fri Branch 07/31/22 at 1408, Until Discontinu ed, Routine, Pain (scale 1-3), Pain (scale 4-6), Temp > 38.5 C, Temp > 37.5 C NaCl 0.9% 2021- No 1000mL at 100 Uni vers (NS) IV 07-31 mL/hr, ity of infusion 17:15: 13:44 Intravenou [place] 1,000 mL 00 :59 s, [facility] CONTINUOUS Branch , Starting on Fri07/31/22 at 1215, Until Fri08/02/22 at 0844, JIM aspirin 2021- No 325mg 325 mg, Unive rs tablet 325 07-31 Oral, ity of mg 16:30: 16:46 ONCE, 1 [place] 00 :00 dose, On [facility] Wed Branch 07/31/22 at 1130, STAT ondansetron [...] 07/31/22 at 1115, STAT iopamidol 2021- No [id number] 100mL 100 mL, Univers (ISOVUE 07-31 Intravenou ity o f 370-500 mL) 14:04: 14:05 s, ONCE, 1 [place] injection 00 :00 dose, On Medica l 100 mL Wed Branch 07/31/22 at 0930, Routine NaCl 0.9% Yes 5mL 5 mL, Slow Un cameron (NS) 07-31 IV Push, ity of injection 5 13:45: PRN - SEE [place] mL 14 [facility] Medical NS, Branch Starting on Fri07/31/22 at 0845, Until Discontinu ed, 10 mL ondansetron No 4mg 4 mg, Slow Univers (ZOFRAN 04-09 IV Push, ity of (PF)) 15:45: 15:00 ONCE, 1 [place] injection 4 00 :00 dose, On Medi justa mg [facility] 04/09/22 Branch at 1045, Routine iopamidol 2021- No [id number] 50mL 50 mL, U nivers (ISOVUE 04-09 Intravenou ity o f 370-500 mL) 14:50: 14:51 s, ONCE, 1 [place] injection 00 :00 dose, On Medica l 50 mL [facility] 04/09/22 Branch at 1000, Routine NaCl 0.9% [...] Gustavo as mg 58 Starting Medical on [facility] 04/09/22 at 0935, Until Discontinu ed, Routine, Pain (scale 7-10) sodium Yes 5mL 5 mL, Univers chloride 04-09 Intravenou ity o f (NS) 14:30: s, PRN, [place] injection 5 37 Starting Medi justa mL on [facility] 04/09/22 at 0930, Until Discontinu ed, Routine, IV line flushing traMADoL 2021- No [id number] 100mg Take 1 Unive rs 100 mg 24 04-09 tablet by ity of hr tablet 00:00: 04:59 mouth [place] 00 :00 daily for Medical 7 days. Branch Indication s: acute pain losartan 50 Yes [id number] 50mg Take 1 Univers mg tablet 04-08 tablet by ity o f 00:00: mouth [place] 00 daily. Medical Branch losartan 50 2021- No [id number] 50mg Take 1 Univers mg tablet 04-08 tablet by ity of 00:00: 00:00 mouth [place] 00 :00 daily. Medical Branch Vital Signs Vital Name Observation Time Observation Value Comments Source Systolic blood 2022-08-02 15:39:00 182 mm[Hg] [facility] Diastolic blood 2022-08-02 15:39:00 97 mm[Hg] [facility] Heart rate 2022-08-02 15:39:00 79 /min [facility] Body temperature 2022-08-02 15:39:00 36.56 Neema [facility] Respiratory rate 2022-08-02 15:39:00 18 /min [facility] Oxygen saturation in 2022-08-02 15:39:00 99 /min [facility] Arterial blood by [facility] [place] [facility] Pulse oximetry Branch Body weight 2022-08-02 01:42:00 79.47 kg [facility] BMI 2022-08-02 01:42:00 25.14 kg/m2 [facility] Systolic blood 2022-04-09 14:34:00 132 mm[Hg] [facility] Diastolic blood 2022-04-09 14:34:00 94 mm[Hg] Unive [facility] Heart rate 2022-04-09 14:34:00 74 /min [facility] Body temperature 2022-04-09 14:34:00 36.22 Neema [facility] Respiratory rate 2022-04-09 14:34:00 18 /min [facility] Body weight 2022-04-09 14:34:00 82.555 kg [facility] BMI 2022-04-09 14:34:00 26.11 kg/m2 [facility] Oxygen saturation in 2022-04-09 14:34:00 100 /min [facility] Arterial blood by [facility] [place] [facility] Pulse oximetry [place] Procedures Procedure Date / Time Performing Clinician Source Performed BASIC METABOLIC PANEL 2022-08-02 10:34:00 Wendy Wagner [facility] (NA, K, CL, CO2, GLUCOSE, Medica l Branch BUN, CREATININE, CA) CBC WITH DIFF 2022-08-02 10:34:00 Wendy Wagner [facility] MR BRAIN W WO CONTRAST 2022-08-01 22:03:06 Wendy Wagner [facility] URINE DRUG (IMMUNOASSAY) 2022-08-01 18:25:00 Kadie Olvera [facility] - COMPREHENSIVE DRUG Medical [facility] SCREEN BLOOD CULTURE SCREEN 2022-08-01 18:21:00 Wendy [facility] BLOOD CULTURE SCREEN 2022-08-01 17:43:00 Wendy [facility] COMP. METABOLIC PANEL 2022-08-01 10:35:00 Wendy Wagner [facility] ([id number]) [facility] TRANSTHORACIC ECHO (TTE) 2022-07-31 20:02:00 Kadie Olvera [facility] COMPLETE W/ CONTRAST Medical [facility] URINALYSIS 2022-07-31 15:17:00 Mihir Sharma [place] [facility] CT ANGIOGRAM CHEST 2022-07-31 14:17:00 Mihir Sharma [facility] CT ANGIOGRAM 2022-07-31 14:17:00 Mihir Sharma [facility] ABDOMEN/PELVIS Medical Branch CT STROKE ANGIOGRAM HEAD 2022-07-31 14:16:00 Mihir Sharma [facility] CT STROKE ANGIOGRAM NECK 2022-07-31 14:16:00 Mihir Sharma [facility] CT STROKE HEAD WO 2022-07-31 13:56:00 Mihir Sharma [facility] CONTRAST [facility] TROPONIN I 2022-07-31 13:46:00 Mihir Sharma [facility] THYROID STIMULATING 2022-07-31 13:46:00 Kadie Olvera [facility] HORMONE [facility] Branch BASIC METABOLIC PANEL 2022-07-31 13:46:00 Mihir Sharma [facility] (NA, K, CL, CO2, GLUCOSE, Medica l Branch BUN, CREATININE, CA) LIPID PANEL ([id number])(TOTAL 2022-07-31 13:46:00 Kadie Olvera [facility] CHOLESTEROL, Medical Branch TRIGLYCERIDES, HDL) ETHANOL 2022-07-31 13:46:00 Mihir Sharma [facility] CBC WITHOUT DIFF 2022-07-31 13:46:00 Mihir Sharma [facility] GLYCOSYLATED HEMOGLOBIN 2022-07-31 13:46:00 May [facility] (A1C) [facility] PROTHROMBIN TIME / INR 2022-07-31 13:46:00 Mihir Sharma [facility] ACTIVATED PARTIAL 2022-07-31 13:46:00 Mihir Sharma [facility] THRMPLAS QUITA Medical [place] LOW-DENSITY LIPOPROTEIN, 2022-07-31 13:46:00 Kadie Olvera [facility] DIRECT Medical [place] COVID-19 (ID NOW RAPID 2022-07-31 13:46:00 Mihir Sharma [facility] TESTING) Medical Branch LAB ONLY COVID 2022-07-31 13:46:00 Mihir Sharma [facility] INTERPRETATION [facility] HB ECG ROUTINE & RHYTHM 2022-07-31 13:44:36 Mihir Sharma [facility] STRIP Medical Branch CONSENT/REFUSAL FOR 2022-07-31 13:28:04 Doctor Unassigned, [facility] DIAGNOSIS AND TREATMENT [place] [facility] [place] [facility] ADMISSION 2022-07-31 05:01:00 Doctor Taylor [facility] Name Medical [place] URINALYSIS 2022-04-09 15:11:00 Singer [facility] CT ABDOMEN PELVIS W 2022-04-09 14:56:45 Malka Mcgovern [facility] [place] CONTRAST [facility] Branch LIPASE 2022-04-09 14:36:00 Singer [facility] COMP. METABOLIC PANEL 2022-04-09 14:36:00 Singer Malka [facility] ([id number]) Medical [place] CBC WITH DIFF 2022-04-09 14:36:00 Singer [facility] NOTICE OF PRIVACY 2022-04-09 14:30:05 Doctor Taylor [facility] PRACTICES [place] [facility] [place] CONSENT/REFUSAL FOR 2022-04-09 14:29:07 Doctor Taylor [facility] DIAGNOSIS AND TREATMENT [facility] Encounters Start End Encounter Admission Attending Care Care Encounter Source Date/Time Date/Time Type Type Clinicians Facility Department ID 2022-08-05 2022-08-05 Transition MINESH Mac [id number] Univers 00:00:00 00:00:00 of Care Mihaela RAUSCH [id number] i ty [facility] [id number] [place] [id number] [facility] 403 Branch 2022-07-31 2022-08-02 Inpatient U FILIPE KSPATTI SBU [id number] Univers 08:34:00 16:00:00 PARAM ity [facility] 2022-07-31 2022-08-02 Hospital Mihir Sharma [id number] Univers 08:34:00 16:00:00 Encounter Param Dent [id number] ity [facility] [id number] Gustavo as [id number] [facility] 092 Branch 2022-04-09 2022-04-09 Emergency X SINGER KSPATTI ERT [id number] Univers 09:31:00 10:55:00 MALKA ity [facility] 2022-04-09 2022-04-09 Emergency Mcgovern, RUST [id number] Univers 09:31:00 10:55:00 Malka AGUIAR [id number] [facility] [id number] [facility] [id number] [place] [address] Branch Results Test Description Test Time Test Comments Results Result Comments Source BASIC METABOLIC PANEL (NA, K, CL, CO2, GLUCOSE, BUN, 2022-07 11:38:29 CREATININE, CA) Test Item Value Reference Range Interpretation Comme nts NA (test code = 5863441316) 138 mmol/L 135-145 K (test code = 3970918544) 4.1 mmol/L 3.5-5 CL (test code = 1090696641) 106 mmol/L 98-108 CO2 TOTAL (test code = 9864412113) 26 mmol/L 23-31 AGAP (test code = 9422398872) 2-16 BUN (test code = 3397700535) 16 mg/dL 7-23 GLUCOSE (test code = 0813062132) 153 mg/dL 70-110 H CREATININE (test code = 0.90 mg/dL 0.6-1.25 6760999932) CALCIUM (test code = 8836445507) 8.6 mg/dL 8.6-10.6 eGFR (test code = 3559918242) mL/min/1.73m2 JEY (test code = JEY) Association [...] tests). Lab Interpretation (test code = Abnormal 39259-9) [facility] WITH [id number] 10:59:07 Test Item Value Reference Range Interpretation Comments WBC (test code = See_Comment [Automated 6790-2) message] The sy stem which generated this result transmitted reference range : 4.20 - 10.70 10*3/?L. The reference range was not used to interpret this result as normal/abnormal . RBC (test code = See_Comment [Automated 049-8) message] The sy stem which generated this [...] (test code = 35.5 fL 38.5-51.6 L 17434-2) RDW-CV (test code = 11.2 % 12.1-15.4 L 788-0) PLT (test code = See_Comment [Automated 777-3) message] The sy stem which generated this result transmitted reference range : 150 - 328 10*3/ ?L. The reference r ruiz was not used to interpret this result as normal/abnormal . MPV (test code = 9.3 fL 9.8-13 L 02061-3) NRBC/100 WBC (test See_Comment [Automat ed code = 0828177385) message] The system which generated this result transmitted reference range : 0.0 - 10.0 /100 WBCs. The refer ence range was not u sed to interpret th is result as normal/abnormal . NRBC x10^3 (test code See_Comment [Auto mated = 0204882699) message] The s ystem which generated this result transmitted reference range : 10*3/?L. The reference range was not used to interpret this result as normal/abnormal . GRAN MAT (NEUT) % 59.0 % (test code = 770-8) IMM GRAN % (test code 0.40 % = 9508330909) LYMPH % (test code = 29.4 % 736-9) MONO % (test code = 6.7 % 5905-5) EOS % (test code = 3.9 % 713-8) BASO % (test code = 0.6 % 706-2) GRAN MAT x10^3(ANC) 3.18 10*3/uL 1.99-6.95 (test code = 5155264345) IMM GRAN x10^3 (test 0-0.06 code = 1501318091) LYMPH x10^3 (test code 1.58 10*3/uL 1.09-3.23 = 731-0) MONO x10^3 (test code 0.36 10*3/uL 0.36-1.02 = 742-7) EOS x10^3 (test code = 0.21 10*3/uL 0.06-0.53 711-2) BASO x10^3 (test code 0.03 10*3/uL 0.01-0.09 = 704-7) Lab Interpretation Abnormal (test code = 75755-9) [facility]. METABOLIC PANEL (39416)2022-08-01 11:39:32 Test Item Value Reference Range Interpretation Comments NA (test code = 136 mmol/L 135-145 1577813334) K (test code = 3.9 mmol/L 3.5-5 6554834436) CL (test code = 105 mmol/L 98-108 6886822535) CO2 TOTAL (test code = 27 mmol/L 23-31 7487221991) AGAP (test code = 2-16 1500516024) BUN (test code = 15 mg/dL 7-23 7479907464) GLUCOSE (test code = 131 mg/dL 70-110 H 6908832626) CREATININE (test code = 0.89 mg/dL 0.6-1.25 0362838909) TOTAL BILI (test code = 0.5 mg/dL 0.1-1.3 9502070709) CALCIUM (test code = 7.9 mg/dL 8.6-10.6 L 0766938268) T PROTEIN (test code = 6.4 g/dL 6.3-8.2 2780499631) ALBUMIN (test code = 3.5 g/dL 3.5-5 9641628449) ALK PHOS (test code = 60 U/L 34-122 0974229755) ALTv (test code = 16 U/L 5-50 2-6) AST(SGOT) (test code = 30 U/L 13-40 9336090708) eGFR (test code = mL/min/1.73m2 0817377183) JEY (test code = JEY) Association of [...] tests). Lab Interpretation Abnormal (test code = 52102-2) [facility] [id number] 05:25:31 Test Item Value Reference Range Interpretation Comments dLDL Chol (test code = 130 mg/dL See_Comment [Aut omated message] 66636-7) The system Dr. Z generated this result transmit li reference range : <=130. The refe rence range was not u sed to interpret th is result as normal/abnormal . Lab Interpretation (test Abnormal code = 88901-5) [facility]IP[facility] (98243)(TOTAL CHOLESTEROL, TRIGLYCERIDES, HDL)2022-08-01 00:25:45 Test Item Value Reference Range Interpretation Comments CHOL (test code = 237 mg/dL 120-200 H 9775514620) HDL (test code = 43 mg/dL See_Comment [Automated message] 0891152860) The system Dr. Z generated this result transmitted ref erence range: >=40. Th e reference range was not used to int erpret this result as normal/abnormal . HDLC RATIO (test code = See_Comment H [Au tomated message] 2036484087) The system Dr. Z generated this result transmitted ref erence range: <=5.0. T he reference range was not used to int erpret this result as normal/abnormal . TRIG (test code = 438 mg/dL 30-170 H 7717248561) LDL CHOL (test code = Unable to calculate 64672-7) LDL due to elev ated triglyceride le dave greater than 40 0 mg/dL. VLDL (test code = 88 mg/dL 5-60 H 3326091409) Lab Interpretation Abnormal (test code = 66045-5) [facility] (A1C)2022-07-31 23:21:43 Test Item Value Reference Range Interpretation Comments HGB A1C (test code = 8.8 % 4-5.7 H 4548-4) JEY (test code = JEY) Reference RangesNormal: <5.7%Prediabetes: 5.7 - 6.4%Diabetes: > 6.5% Lab Interpretation (test Abnormal code = 40828-2) [facility] Protocol - Transthoracic echo (TTE) 2022-07-31 21:10:12 Test Item Value Reference Range Interpretation Comments Height (test code = in 8143355270) Weight (test code = lbs 9730744966) Systolic BP (test code = mmHg 0718080508) Diastolic BP (test code mmHg = 8679065121) Heart Rate (test code = bpm 7548516806) LVOT stroke volume (test 57.20 cm3 code = 3578589363) EF(Teich) (test code = 51.60 % 2889598968) LVIDD (test code = 4.40 cm 3161706623) LVIDS (test code = 3.20 cm 3657694363) Left Ventricular End 42.5 mL Systolic Volume by Teichholz Method (test code = 4075405) Left Ventricular End 87.7 mL Diastolic Volume by Teichholz Method (test code = 3997248) IVS (test code = 0.95 cm 7653531184) LVPWD (test code = 0.99 cm 3291645824) LVOT diameter (test code 2.01 cm = 2461590827) LVOT area (test code = 3.20 cm2 2481564086) FS (test code = 26 % 4086413785) MV Peak E Dave (test code 76.7 cm/s = 6801791069) MV Peak A Dave (test code 108.4 cm/s = 2702350829) E/A ratio (test code = ratio 5484599537) E wave decelartion time 0.26 s (test code = 9858350805) LA volume (BP) (test 40.2 mL code = 3122230370) LVOT peak dave (test code 85.3 cm/s = 1623967616) LVOT mn grad (test code mmHg = 2094845382) LA size (test code = 4.6 cm 6306132196) LAV(MOD-sp2) (test code 41.90 mL = 9445594771) LAV(MOD-sp4) (test code 38.80 mL = 2631259010) Tapse (test code = 1.53 cm 0056753269) Aortic valve mean 75.4 cm/s velocity (test code = 4478519082) Ao peak dave (test code = 127.0 cm/s 7549649492) Ao VTI (test code = 22.0 cm 8124380387) AV LVOT peak gradient mmHg (test code = 1883932815) LVOT peak VTI (test code 18.1 cm = 0077562963) AV area by cont VTI 2.6 cm2 (test code = 9934442715) AV area peak dave (test 2.1 cm2 code = 2017996915) LV V1 mean (test code = 52.30 cm/s 4249435189) Ao max PG (test code = 6.50 mm[Hg] 5595596741) MV Prop V (test code = 45.30 cm/s 6706688694) Ao root diam (test code 3.20 cm = 0055655292) AV peak gradient (test mmHg code = 7154405689) AV valve area (test code 2.60 cm2 = 0875151322) AV mean gradient (test mmHg code = 3267696321) Aortic root (test code = 3.2 cm 5180627866) Ao root annulus (test 3.2 cm code = 4088299984) PW (test code = 0.99 cm 0.6-1.2 7539464498) EF - 2D (test code = 51.60 % 37399732) Interventricular Septum 0.95 cm Diastolic Thickness by 2D (test code = 3366578) LA Volume Index (BP) 20.0 mL/m2 (test code = 6266015827) BSA (test code = 2.01 m2 4490955876) A4C EF (test code = 63.50 % 3077181512) EF(sp4-el) (test code = 63.20 % 7379577600) SV(MOD-sp4) (test code = 56.60 mL 7332873062) SV(sp4-el) (test code = 56.40 mL 6711546258) LV Diastolic Volume (BP) 85.8 mL (test code = 6113184341) A2C EF (test code = 79.90 % 3340435919) EF(MOD-bp) (test code = 73.80 % 6858726934) EF(sp2-el) (test code = 80.70 % 0134035416) LV Systolic Volume (BP) 22.5 mL (test code = 2039169720) SV(MOD-bp) (test code = 63.30 mL 2138967329) SV(MOD-sp2) (test code = 63.70 mL 9189345421) EF (test code = 1350430611) Left Ventricular Stroke 63.3 mL Volume by 2-D Biplane-MOD (test code = 3875048) LV Diastolic Volume 42.7 mL/m2 Index (BP) (test code = 5224167217) LV Systolic Volume Index 11.2 mL/m2 (BP) (test code = 3467371072) Radiology Study observation (narrative) (test code = 27132-3) JEY (test code = JEY) ?Left?Ventricle: Left [...] contrast was performed. Patient exhibited sinus rhythm. [facility] [id number] 21:01:36 Test Item Value Reference Range Interpretation Comments TSH (test code = See_Comment Biotin has been 4385492227) reported to cau se a negative bias, interpret resul ts relative to mary talamantes's use of biotin. [Automated mess age] The system Dr. Z generated this result transmitted ref erence range: 0.45 - 4 .70 mIU/L. The refe rence range was not u sed to interpret this result as normal/abnor mal. Lab Interpretation (test Normal code = 68057-5) [facility] HospitalETHANOL2022-[facility] 14:53:34 ALCOHOL<10mg/dL07/31/2022 9:53 AM [facility]<10 Guocyqvr43-355 Toxic>100 Depression of CERTIFIED MEDICAL BILLER>400 Fatalities ReportedUnLake Granbury Medical CenterTroponin I - Code [id number] 14:15:41 Test Item Value Reference Interpretation Comments Range TROPONIN I (test 0.034 ng/mL See_Comment [Automated code = 3656750542) message] The system which generated this result [...] biotin. Lab Interpretation Normal (test code = 21484-5) [facility] Metabolic Panel (NA, K, CL, CO2, Glucose, BUN, Creatinine, CA) - Code [id number] 14:04:01 Test Item Value Reference Range Interpretation Comments NA (test code = 133 mmol/L 135-145 L 7191463376) K (test code = 4.7 mmol/L 3.5-5 9947173006) CL (test code = 95 mmol/L 98-108 L 4342003874) CO2 TOTAL (test code = 27 mmol/L 23-31 7278033500) AGAP (test code = 2-16 3560741740) BUN (test code = 18 mg/dL 7-23 1898580551) GLUCOSE (test code = 170 mg/dL 70-110 H 7475254656) CREATININE (test code = 1.06 mg/dL 0.6-1.25 7840940712) CALCIUM (test code = 10.1 mg/dL 8.6-10.6 3612561640) eGFR (test code = mL/min/1.73m2 8542054026) JEY (test code = JEY) Association of [...] tests). Lab Interpretation Abnormal (test code = 83814-9) [facility] HospitalaPTT - Code [id number] 14:02:15 Test Item Value Reference Range Interpretation Comments APTT Patient (test See_Comment [Automat ed code = 3173-2) message] The system which generated this result transmitted reference range : 23 - 38 Seconds . The reference range was not used to interpr et this result as normal/abnormal . JEY (test code = JEY) The [facility]UST patient population mean normal value for aPTT is 30 seconds. Lab Interpretation Normal (test code = 67078-2) [facility] HospitalProthrombin Time / INR - Code [id number] 13:59:58 Test Item Value Reference Range Interpretation Comments PROTIME PATIENT (test See_Comment [Auto mated message] code = 5964-2) The system [employer] generated this result transmitted ref erence range: 12.0 - 1 4.7 Seconds. The re ference range was not u sed to interpret this result as normal/abnor mal. INR (test code = 6301-6) Nor mal INR <1.1; Warfarin Therap eutic range 2.0 to 3. 0 or 2.5 to 3.5, dep ending upon the indica tions. Lab Interpretation (test Normal code = 51475-8) [facility] HospitalCBC without Diff - Code [id number] 13:53:59 Test Item Value Reference Range Interpretation Comments WBC (test code = 6690-2) See_Comment [A utomated message] The system Dr. Z generated this result transmit li reference range : 4.20 - 10.70 10*3/?L. The reference range was not used to interpret this result as normal/abnormal . RBC (test code = 789-8) See_Comment [Au tomated message] The system Dr. Z generated this result transmit li reference range [...] 777-3) See_Comment [Au tomated message] The system [facility] generated this result transmit li reference range : 150 - 328 10*3/?L. The reference range was not used to interpret this result as normal/abnormal . MPV (test code = 9.0 fL 9.8-13 L 64008-6) RDW-CV (test code = 11.1 % 12.1-15.4 L 788-0) RDW-SD (test code = 35.9 fL 38.5-51.6 L 65229-7) NRBC x10^3 (test code = See_Comment [Au tomated message] 2582362383) The system [facility] generated this result transmit li reference range : 10*3/?L. The reference range was not used to interpret this result as normal/abnormal . NRBC/100 WBC (test code See_Comment [Au tomated message] = 8559703217) The system [facility] generated this result transmit li reference range : 0.0 - 10.0 /100 WBC s. The reference r ruiz was not used to interpret this result as normal/abnormal . IPF % (test code = 8121479354) Lab Interpretation (test Abnormal code = 54886-8) [facility] HospitalComplete Metabolic [id number] 15:39:24 Test Item Value Reference Range Interpretation Comments NA (test code = 132 mmol/L 135-145 L 4489887462) K (test code = 4.9 mmol/L 3.5-5.0 5042610986) CL (test code = 94 mmol/L 98-108 L 9550768659) CO2 TOTAL (test code = 26 mmol/L 23-31 9800102064) AGAP (test code = 2-16 4454210985) BUN (test code = 20 mg/dL 7-23 5931493616) GLUCOSE (test code = 207 mg/dL 70-110 H 1945873886) CREATININE (test code = 1.17 mg/dL 0.60-1.25 6384225381) TOTAL BILI (test code = 0.9 mg/dL 0.1-1.4 8618120458) CALCIUM (test code = 9.2 mg/dL 8.6-10.6 8426733935) T PROTEIN (test code = 7.3 g/dL 6.3-8.2 7269728971) ALBUMIN (test code = 4.4 g/dL 3.5-5.0 9384248261) ALK PHOS (test code = 75 U/L 34-122 1916480301) ALTv (test code = 60 U/L 5-50 H 1742-6) AST(SGOT) (test code = 74 U/L 13-40 H 0560217677) eGFR (test code = mL/min/1.73m2 0824551052) JEY (test code = JEY) Association of [...] tests). Lab Interpretation Abnormal (test code = 23152-0) [facility] HospitalLipase, [id number] 15:39:03 Test Item Value Reference Range Interpretation Comments LIPASE (test code = 6110493051) 105 U/L 0-220 Lab Interpretation (test code = Normal 73340-3) [facility] HospitalCBC with [id number] 15:06:58 Test Item Value Reference Range Interpretation Comments WBC (test code = See_Comment [Automated 2118-2) message] The sy stem which generated this result transmitted reference range : 4.20 - 10.70 10*3/?L. The reference range was not used to interpret this result as normal/abnormal . RBC (test code = See_Comment [Automated 9-8) message] The sy stem which generated this [...] (test code = 36.6 fL 38.5-51.6 L 48327-4) RDW-CV (test code = 11.4 % 12.1-15.4 L 788-0) PLT (test code = See_Comment [Automated 417-3) message] The sy stem which generated this result transmitted reference range : 150 - 328 10*3/ ?L. The reference r ruiz was not used to interpret this result as normal/abnormal . MPV (test code = 9.0 fL 9.8-13.0 L 59674-8) NRBC/100 WBC (test See_Comment [Automat ed code = 3622854625) message] The system which generated this result transmitted reference range : 0.0 - 10.0 /100 WBCs. The refer ence range was not u sed to interpret th is result as normal/abnormal . NRBC x10^3 (test code <0.01 See_Comment [Auto mated = 2126938536) message] The s ystem which generated this result transmitted reference range : 10*3/?L. The reference range was not used to interpret this result as normal/abnormal . GRAN MAT (NEUT) % 65.3 % (test code = 770-8) IMM GRAN % (test code 0.60 % = 1707090364) LYMPH % (test code = 23.3 % 736-9) MONO % (test code = 5.9 % 5905-5) EOS % (test code = 3.9 % 713-8) BASO % (test code = 1.0 % 706-2) GRAN MAT x10^3(ANC) 4.40 10*3/uL 1.99-6.95 (test code = 6195899843) IMM GRAN x10^3 (test 0.04 10*3/uL 0.00-0.06 code = 5436092246) LYMPH x10^3 (test code 1.57 10*3/uL 1.09-3.23 = 731-0) MONO x10^3 (test code 0.40 10*3/uL 0.36-1.02 = 742-7) EOS x10^3 (test code = 0.26 10*3/uL 0.06-0.53 711-2) BASO x10^3 (test code 0.07 10*3/uL 0.01-0.09 = 704-7) Lab Interpretation Abnormal (test code = 47820-2) [facility]"
[2023-06-23 10:31] LABS: Absolute Lymphocytes (CBC) 1.6 K/uL (0.7-4.9); Hematocrit 38.8 % (39.6-49.0); Lymphocytes % 26.1 % (15.3-44.8); MCV 91.2 fL (80-100); MPV 6.8 fL (7.6-11.3); Platelets 242 thou/uL (152-406); RBC Red Blood Cell Count 4.26 M/uL (4.33-5.43)
[2023-06-23] MEDS ORDERED: ONDANSETRON 4 MG/2 ML VIAL ONE (10:39)
[2023-06-23] MEDS ORDERED: NA CHLORIDE 0.9% 1,000 ML ONE (10:39)
[2023-06-23] MEDS ORDERED: MORPHINE 4 MG/ML SYR ONE (10:39)
[2023-06-23 10:51] LABS: Albumin 3.7 g/dL (3.4-5.0); Bilirubin Total 0.5 mg/dL (0.2-1.0); Potassium 4.5 mEq/L (3.5-5.1); Protein, Total 7.5 g/dL (6.4-8.2)
[2023-06-23] MEDS ORDERED: DIAZEPAM 5 MG TABLET ONE (11:33)
[2023-06-23] MEDS ORDERED: HYDROCODONE/APAP 7.5/325 MG TAB ONE (11:35)
--- NOTE | 2023-06-23 11:35 | RAD REPORT ---
EXAM DESCRIPTION: US - Lower Extremity Arterial Bilat - 06/23/2023 11:08 am CLINICAL HISTORY: Pain left leg COMPARISON: 05/12/2023 FINDINGS: The common femoral, superficial femoral and popliteal arteries bilaterally demonstrate bip hasic waveforms Monophasic, slow flow present in the left posterior tibial artery. Monophasic flow is present in the dorsalis pedis artery on the left as well. Biphasic flow present within the right posterior tibial and dorsalis pedis arteries. IMPRESSION: Moderate peripheral vascular disease with monophasic and diminished flow in the left pos terior tibial and, to a a lesser extend, dorsalis pedis arteries.
--- NOTE | 2023-06-23 13:19 | ER ---
Nurse's Notes [facility] Name: Oh Roberts Age: 62 yrs Sex: Male : 1960 Arrival Date: 06/23/2023 Time: 09:49 Bed 12 Private MD: Diagnosis: Peripheral vascular disease, unspecified;Unspecified symptoms and signs involving the musculoskeletal system;Hypo-osmolality and hyponatremia;Unspecified kidney failure Presentation: 06/23 10:01 Chief complaint: Patient states: B leg pains, worse on the L since yesterday. Over did ll1 it in the heat yesterday with broken down vehicle. Coronavirus screen: Client denies travel out of the [place] in the last 14 days. At this time, the client does not indicate any symptoms associated with coronavirus-19. Ebola Screen: Patient denies travel to an Ebola-affected area in the 21 days before illness onset. Initial Sepsis Screen: Does the patient meet any 2 criteria? No. Patient's initial sepsis screen is negative. Does the patient have a suspected source of infection? Yes: Other: B leg pains. Risk Assessment: Do you want to hurt yourself or someone else? Patient reports no desire to harm self or others. Onset of symptoms was June 22, 2023. 10:01 Method Of Arrival: Ambulatory ll1 10:01 Acuity: LUIS M 3 ll1 Triage Assessment: 10:01 General: Appears uncomfortable, Behavior is calm, cooperative, appropriate for age. ll1 Pain: Complains of pain in right leg and left leg Pain currently is 10 out of 10 on a pain scale. Quality of pain is described as aching, throbbing. Musculoskeletal: Circulation, motion, and sensation intact. Capillary refill < 3 seconds. Historical: - Allergies: 10:00 No Known Allergies; ll1 - PMHx: 10:00 aortic aneurism \T\ repair; Hypertension; PVD; stroke 2003; TIA; ll1 - PSHx: 10:00 aoritic aneurism \T\ repair; Left ankle; right leg stent; ll1 - Immunization history:: Adult Immunizations up to date. - Social history:: Smoking status: Patient reports use of chewing tobacco. Patient denies any tobacco usage or history of. - Family history:: not pertinent. Screenin:11 [facility] ED Fall Risk Assessment (Adult) Impaired Gait Yes (1 pt) Score/Fall Risk Level ll1 0 - 2 = Low Risk Oriented to surroundings, Maintained a safe environment, Educated pt \T\ family on fall prevention, incl call for assistance when getting out of bed, Hourly rounding (assess needs \T\ fall precautionary measures) done. Abuse screen: Denies threats or abuse. Nutritional screening: No deficits noted. Tuberculosis screening: No symptoms or risk factors identified. Assessment: 13:34 Reassessment: No changes from previously documented assessment. Patient and/or family mb9 updated on plan of care and expected duration. Pain level reassessed. Patient is alert, oriented x 3, equal unlabored respirations, skin warm/dry/pink. Vital Signs: 10:01 BP 170 / 85; Pulse 82; Resp 17; Temp 97.3; Pulse Ox 100% ; Weight 83.01 kg; Height 5 ll1 ft. 10 in. ; Pain 9/10; 13:34 BP 161 / 93; Pulse 74; Resp 16; Pulse Ox 100% on R/A; mb9 10:01 Body Mass Index 26.26 (83.01 kg, 177.8 cm) ll1 10:01 Pain Scale: Adult ll1 [place] Coma Score: 10:33 Eye Response: spontaneous(4). Motor Response: obeys commands(6). Verbal Response: gaviota oriented(5). Total: 15. ED Course: 09:51 Patient arrived in ED. rg4 09:52 Sg Palm MD is Attending Physician. gaviota 10:00 Arm band placed on. ll1 10:02 Triage completed. ll1 10:12 Patient has correct armband on for positive identification. Bed in low position. Call ll1 light in reach. 10:22 Missed attempt(s): 22 gauge in right antecubital area. Bleeding controlled, band aid ll1 applied, catheter tip intact. 10:22 Initial lab(s) drawn, by me, sent to lab. ll1 10:24 Keith Goldman RN is Primary Nurse. ll1 11:10 US Lower Extremity Arterial Bilateral In Process Unspecified. EDMS 13:17 Teofilo Cabrales MD is Referral Physician. gaviota 13:19 No provider procedures requiring assistance completed. IV discontinued, intact, mb9 bleeding controlled, No redness/swelling at site. Pressure dressing applied. Administered Medications: 10:45 Drug: NS 0.9% IV 1000 ml Route: IV; Rate: 1 bolus; Site: right forearm; jl7 10:45 Drug: morphine IVP or IV 4 mg Route: IVP; Infused Over: 4 mins; Site: right forearm; jl7 10:45 Drug: Ondansetron IVP 4 mg Route: IVP; Site: right forearm; jl7 11:20 Drug: Diazepam PO 5 mg Route: PO; jl7 Medication: 10:12 VIS not applicable for this client. ll1 Outcome: 13:18 Discharge ordered by . gaviota 13:34 Discharged to home ambulatory. constantino 13:34 Condition: stable 13:34 Discharge instructions given to patient, Instructed on discharge instructions, follow up and referral plans. Demonstrated understanding of instructions, follow-up care, medications, Prescriptions given X 2. 13:36 Patient left the ED. mb9 Signatures: Dispatcher [employer] EDMS Sg Palm MD MD cha Garcia, Rubi rg4 Eddie Vega RN RN jl7 Keiht Goldman RN RN 1 Kathy Clemens, RN RN mb9 Corrections: (The following items were deleted from the chart) 11:50 11:41 NS 0.9% IV 1000 ml IV at 1 bolus in right forearm jl7 jl7
--- NOTE | 2023-06-23 13:19 | EDPHYS ---
Physician Documentation [facility] Name: Oh Roberts Age: 62 yrs Sex: Male : 1960 Arrival Date: 06/23/2023 Time: 09:49 Bed 12 Private MD: MAXWELL Physician Sg Palm HPI: 06/23 10:33 This 62 yrs old Male presents to ER via Ambulatory with complaints of Leg gaviota Pain. 10:33 The patient presents with decreased range of motion, pain, that is acute. The gaviota complaints affect the right leg and left leg. Context: The problem was sustained outdoors. Onset: The symptoms/episode began/occurred yesterday. Modifying factors: The symptoms are alleviated by remaining still, the symptoms are aggravated by movement, weight bearing, bending knee. Associated signs and symptoms: The patient has no apparent associated signs or symptoms. Treatment prior to arrival includes: no previous treatment. The patient has experienced similar episodes in the past, a few times. Historical: - Allergies: 10:00 No Known Allergies; ll1 - PMHx: 10:00 aortic aneurism \T\ repair; Hypertension; PVD; stroke 2003; TIA; ll1 - PSHx: 10:00 aoritic aneurism \T\ repair; Left ankle; right leg stent; ll1 - Immunization history:: Adult Immunizations up to date. - Social history:: Smoking status: Patient reports use of chewing tobacco. Patient denies any tobacco usage or history of. - Family history:: not pertinent. ROS: 10:33 Constitutional: Negative for fever, chills, and weight loss, Eyes: Negative for injury, gaviota pain, redness, and discharge, ENT: Negative for injury, pain, and discharge, Neck: Negative for injury, pain, and swelling, Cardiovascular: Negative for chest pain, palpitations, and edema, Respiratory: Negative for shortness of breath, cough, wheezing, and pleuritic chest pain, Abdomen/GI: Negative for abdominal pain, nausea, vomiting, diarrhea, and constipation, Back: Negative for injury and pain, : Negative for injury, bleeding, discharge, and swelling, Skin: Negative for injury, rash, and discoloration, Neuro: Negative for headache, weakness, numbness, tingling, and seizure, Psych: Negative for depression, anxiety, suicide ideation, homicidal ideation, and hallucinations, Allergy/Immunology: Negative for hives, rash, and allergies, Endocrine: Negative for neck swelling, polydipsia, polyuria, polyphagia, and marked weight changes, Hematologic/Lymphatic: Negative for swollen nodes, abnormal bleeding, and unusual bruising. 10:33 MS/extremity: Positive for decreased range of motion, pain, of the right leg and left leg. 10:38 MS/extremity: Positive for of the right leg and left leg. gaviota Exam: 10:33 Constitutional: This is a well developed, well nourished patient who is awake, alert, gaviota and in no acute distress. Head/Face: Normocephalic, atraumatic. Eyes: Pupils equal round and reactive to light, extra-ocular motions intact. Lids and lashes normal. Conjunctiva and sclera are non-icteric and not injected. Cornea within normal limits. Periorbital areas with no swelling, redness, or edema. ENT: Nares patent. No nasal discharge, no septal abnormalities noted. Tympanic membranes are normal and external auditory canals are clear. Oropharynx with no redness, swelling, or masses, exudates, or evidence of obstruction, uvula midline. Mucous membranes moist. Neck: Trachea midline, no thyromegaly or masses palpated, and no cervical lymphadenopathy. Supple, full range of motion without nuchal rigidity, or vertebral point tenderness. No Meningismus. Chest/axilla: Normal chest wall appearance and motion. Nontender with no deformity. No lesions are appreciated. Cardiovascular: Regular rate and rhythm with a normal S1 and S2. No gallops, murmurs, or rubs. Normal PMI, no JVD. No pulse deficits. Respiratory: Lungs have equal breath sounds bilaterally, clear to auscultation and percussion. No rales, rhonchi or wheezes noted. No increased work of breathing, no retractions or nasal flaring. Abdomen/GI: Soft, non-tender, with normal bowel sounds. No distension or tympany. No guarding or rebound. No evidence of tenderness throughout. Male : Normal genitalia with no discharge or lesions. Neuro: Awake and alert, GCS 15, oriented to person, place, time, and situation. Cranial nerves II-XII grossly intact. Motor strength 5/5 in all extremities. Sensory grossly intact. Cerebellar exam normal. Normal gait. Psych: Awake, alert, with orientation to person, place and time. Behavior, mood, and affect are within normal limits. 10:33 Back: ROM is painful, normal spinal alignment noted, CVA tenderness, is absent, vertebral tenderness, is appreciated at L3 and lumbar spine. Vital Signs: 10:01 BP 170 / 85; Pulse 82; Resp 17; Temp 97.3; Pulse Ox 100% ; Weight 83.01 kg; Height 5 ll1 ft. 10 in. ; Pain 9/10; 13:34 BP 161 / 93; Pulse 74; Resp 16; Pulse Ox 100% on R/A; mb9 10:01 Body Mass Index 26.26 (83.01 kg, 177.8 cm) ll1 10:01 Pain Scale: Adult ll1 [place] Coma Score: 10:33 Eye Response: spontaneous(4). Motor Response: obeys commands(6). Verbal Response: gaviota oriented(5). Total: 15. MDM: 09:52 Patient medically screened. gaviota 10:36 Differential diagnosis: closed fracture, contusion, tendonitis. Data reviewed: vital gaviota signs, nurses notes, lab test result(s), radiologic studies, CT scan. Consideration of Admission/Observation Escalation of care including admission/observation considered. I considered the following discharge prescriptions or medication management in the emergency department Medications were administered in the Emergency Department. See MAR. Test considered but Not performed: EKG: us venous doppler. Care significantly affected by the following chronic conditions: Hypertension, cad, pvd, cva. Counseling: I had a detailed discussion with the patient and/or guardian regarding the historical points, exam findings, and any diagnostic results supporting the discharge/admit diagnosis, lab results, radiology results. 06/23 10:15 Order name: CBC with Diff; Complete Time: 12:24 gaviota 06/23 10:15 Order name: Comprehensive Metabolic Panel; Complete Time: 12:24 gaviota 06/23 10:15 Order name: CPK; Complete Time: 12:24 [facility] 06/23 10:15 Order name: US Lower Extremity Arterial Bilateral; Complete Time: 12:24 gaviota Administered Medications: 10:45 Drug: NS 0.9% IV 1000 ml Route: IV; Rate: 1 bolus; Site: right forearm; jl7 10:45 Drug: morphine IVP or IV 4 mg Route: IVP; Infused Over: 4 mins; Site: right forearm; jl7 10:45 Drug: Ondansetron IVP 4 mg Route: IVP; Site: right forearm; jl7 11:20 Drug: Diazepam PO 5 mg Route: PO; jl7 Disposition Summary: 06/23/23 13:18 Discharge Ordered Location: Home gaviota Problem: new gaviota Symptoms: have improved gaviota Condition: Stable gaviota Diagnosis - Peripheral vascular disease, unspecified gaviota - Unspecified symptoms and signs involving the musculoskeletal system gaviota - Hypo-osmolality and hyponatremia gaviota - Unspecified kidney failure gaviota Followup: gaviota - With: Private Physician - When: 2 - 3 days - Reason: Recheck today's complaints, Continuance of care, Re-evaluation by your physician Followup: gaviota - With: Teofilo Cabrales MD - When: 2 - 3 days - Reason: Recheck today's complaints, Re-evaluation by your physician Discharge Instructions: - Discharge Summary Sheet gaviota - Hyponatremia gaviota - Peripheral Vascular Disease gaviota - Hyponatremia, [id number] gaviota - Peripheral Vascular Disease, Hnif-wb-Sank gaviota - Chronic Kidney Disease, Adult, Mtcv-tm-Ouzm [facility] Forms: - Medication Reconciliation Form gaviota - Thank You Letter gaviota - Antibiotic Education gaviota - Prescription Opioid Use gaviota - Patient Portal Instructions gaviota - Leadership Thank You Letter gaviota - Work release form mb9 Prescriptions: - acetaminophen-codeine 300-30 mg Oral tablet - take 2 tablet by ORAL route every 6 hours as needed for pain; 20 tablet; [facility] Refills: 0, Product Selection Permitted - Valium 5 mg Oral Tablet - take 1 tablet by ORAL route every 8 hours As needed; 20 tablet; Refills: 0, [facility] Product Selection Permitted Signatures: Dispatcher [employer] Sg Ramos MD MD cha Leal, Jahala, RN RN jl7 Keith Goldman RN RN ll1
[2023-06-23 13:49] VITALS: TEMP 97.3; O2SAT 100
[2023-06-23 13:51] VITALS: BP 161/93
== END 2023-06-23 13:36 | disposition home or self-care (01) ==
LOC: ER 09:49
DX: I73.9 Peripheral vascular disease, unspecified (principal); R29.91 Unspecified symptoms and signs involving the musculoskeletal system; M79.605 Pain in left leg; M79.604 Pain in right leg; E87.1 Hypo-osmolality and hyponatremia; N19 Unspecified kidney failure; F17.220 Nicotine dependence, chewing tobacco, uncomplicated
CPT/HCPCS: 85025; 36415; 82550; 80053; 93925; 96375; 96374; 99284; J2405; J7030

== ENCOUNTER → 2023-12-04 | Emergency (ER) | payer OTHER ==
[~2023-12-04] MED LIST: FOLIC ACID 5 MG/ML VIAL ONE; HYDRALAZINE HCL 20 MG/ML VIAL ONE; NA CHLORIDE 0.9% 1,000 ML ONE; TENECTEPLASE 50 MG/10 ML VIAL IV ONE
--- OUTSIDE RECORDS SUMMARY | 2023-12-04 06:33 | XMS REPORT | Continuity of Care Document ---
Author Name Unknown Address [address] [facility]. [address] [place] [address] [facility] Address [address] [facility] [address] [place] [address] Care Team Providers Care Street Commissioner Name Role Phone ESTELLA BENITEZ Primary Care Physician Unavailkaye Mac RN, Mihaela Carpenter Attending Clinician [phone] PARAM DENT Attending Clinician Unavailable Mihir Sharma MD Attending Clinician [phone] Param Dent MD Attending Clinician [phone] MALKA MCGOVERN Attending Clinician Unavailable Malka Mcgovern DO Attending Clinician [phone] PARAM DENT Admitting Clinician Unavailable Param Dent MD Admitting Clinician [phone] MALKA MCGOVERN Admitting Clinician Unavailable Payers Payer Name Policy Type Policy Number Effective Date Expirati on Date Source [employer] OON [id number] 2021 00:00:00 2022 00:00:00 Problems Condition Name Condition Details Condition Category Status Onset Date Resolution Date Last Treatment Date Treating Clinician Comments Source Stroke-lik e symptoms Stroke-lik e symptoms Disease Active 07-31 00:00: 00 [facility] Type 2 diabetes mellitus without complicati on, without long-term current use of insulin Type 2 diabetes mellitus without complicati on, without long-term current use of insulin Disease Active 04-09 00:00: 00 [facility] Essential hypertensi on Essential hypertensi on Disease Active 04-07 00:00: 00 [facility] Allergies, Adverse Reactions, Alerts Allergy Name Allergy Type Status Severity Reaction(s) Onset Date Inactive Date Treating Clinician Comments Source NO KNOWN ALLERGIE S Drug Class Active [facility] Social History Social Habit Start Date Stop Date Quantity Comments Source History SDOH Alcohol Frequency [facility] History SDOH Alcohol Std Drinks [facility] History SDOH Alcohol Binge [facility] Exposure to SARS-CoV-2 (event) 2022-07-21 00:00:00 2022-07-31 08:37:00 Not sure [facility] Alcohol intake 2022-07-31 00:00:00 2022-07-31 00:00:00 Current drinker of alcohol (finding) [facility] Cigarette pack-years 2018-04-07 00:00:00 2018-04-07 00:00:00 [facility] Tobacco use and exposure 2018-04-07 00:00:00 2018-04-07 00:00:00 User of smokeless tobacco [facility] Alcohol Comment 2018-04-07 00:00:00 2018-04-07 00:00:00 4-5 nightly [facility] Cigarettes smoked current (pack per day) - Reported 2018-04-07 00:00:00 2018-04-07 00:00:00 [facility] History of tobacco use 1988-04-07 00:00:00 Snuff User [facility] Sex Assigned At 1960 00:00:00 1960 00:00:00 [facility] Smoking Status Start Date Stop Date Source Ex-smoker 2018-04-07 00:00:00 2018[facility] Ordered Medication Name Filled Medication Name Start Date Stop Date Current Medication? Ordering Clinician Indication Dosage Frequency Signature (SIG) Comments Components Source oxazepam (SERAX) capsule 15 mg 2021-11 0-01 05:00: 00 08-04 04:59 :00 No 15mg 15 mg, Oral, Q12H TAPER, 2 doses, First dose on 08/03/22 at 0000, Last dose on [facility] 08/03/22 at 1200, Routine [facility] clopidogreL 75 mg tablet 2021-11 00:00: 00 Yes [id number] 75mg Take 1 tablet by mouth in the morning. [facility] clopidogreL 75 mg tablet 2021-11 00:00: 00 Yes [id number] 75mg Take 1 tablet by mouth in the morning. [facility] metoprolol tartrate 25 mg tablet 08-02 16:20: 13 Yes 25mg Take 25 mg by mouth in the morning and 25 mg in the evening. [facility] aspirin 81 mg chewable tablet 08-02 16:20: 13 Yes 81mg Take 81 mg by mouth in the morning. [facility] lisinopriL- hydrochloro thiazide 20-12.5 mg per tablet 08-02 16:20: 13 Yes 1{tbl} Take 1 tablet by mouth in the morning. [facility] foLIC acid 1 mg tablet 08-02 16:20: 13 Yes 1mg Take 1 mg by mouth in the morning. [facility] metoprolol tartrate 25 mg tablet 08-02 16:20: 13 Yes 25mg Take 25 mg by mouth in the morning and 25 mg in the evening. [facility] aspirin 81 mg chewable tablet 08-02 16:20: 13 Yes 81mg Take 81 mg by mouth in the morning. [facility] lisinopriL- hydrochloro thiazide 20-12.5 mg per tablet 08-02 16:20: 13 Yes 1{tbl} Take 1 tablet by mouth in the morning. [facility] foLIC acid 1 mg tablet 08-02 16:20: 13 Yes 1mg Take 1 mg by mouth in the morning. [facility] omeprazole 20 mg capsule 08-02 14:23: 22 08-02 00:00 :00 No 20mg Take 20 mg by mouth in the morning. [facility] metFORMIN 500 mg tablet 08-02 14:23: 22 08-02 00:00 :00 No 500mg Take 500 mg by mouth in the morning and 500 mg in the evening. Take with meals. [facility] levETIRAcet am (KEPPRA) 500 mg tablet 08-02 14:23: 22 08-02 00:00 :00 No 500mg Take 500 mg by mouth in the morning and 500 mg in the evening. [facility] labetaloL (NORMODYNE) injection 20 mg 08-02 14:02: 00 08-02 16:27 :00 No 20mg 20 mg, Slow IV Push, ONCE, 1 dose, On Fri08/02/22 at 0915, Routine [facility] lisinopriL (PRINIVIL,Z ESTRIL) tablet 20 mg 08-02 14:00: 00 Yes 20mg 20 mg, Oral, DAILY, First dose on Fri08/02/22 at 0900, Until Discontinu ed, Routine [facility] clopidogreL (PLAVIX) 75 mg tablet 75 mg 08-02 14:00: 00 Yes 75mg 75 mg, Oral, DAILY, First dose on Fri08/02/22 at 0900, Until Discontinu ed, Routine [facility] atorvastati n (LIPITOR) tablet 80 mg 08-02 02:00: 00 Yes 80mg 80 mg, Enteral, QHS, First dose (after last modificati on) on Fri08/01/22 at 2100, Until Discontinu ed, Routine [facility] levETIRAcet am (KEPPRA) tablet 500 mg 08-02 01:00: 00 08-02 14:24 :26 No 500mg 500 mg, Oral, BID, First dose on Fri08/01/22 at 2000, Until Discontinu ed, Routine [facility] pioglitazon e 15 mg tablet 08-02 00:00: 00 Yes [id number] 15mg Take 1 tablet by mouth in the morning. [facility] pioglitazon e 15 mg tablet 08-02 00:00: 00 Yes [id number] 15mg Take 1 tablet by mouth in the morning. [facility] atorvastati n 80 mg tablet 08-02 00:00: 00 11-01 05:59 :00 No [id number] 80mg Take 1 tablet through enteral tube at bedtime for 90 days. [facility] metFORMIN 1,000 mg tablet 08-02 00:00: 11-01 05:59 :00 No [id number] 1000mg Take 1 tablet by mouth in the morning and 1 tablet in the evening. Take with meals. Do all this for 90 days. [facility] atorvastati n 80 mg tablet 08-02 00:00: 00 11-01 05:59 :00 No [id number] 80mg Take 1 tablet through enteral tube at bedtime for 90 days. [facility] metFORMIN 1,000 mg tablet 08-02 00:00: 00 11-01 05:59 :00 No [id number] 1000mg Take 1 tablet by mouth in the morning and 1 tablet in the evening. Take with meals. Do all this for 90 days. [facility] gadoteridol (PROHANCE-2 0 mL) injection 16.52 mL 08-01 22:15: 00 08-01 22:15 :00 No [id number] .2mL/kg 16.52 mL (0.2 mL/kg ?82.6 kg), Intravenou s, ONCE, 1 dose, On Viki 08/01/22 at 1715, Routine [facility] aspirin chewable tablet 81 mg 08-01 19:15: 00 Yes 81mg 81 mg, Oral, DAILY, First dose on Viki 08/01/22 at 1415, Until Discontinu ed, Routine [facility] thiamine (VITAMIN B1) tablet 100 mg 08-01 14:00: 00 Yes 100mg 100 mg, Oral, DAILY, First dose on Viki 08/01/22 at 0900, Until Discontinu ed, Routine [facility] foLIC acid (FOLATE) tablet 1 mg 08-01 14:00: 00 Yes 1mg 1 mg, Oral, DAILY, First dose on Fri08/01/22 at 0900, Until Discontinu ed, [facility] 1 mg 08-01 14:00: 00 08-02 13:44 :59 No 1mg 1 mg, Oral, DAILY, First dose on Fri08/01/22 at 0900, Until Discontinu ed, Routine [facility] atorvastati n (LIPITOR) tablet 40 mg 08-01 02:00: 00 08-01 17:13 :21 No 40mg 40 mg, Enteral, QHS, First dose on Fri07/31/22 at 2100, Until Discontinu ed, Rout[facility] heparin (porcine) injection 5,000 Units 08-01 01:00: 00 Yes 5000U 5,000 Units, Subcutaneo us, Q12H, First dose on Fri07/31/22 at 2000, Until Discontinu ed, [facility] levETIRAcet am (KEPPRA) tablet 500 mg 08-01 01:00: 00 08-01 19:50 :35 No 500mg 500 mg, Oral, BID, First dose on Fri07/31/22 at 2000, Until Discontinu ed, Routine [facility] oxazepam (SERAX) capsule 15 mg 07-31 21:37: 28 Yes 15mg 15 mg, Oral, Q4HPRN, Starting on Fri07/31/22 at 1637, Until Discontinu ed, Routine, Only while awake for DBP equal to or greater than 100, HR equal to or greater than 100. [facility] ity [facility] sulfur hexafluorid e microsphr (LUMASON) injection 5 mL 07-31 20:15: 00 07-31 20:15 :00 No [id number] 5mL 5 mL, Intravenou s, ONCE, 1 dose, On Fri07/31/22 at 1515, Routine
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 Restricted medication : LAWRENCE MALIK [facility] Saline Bubble Study 07-31 20:03: 03 Yes [id number] 6mL 6 mL, Injection, SEE-INSTRU CTIONS, Starting on Fri07/31/22 at 1503, Until Discontinu ed, Routine [facility] pantoprazol e (PROTONIX) EC tablet 40 mg 07-31 19:15: 00 Yes 40mg 40 mg, Oral, DAILY, First dose on Fri07/31/22 at 1415, Until Discontinu ed, Routine [facility] acetaminoph en (TYLENOL) tablet 650 mg 07-31 19:08: 01 Yes 650mg 650 mg, Oral, Q6HPRN, Starting on Fri07/31/22 at 1408, Until Discontinu ed, Routine, Pain (scale 1-3), Pain (scale 4-6), Temp > 38.5 C, Temp > 37.5 C [facility] NaCl 0.9% (NS) IV infusion 1,000 mL 07-31 17:15: 00 08-02 13:44 :59 No 1000mL at 100 mL/hr, Intravenou s, CONTINUOUS , Starting on Fri07/31/22 at 1215, Until Fri08/02/22 at 0844, JIM [facility] aspirin tablet 325 mg 07-31 16:30: 00 07-31 16:46 :00 No 325mg 325 mg, Oral, ONCE, 1 dose, On Fri07/31/22 at 1130, STAT [facility] ondansetron (ZOFRAN (PF)) injection 4 mg 07-31 16:15: 00 07-31 16:19 :00 No 4mg 4 mg, Slow IV Push, ONCE, 1 dose, On Fri07/31/22 at 1115, JIM [facility] morpHINE (4 mg/mL) injection 4 mg 07-31 16:15: 00 07-31 16:19 :00 No 4mg 4 mg, Slow IV Push, ONCE, 1 dose, On Fri07/31/22 at 1115, STAT [facility] iopamidol (ISOVUE 370-500 mL) injection 100 mL 07-31 14:04: 00 07-31 14:05 :00 No [id number] 100mL 100 mL, Intravenou s, ONCE, 1 dose, On Fri07/31/22 at 0930, Routine [facility] NaCl 0.9% (NS) injection 5 mL 07-31 13:45: 14 Yes 5mL 5 mL, Slow IV Push, PRN - SEE INSTRUCTIO NS, Starting on Fri07/31/22 at 0845, Until Discontinu ed, 10 mL [facility] ondansetron (ZOFRAN (PF)) injection 4 mg 04-09 15:45: 00 04-09 15:00 :00 No 4mg 4 mg, Slow IV Push, ONCE, 1 dose, On Fri04/09/22 at 1045, Routine [facility] iopamidol (ISOVUE 370-500 mL) injection 50 mL 04-09 14:50: 00 04-09 14:51 :00 No [id number] 50mL 50 mL, Intravenou s, ONCE, 1 dose, On Fri04/09/22 at 1000, Routine [facility] NaCl 0.9% (NS) bolus infusion 1,000 mL 04-09 14:45: 00 04-09 15:54 :00 No 1000mL at 999 mL/hr, 1,000 mL, IV Infusion, ONCE, 1 dose, On Fri04/09/22 at 0945, STAT [facility] morpHINE (4 mg/mL) injection 4 mg 04-09 14:35: 58 Yes 4mg 4 mg, Slow IV Push, Q4HPRN, Starting on Fri04/09/22 at 0935, Until Discontinu ed, Routine, Pain (scale 7-10) [facility] sodium chloride (NS) injection 5 mL 04-09 14:30: 37 Yes 5mL 5 mL, Intravenou s, PRN, Starting on Fri04/09/22 at 0930, Until Discontinu ed, Routine, IV line flushing [facility] traMADoL 100 mg 24 hr tablet 04-09 00:00: 00 04-17 04:59 :00 No [id number] 100mg Take 1 tablet by mouth daily for 7 days. Indication s: acute pain [facility] losartan 50 mg tablet 04-08 00:00: 00 Yes [id number] 50mg Take 1 tablet by mouth daily. [facility] losartan 50 mg tablet 04-08 00:00: 00 08-02 00:00 :00 No [id number] 50mg Take 1 tablet by mouth daily. [facility] Vital Signs Vital Name Observation Time Observation Value Comments S geronimo Systolic blood pressure 2022-08-02 15:39:00 182 mm[Hg] [facility] Diastolic blood pressure 2022-08-02 15:39:00 97 mm[Hg] [facility] Heart rate 2022-08-02 15:39:00 79 /min [facility] Body temperature 2022-08-02 15:39:00 36.56 Neema [facility] Respiratory rate 2022-08-02 15:39:00 18 /min [facility] Oxygen saturation in Arterial blood by Pulse oximetry 2022-08-02 15:39:00 99 /min [facility] Body weight 2022-08-02 01:42:00 79.47 kg [facility] BMI 2022-08-02 01:42:00 25.14 kg/m2 [facility] Systolic blood pressure 2022-04-09 14:34:00 132 mm[Hg] [facility] Diastolic blood pressure 2022-04-09 14:34:00 94 mm[Hg] [facility] Heart rate 2022-04-09 14:34:00 74 /min [facility] Body temperature 2022-04-09 14:34:00 36.22 Neema [facility] Respiratory rate 2022-04-09 14:34:00 18 /min [facility] Body weight 2022-04-09 14:34:00 82.555 kg [facility] BMI 2022-04-09 14:34:00 26.11 kg/m2 [facility] Oxygen saturation in Arterial blood by Pulse oximetry 2022-04-09 14:34:00 100 /min [facility] Procedures Procedure Date / Time Performed Performing Clinician Source BASIC METABOLIC PANEL (NA, K, CL, CO2, GLUCOSE, BUN, CREATININE, CA) 2022-08-02 10:34:00 Wendy Wagner [facility] CBC WITH DIFF 2022-08-02 10:34:00 Wendy Wagner [facility] MR BRAIN W WO CONTRAST 2022-08-01 22:03:06 Dilma Wagner alma delia [facility] URINE DRUG (IMMUNOASSAY) - COMPREHENSIVE DRUG SCREEN 2022-08-01 18:25:[address] [facility] BLOOD CULTURE SCREEN 2022-08-01 [facility] 2022-08-01 17:43:00 Pricilla Wagner i [facility] COMP. METABOLIC PANEL ([id number]) 2022-08-01 10:35:00 Wendy Wagner [facility] TRANSTHORACIC ECHO (TTE) COMPLETE W/ CONTRAST 2022-07-31 20:02:[address] [facility] URINALYSIS 2022-07-31 15:17:00 Mihir Sharma [facility] CT ANGIOGRAM CHEST 2022-07-31 14:17:00 Mihir Sharma [facility] CT ANGIOGRAM ABDOMEN/PELVIS 2022-07-31 14:17:00 Mihir Sharma [facility] CT STROKE ANGIOGRAM HEAD 2022-07-31 14:16:00 Rebel Sharma [facility] CT STROKE ANGIOGRAM NECK 2022-07-31 14:16:00 Rebel Sharma [facility] CT STROKE HEAD WO CONTRAST 2022-07-31 13:56:00 Mihir Sharma [facility] TROPONIN I 2022-07-31 13:46:00 Mihir Sharma [facility] THYROID STIMULATING HORMONE 2022-07-31 13:46:[address] [facility] BASIC METABOLIC PANEL (NA, K, CL, CO2, GLUCOSE, BUN, CREATININE, CA) 2022-07-31 13:46:00 Mihir Sharma [facility] LIPID PANEL ([id number])(TOTAL CHOLESTEROL, TRIGLYCERIDES, HDL) 2022-07-31 13:46:[address] [facility] ETHANOL 2022-07-31 13:46:00 Mihir Sharma [facility] CBC WITHOUT DIFF 2022-07-31 13:46[facility]00 [facility] GLYCOSYL[facility] HEMOGLOBIN (A1C) 2022-07-31 13:46:[address] [facility] PROTHROMBIN TIME / INR 2022-07-31 13:46:00 Efrain Sharma [facility] ACTIVATED PARTIAL THRMPLAS QUITA 2022-07-31 13:46:00 Mihir Sharma [facility] LOW-DENSITY LIPOPROTEIN, DIRECT 2022-07-31 13:46:[address] [facility] COVID-19 (ID NOW RAPID TESTING) 2022-07-31 13:46:00 Mihir Sharma [facility] LAB ONLY COVID INTERPRETATION 2022-07-31 13:46:00 Mihir Sharma [facility] HB ECG ROUTINE & RHYTHM STRIP 2022-07-31 13:44:36 Mihir Sharma [facility] CONSENT/REFUSAL FOR DIAGNOSIS AND TREATMENT 2022-07-31 13:28:04 Doctor Unassigned, [place] [facility] HOSPITAL ADMISSION 2022-07-31 05:01:00 Doctor Un assigned, [place] [facility] URINALYSIS 2022-04-09 15:11:00 Malka Mcgovern [facility] CT ABDOMEN PELVIS W CONTRAST 2022-04-09 14:56:45 Malka Mcgovern [facility] LIPASE 2022-04-09 14:36:00 Malka Mcgovern [facility] COMP. METABOLIC PANEL ([id number]) 2022-04-09 14:36:00 Malka Mcgovern [facility] CBC WITH DIFF 2022-04-09 14:36:00 Mcgovern, [facility] NOTICE OF PRIVACY PRACTICES 2022-04-09 14:30:05 Doctor Unassigned, [place] [facility] CONSENT/REFUSAL FOR DIAGNOSIS AND TREATMENT 2022-04-09 14:29:07 Doctor Unassigned, [place] [facility] Encounters Start Date/Time End Date/Time Encounter Type Admission Type Attending Clinicians Care Facility Care Department Encounter ID Source 2022-08-05 00:00:00 2022-08-05 00:00:00 Transition of Care Mihaela Mac [id number] [facility] 2022-07-31 08:34:00 2022-08-02 16:00:00 Inpatient U [facility] [id number] [facility] 2022-07-31 08:34:00 2022-08-02 16:00:00 [facility] [id number] [facility] 2022-04-09 09:31:00 2022-04-09 10:55:00 Emergency X MALKA MCGOVERN [facility] ERT [id number] [facility] 2022-04-09 09:31:00 2022-04-09 10:55:00 Emergency Malka Mcgovern [facility] [id number] [facility] Results Test Description Test Time Test Comments Results Result Co mments Source [facility] WITH [id number] 10:59:07* Test Item Value Reference Range Interpretation Comme nts WBC (test code = 6690-2) See_Comment [Automated messa ge] The system which generated this result transmitted reference range: 4.20 - 10.70 10*3/?L. The reference range was not used to interpret this result as normal/abnormal. RBC (test code = 789-8) See_Comment [Automated [employer] ge] The system which generated this result transmitted reference range: 4.26 - 5.52 10*6/?L. The reference range was not used to interpret this result as normal/abnormal. HGB (test code = 718-7) 13.9 g/dL 12.2-16.4 HCT (test code = 4544-3) 38.3 % 38.4-49.3 L MCV (test code = 787-2) 87.4 fL 81.7-95.6 MCH (test code = 785-6) 31.7 pg 26.1-32.7 MCHC (test code = 786-4) 36.3 g/dL 31.2-35 H RDW-SD (test code = 37285-9) 35.5 fL 38.5-51.6 L RDW-CV (test code = 788-0) 11.2 % 12.1-15.4 L PLT (test code = 777-3) See_Comment [Automated [employer]] The system which generated this result transmitted reference range: 150 - 328 10*3/?L. The reference range was not used to interpret this result as normal/abnormal. MPV (test code = 08707-9) 9.3 fL 9.8-13 L NRBC/100 WBC (test code = 7146247596) See_Comment [Automated Pix[employer] ssage] The system which generated this result transmitted reference range: 0.0 - 10.0 /100 WBCs. The reference range was not used to interpret this result as normal/abnormal. NRBC x10^3 (test code = 6225205136) See_Comment [Automated [employer]] The system which generated this result transmitted reference range: 10*3/?L. The reference range was not used to interpret this result as normal/abnormal. GRAN MAT (NEUT) % (test code = 770-8) 59.0 % IMM GRAN % (test code = 1115557188) 0.40 % LYMPH % (test code = 736-9) 29.4 % MONO % (test code = 5905-5) 6.7 % EOS % (test code = 713-8) 3.9 % BASO % (test code = 706-2) 0.6 % GRAN MAT x10^3(ANC) (test code = 8733208978) 3.18 10*3/uL 1.99-6.95 IMM GRAN x10^3 (test code = 6186078084) 0-0.06 LYMPH x10^3 (test code = 731-0) 1.58 10*3/uL 1.09-3.23 MONO x10^3 (test code = 742-7) 0.36 10*3/uL 0.36-1.02 EOS x10^3 (test code = 711-2) 0.21 10*3/uL 0.06-0.53 BASO x10^3 (test code = 704-7) 0.03 10*3/uL 0.01-0.09 Lab Interpretation (test code = 33210-2) [facility]normal [facility]56996[facility]2022-08-01 11:39:32* Test Item Value Reference Range Interpretation Comme nts NA (test code = 2263128024) 136 mmol/L 135-145 K (test code = 6138332605) 3.9 mmol/L 3.5-5 CL (test code = 9323073056) 105 mmol/L 98-108 CO2 TOTAL (test code = 5180487695) 27 mmol/L 23-31 AGAP (test code = 6759792373) 2-16 BUN (test code = 2785522405) 15 mg/dL 7-23 GLUCOSE (test code = 5171803567) 131 mg/dL 70-110 H CREATININE (test code = 3229743221) 0.89 mg/dL 0.6-1.25 TOTAL BILI (test code = 9431850705) 0.5 mg/dL 0.1-1.1 CALCIUM (test code = 2200914659) 7.9 mg/dL 8.6-10.6 L T PROTEIN (test code = 6626795961) 6.4 g/dL 6.3-8.2 ALBUMIN (test code = 2721882529) 3.5 g/dL 3.5-5 ALK PHOS (test code = 4754611703) 60 U/L 34-122 ALTv (test code = 1742-6) 16 U/L 5-50 AST(SGOT) (test code = 2865622995) 30 U/L 13-40 eGFR (test code = 3127129672) mL/min/1.73m2 JEY (test code = JEY) Association [...] imaging tests). Lab Interpretation (test code = 22615-6) Abnormal [facility], [id number] 05:25:31* Test Item Value Reference Range Interpretation Comme nts dLDL Chol (test code = 59428-4) 130 mg/dL See_Comment [Automated [employer]] The system which generated this result transmitted reference range: <=130. The reference range was not used to interpret this result as normal/abnormal. Lab Interpretation (test code = 32866-0) Abnormal [facility] (28201)(TOTAL CHOLESTEROL, TRIGLYCERIDES, HDL)2022-08-01 00:25:45* Test Item Value Reference Range Interpretation Comme nts CHOL (test code = 5511903803) 237 mg/dL 120-200 H HDL (test code = 1893789458) 43 mg/dL See_Comment [Automated [employer]] The system which generated this result transmitted reference range: >=40. The reference range was not used to interpret this result as normal/abnormal. HDLC RATIO (test code = 0361962930) See_Comment H [Automated [employer]] The system which generated this result transmitted reference range: <=5.0. The reference range was not used to interpret this result as normal/abnormal. TRIG (test code = 9304855013) 438 mg/dL 30-170 H LDL CHOL (test code = 10824-2) Unable to calcul ate LDL due to elevated triglyceride level greater than 400 mg/dL. VLDL (test code = 3317794398) 88 mg/dL 5-60 H Lab Interpretation (test code = 24466-6) [facility]C)2022-07-31 23:21:43* Test Item Value Reference Range Interpretation Comme nts HGB A1C (test code = 4548-4) 8.8 % 4-5.7 H JEY (test code = JEY) Reference RangesNormal: <5.7%Prediabetes: 5.7 - 6.4%Diabetes: > 6.5% Lab Interpretation (test code = 17539-3) [facility]normal [facility] - Transthoracic echo (TTE) 2022-07-31 21:10:12* Test Item Value Reference Range Interpretation Comme nts Height (test code = 8108955991) in Weight (test code = 7607282554) lbs Systolic BP (test code = 0827195035) mmHg Diastolic BP (test code = 2313162800) mmHg Heart Rate (test code = 3775052748) bpm LVOT stroke volume (test code = 8461483890) 57.20 cm3 EF(Teich) (test code = 9831172674) 51.60 % LVIDD (test code = 5444250934) 4.40 cm LVIDS (test code = 5597643061) 3.20 cm Left Ventricular End Systolic Volume by Teichholz Method (test code = 9516488) 42.5 mL Left Ventricular End Diastolic Volume by Teichholz Method (test code = 3999230) 87.7 mL IVS (test code = 5855020592) 0.95 cm LVPWD (test code = 0472711783) 0.99 cm LVOT diameter (test code = 1372548643) 2.01 cm LVOT area (test code = 3872603796) 3.20 cm2 FS (test code = 9054476806) 26 % MV Peak E Dave (test code = 7389699600) 76.7 cm/s MV Peak A Dave (test code = 1854993286) 108.4 cm/s E/A ratio (test code = 9179552176) ratio E wave decelartion time (test code = 9544726434) 0.26 s LA volume (BP) (test code = 5916069659) 40.2 mL LVOT peak dave (test code = 8727691809) 85.3 cm/s LVOT mn grad (test code = 6892867303) mmHg LA size (test code = 3820033732) 4.6 cm LAV(MOD-sp2) (test code = 2685688056) 41.90 mL LAV(MOD-sp4) (test code = 8344341659) 38.80 mL Tapse (test code = 5452040708) 1.53 cm Aortic valve mean velocity (test code = 9846616705) 75.4 cm/s Ao peak dave (test code = 4023175292) 127.0 cm/s Ao VTI (test code = 1118380951) 22.0 cm AV LVOT peak gradient (test code = 0243062263) mmHg LVOT peak VTI (test code = 9363391317) 18.1 cm AV area by cont VTI (test code = 4725558445) 2.6 cm2 AV area peak dave (test code = 1153585718) 2.1 cm2 LV V1 mean (test code = 1336442976) 52.30 cm/s Ao max PG (test code = 1163594445) 6.50 mm[Hg] MV Prop V (test code = 8188907795) 45.30 cm/s Ao root diam (test code = 2149930511) 3.20 cm AV peak gradient (test code = 6553637269) mmHg AV valve area (test code = 0355839106) 2.60 cm2 AV mean gradient (test code = 0744662180) mmHg Aortic root (test code = 6252773438) 3.2 cm Ao root annulus (test code = 8292944743) 3.2 cm PW (test code = 1224383781) 0.99 cm 0.6-1.1 EF - 2D (test code = 70055576) 51.60 % Interventricular Septum Diastolic Thickness by 2D (test code = 3834873) 0.95 cm LA Volume Index (BP) (test code = 6384841331) 20.0 mL/m2 BSA (test code = 3634071432) 2.01 m2 A4C EF (test code = 4382960797) 63.50 % EF(sp4-el) (test code = 6743546755) 63.20 % SV(MOD-sp4) (test code = 9305810696) 56.60 mL SV(sp4-el) (test code = 0403367785) 56.40 mL LV Diastolic Volume (BP) (test code = 9550715124) 85.8 mL A2C EF (test code = 6461807686) 79.90 % EF(MOD-bp) (test code = 7419662109) 73.80 % EF(sp2-el) (test code = 5384692701) 80.70 % LV Systolic Volume (BP) (test code = 5263586187) 22.5 mL SV(MOD-bp) (test code = 1750638813) 63.30 mL SV(MOD-sp2) (test code = 9848809170) 63.70 mL EF (test code = 1490134013) Left Ventricular Stroke Volume by 2-D Biplane-MOD (test code = 0118911) 63.3 mL LV Diastolic Volume Index (BP) (test code = 9186118664) 42.7 mL/m2 LV Systolic Volume Index (BP) (test code = 0235394257) 11.2 mL/m2 Radiology Study observation (narrative) (test code = 00204-8) JEY (test code = JEY) ?Left?Ventricle: Left [...] normal. Mild mitral annular calcification. Trace transvalvular regurgitation.Tricuspi d ValveTricuspid valve structure is normal. Insufficient tricuspid regurgitation jet to estimate RVSP.Trace transvalvular regurgitation. Right ventricular systolic pressure is normal. RA pressure is 0-5 mmHg.Aortic ValveNot well visualized. Trace transvalvular regurgitation. No hemodynamically significant .Pulmonic ValveNot well visualized. Trace transvalvular regurgitation.Ascendin g AortaNormal sized annulus and sinus of Valsalva.PericardiumTh e pericardium is normal. No pericardial effusion.Study DetailsStudy quality experienced technical difficulty. A complete echocardiogram was performed using 2D, color flow Doppler and spectral Doppler. The apical, parasternal and subcostal views were obtained. Lumason ultrasound enhancing agent used and saline contrast was performed. Patient exhibited sinus rhythm. [facility] [id number] 21:01:36 * Test Item Value Reference Range Interpretation Comme nts TSH (test code = 4097195862) See_Comment Biotin has been reported to cause a negative bias, interpret results relative to patient's use of biotin. [Automated message] The system which generated this result transmitted reference range: 0.45 - 4.70 mIU/L. The reference range was not used to interpret this result as normal/abnormal. Lab Interpretation (test code = 01882-8) Normal [facility]wallETHANOL2022-09-28 14:53:34 ALCOHOL<10mg/dL07/31/2022 9:[address] 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 The reference range was not used to interpret this result as normal/abnormal. JEY (test code = JEY) Reference (Normal) Range (defined by the 99th percentile reference [...] to patient's use of biotin. Lab Interpretation (test code = 74263-4) Normal [facility]wall[facility] Metabolic [facility] (NA, K, CL, CO2, Glucose, BUN, Creatinine, CA) - Code Gpervl7318-07-52 14:04:01* Test Item Value Reference Range Interpretation Comme nts NA (test code = 2207556527) 133 mmol/L 135-145 L K (test code = 8355770592) 4.7 mmol/L 3.5-5 CL (test code = 0969864817) 95 mmol/L 98-108 L CO2 TOTAL (test code = 6219411729) 27 mmol/L 23-31 AGAP (test code = 1723976645) 2-16 BUN (test code = 4351103650) 18 mg/dL 7-23 GLUCOSE (test code = 7673275094) 170 mg/dL 70-110 H CREATININE (test code = 8619853125) 1.06 mg/dL 0.6-1.25 CALCIUM (test code = 9964088334) 10.1 mg/dL 8.6-10.6 eGFR (test code = 9375568978) mL/min/1.73m2 JEY (test code = JEY) Association [...] imaging tests). Lab Interpretation (test code = 81237-2) Abnormal [facility]wallaPTT - Code Bnvztd4505-16-08 14:02:15* Test Item Value Reference Range Interpretation Comme nts APTT Patient (test code = 3173-2) See_Comment [Automated message] The system which generated this result transmitted reference range: 23 - 38 Seconds. The reference range was not used to interpret this result as normal/abnormal. JEY (test code = JEY) The [facility] patient population mean normal value for aPTT is 30 seconds. Lab Interpretation (test code = 98960-1) Normal [facility]wallProthrombin Time / INR - Code Mjpbms3150-35-94 13:59:58* Test Item Value Reference Range Interpretation Comme nts PROTIME PATIENT (test code = 5964-2) See_Comment [Automated messa ge] The system which generated this result transmitted reference range: 12.0 - 14.7 Seconds. The reference range was not used to interpret this result as normal/abnormal. INR (test code = 6301-6) Normal INR <1.1; Warfarin Therapeutic range 2.0 to 3.0 or 2.5 to 3.5, depending upon the indications. Lab Interpretation (test code = 88585-3) Normal [facility] without Diff - Code Xaosyw7920-89-51 13:53:59* Test Item Value Reference Range Interpretation Comme nts WBC (test code = 6690-2) See_Comment [Automated message] The system which generated this result transmitted reference range: 4.20 - 10.70 10*3/?L. The reference range was not used to interpret this result as normal/abnormal. RBC (test code = 789-8) See_Comment [Automated message] The system which generated this result transmitted reference range: 4.26 - 5.52 10*6/?L. The reference range was not used to interpret this result as normal/abnormal. HGB (test code = 718-7) 15.3 g/dL 12.2-16.4 HCT (test code = 4544-3) 42.3 % 38.4-49.3 MCH (test code = 785-6) 31.8 pg 26.1-32.7 MCV (test code = 787-2) 87.9 fL 81.7-95.6 MCHC (test code = 786-4) 36.2 g/dL 31.2-35 H PLT (test code = 777-3) See_Comment [Automated message] The system which generated this result transmitted reference range: 150 - 328 10*3/?L. The reference range was not used to interpret this result as normal/abnormal. MPV (test code = 18360-7) 9.0 fL 9.8-13 L RDW-CV (test code = 788-0) 11.1 % 12.1-15.4 L RDW-SD (test code = 39720-2) 35.9 fL 38.5-51.6 L NRBC x10^3 (test code = 9521257090) See_Comment [Automated [employer]] The system which generated this result transmitted reference range: 10*3/?L. The reference range was not used to interpret this result as normal/abnormal. NRBC/100 WBC (test code = 7997591380) See_Comment [Automated [employer]] The system which generated this result transmitted reference range: 0.0 - 10.0 /100 WBCs. The reference range was not used to interpret this result as normal/abnormal. IPF % (test code = 3545193509) Lab Interpretation (test code = 60050-9) Abnormal [facility]wallComplete Metabolic Tbwym5070-56-66 15:39:24* Test Item Value Reference Range Interpretation Comme nts NA (test code = 4629576921) 132 mmol/L 135-145 L K (test code = 7473898496) 4.9 mmol/L 3.5-5.0 CL (test code = 1131297518) 94 mmol/L 98-108 L CO2 TOTAL (test code = 2172237932) 26 mmol/L 23-31 AGAP (test code = 7480988964) 2-16 BUN (test code = 9237104233) 20 mg/dL 7-23 GLUCOSE (test code = 2841659360) 207 mg/dL 70-110 H CREATININE (test code = 6386032519) 1.17 mg/dL 0.60-1.25 TOTAL BILI (test code = 6812496168) 0.9 mg/dL 0.1-1.1 CALCIUM (test code = 3802623466) 9.2 mg/dL 8.6-10.6 T PROTEIN (test code = 5337701482) 7.3 g/dL 6.3-8.2 ALBUMIN (test code = 2522270453) 4.4 g/dL 3.5-5.0 ALK PHOS (test code = 4578058064) 75 U/L 34-122 ALTv (test code = 1742-6) 60 U/L 5-50 H AST(SGOT) (test code = 0813298989) 74 U/L 13-40 H eGFR (test code = 0358070509) mL/min/1.73m2 JEY (test code = EJY) Association of Glomerular Filtration Rate (GFR) and [...] imaging tests). Lab Interpretation (test code = 24356-2) Abnormal [facility] RockwallLipase, Okdoy7624-93-34 15:39:03* Test Item Value Reference Range Interpretation Comme nts LIPASE (test code = 3994689618) 105 U/L 0-220 Lab Interpretation (test cod e = 98295-6) Normal [facility] RockwallCBC with Igahdyflnavh7289-67-03 15:06:58* Test Item Value Reference Range Interpretation Comme nts WBC (test code = 6690-2) See_Comment [Automated [employer]] The system which generated this result transmitted reference range: 4.20 - 10.70 10*3/?L. The reference range was not used to interpret this result as normal/abnormal. RBC (test code = 789-8) See_Comment [Automated [employer]] The system which generated this result transmitted reference range: 4.26 - 5.52 10*6/?L. The reference range was not used to interpret this result as normal/abnormal. HGB (test code = 718-7) 16.7 g/dL 12.2-16.4 H HCT (test code = 4544-3) 46.7 % 38.4-49.3 MCV (test code = 787-2) 87.9 fL 81.7-95.6 MCH (test code = 785-6) 31.5 pg 26.1-32.7 MCHC (test code = 786-4) 35.8 g/dL 31.2-35.0 H RDW-SD (test code = 30730-7) 36.6 fL 38.5-51.6 L RDW-CV (test code = 788-0) 11.4 % 12.1-15.4 L PLT (test code = 777-3) See_Comment [Automated messa ge] The system which generated this result transmitted reference range: 150 - 328 10*3/?L. The reference range was not used to interpret this result as normal/abnormal. MPV (test code = 68926-7) 9.0 fL 9.8-13.0 L NRBC/100 WBC (test code = 4623471859) See_Comment [Automated [employer]] The system which generated this result transmitted reference range: 0.0 - 10.0 /100 WBCs. The reference range was not used to interpret this result as normal/abnormal. NRBC x10^3 (test code = 2069541588) <0.01 See_Comment [Automated [employer]] The system which generated this result transmitted reference range: 10*3/?L. The reference range was not used to interpret this result as normal/abnormal. GRAN MAT (NEUT) % (test code = 770-8) 65.3 % IMM GRAN % (test code = 2037113011) 0.60 % LYMPH % (test code = 736-9) 23.3 % MONO % (test code = 5905-5) 5.9 % EOS % (test code = 713-8) 3.9 % BASO % (test code = 706-2) 1.0 % GRAN MAT x10^3(ANC) (test code = 0086595476) 4.40 10*3/uL 1.99-6.95 IMM GRAN x10^3 (test code = 4560224198) 0.04 10*3/uL 0.00-0.06 LYMPH x10^3 (test code = 731-0) 1.57 10*3/uL 1.09-3.23 MONO x10^3 (test code = 742-7) 0.40 10*3/uL 0.36-1.02 EOS x10^3 (test code = 711-2) 0.26 10*3/uL 0.06-0.53 BASO x10^3 (test code = 704-7) 0.07 10*3/uL 0.01-0.09 Lab Interpretation (test code = 42448-4) Abnormal [facility]"
[2023-12-04 07:09] LABS: Absolute Lymphocytes (CBC) 1.1 K/uL (0.7-4.9); Hematocrit 41.8 % (39.6-49.0); Lymphocytes % 21.6 % (15.3-44.8); MCV 89.9 fL (80-100); MPV 6.9 fL (7.6-11.3); Platelets 226 thou/uL (152-406); RBC Red Blood Cell Count 4.65 M/uL (4.33-5.43)
--- NOTE | 2023-12-04 07:14 | RAD REPORT ---
EXAM DESCRIPTION: CT - Ct Stroke Brain Wo Cont - 12/04/2023 7:08 am CLINICAL HISTORY: STROKE ALERT COMPARISON: Head Brain Wo Cont dated 05/12/2023; Head angio dated 05/12/2023 TECHNIQUE: All CT scans are performed using dose optimization technique as appropriate and may inclu de automated exposure control or mA/KV adjustment according to patient size. FINDINGS: No intracranial hemorrhage, hydrocephalus or extra-axial fluid collection.No areas of brai n edema or evidence of midline shift. Mild chronic small vessel ischemic changes. The paranasal sinuses and mastoids are clear. The calvarium is intact. IMPRESSION: No acute intracranial abnormality. Discussed with Dr. Villatoro by Dr. Truong at 0709 on 12/04/23
[2023-12-04 07:16] LABS: Protime INR 0.98
--- NOTE | 2023-12-04 07:18 | RAD REPORT ---
EXAM DESCRIPTION: CT - Neck Angio - 12/04/2023 7:08 am CLINICAL HISTORY: left weakness COMPARISON: Neck Angio dated 05/12/2023 TECHNIQUE: CT angiography of the neck vessels was performed with maximum intensity reformatted image s. CAROTID STENOSIS REFERENCE USING NASCET CRITERIA: Mild - <50% stenosis. Moderate - 50-69% stenosis. Severe - 70-94% stenosis. Near occlusion - 95-99% stenosis. Occluded - 100% stenosis. All CT scans are performed using dose optimization technique as appropriate and may include automated exposure control or mA/KV adjustment according to patient size. FINDINGS: A left aortic arch is identified with normal three vessel configuration of the great vesse ls. No significant flow abnormality is seen of the common carotid bilaterally. Calcified noncalcified plaque present just beyond the right carotid bulb with a mild (less than 50%) stenosis of the right ICA. The left ICA is patent. Both external carotid arteries are widely patent Severe stenosis at the origin of the left vertebral artery. Right dominant vertebral artery. Multilevel degenerative changes are present in the spine. IMPRESSION: No flow limiting stenosis involving either carotid system. 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
--- NOTE | 2023-12-04 07:24 | RAD REPORT ---
EXAM DESCRIPTION: CT - Head angio - 12/04/2023 7:08 am CLINICAL HISTORY: STROKE ALERT COMPARISON: Ct Stroke Brain Wo Cont dated 12/04/2023; Head Brain Wo Cont dated 05/12/2023; Head angio d ated 05/12/2023; Neck Angio dated 12/04/2023 TECHNIQUE: CT angiography of the head was performed with maximum intensity reformatted images. 3D maximum intensity pixel (MIP) reconstructions were created All CT scans are performed using dose optimization technique as appropriate and may include automated exposure control or mA/KV adjustment according to patient size. FINDINGS: Anterior circulation: No aneurysm or large vessel occlusion. No hemodynamically significant stenosis. No arteriovenous malf ormation identified. Moderate calcified and noncalcified plaque involving the bilateral cavernous car otids with less than 50% stenoses . . Posterior circulation: Similar multifocal stenoses involving the V4 segment of the left vertebral artery which may be develo pmental rather secondary to atherosclerotic changes. Is probably of little acute clinical significanc e and is unchanged. Mild narrowing of the left P2 segment of the posterior cerebral artery is similar . No large vessel occlusion or aneurysm identified. No arteriovenous malformation identified. Circumferential thickening within the lower maxillary sinuses. IMPRESSION: No acute large vessel occlusion. No aneurysm. Similar multifocal stenoses involving the nondominant left vertebral artery which may be congenital/d evelopmental and of doubtful acute clinical significance.
--- NOTE | 2023-12-04 07:31 | EDPHYS ---
Physician Documentation [facility] Name: Oh Roberts Age: 63 yrs Sex: Male : 1960 Arrival Date: 12/04/2023 Time: 06:29 Bed 20 Private MD: ED Physician Damir Villatoro HPI: 12/04 06:50 This 63 yrs old Male presents to ER via Unassigned with complaints of LEFT sp4 SIDE NUMBNESS/TINGLING. 07:33 3-year-old male with history of aortic aneurysm with repair, hypertension, peripheral sp4 vascular disease, 2 prior CVAs, presents with acute onset of left-sided numbness and weakness, inability to ambulate, patient states symptoms developed at 5:30 in the morning while driving to work. . Patient was assessed on arrival at 6:37 in the morning . Historical: - Allergies: 07:21 No Known Allergies; km8 - Home Meds: 07:21 Plavix 75 mg Oral tablet daily [Active]; lisinopril Oral [Active]; aspirin 81 mg Oral km8 cap [Active]; omeprazole 20 mg Oral tablet daily [Active]; - PMHx: 07:21 aortic aneurism \T\ repair; Hypertension; PVD; stroke 2003; TIA; km8 - PSHx: 07:21 aoritic aneurism \T\ repair; Left ankle; right leg stent; km8 - Immunization history:: Client reports receiving the 2nd dose of the Covid vaccine, Flu vaccine is not up to date. - Social history:: Smoking status: Patient reports use of chewing tobacco. Patient uses alcohol, occasionally. Patient/guardian denies using street drugs. - Family history:: not pertinent. ROS: 07:33 Constitutional: Negative for fever, chills, and weight loss, positive left facial sp4 numbness and positive left arm and leg weakness 07:33 All other systems are negative, Exam: 07:33 Constitutional: This is a well developed, well nourished patient who is awake, alert, sp4 and in no acute distress. Head/Face: Normocephalic, atraumatic. Eyes: Pupils equal round and reactive to light, extra-ocular motions intact. Lids and lashes normal. Conjunctiva and sclera are not injected. Cornea within normal limits. Periorbital areas with no swelling, redness, or edema. ENT: Nares patent. No nasal discharge, no septal abnormalities noted. Tympanic membranes are normal and external auditory canals are clear. Oropharynx with no redness, swelling, or masses, exudates, or evidence of obstruction, uvula midline. Mucous membranes moist. Neck: Trachea midline, no thyromegaly or masses palpated, and no cervical lymphadenopathy. Supple, full range of motion without nuchal rigidity, or vertebral point tenderness. Chest/axilla: Normal chest wall appearance and motion. Nontender with no deformity. No lesions are appreciated. Cardiovascular: Regular rate and rhythm with a normal S1 and S2. No gallops, murmurs, or rubs. Normal PMI, no JVD. No pulse deficits. Respiratory: Lungs have equal breath sounds bilaterally, clear to auscultation and percussion. No rales, rhonchi or wheezes noted. No increased work of breathing, no retractions or nasal flaring. Abdomen/GI: Soft, non-tender, with normal bowel sounds. No distension or tympany. No guarding or rebound. No evidence of tenderness throughout. Back: No spinal tenderness. No costovertebral tenderness. Skin: Warm, dry with normal turgor. Normal color with no rashes, multiple areas of psoriasis/plaque psoriasis MS/ Extremity: Pulses equal, no cyanosis. Neurovascular intact. Full, normal range of motion. Neuro: Awake and alert, GCS 15, oriented to person, place, time, and situation. Cranial nerves II-XII grossly intact. Motor strength 5/5 in right arm and the right leg, 4 out of 5 weakness left arm and left lower extremity, mild dullness to sensation testing left face. Psych: Awake, alert, with orientation to person, place and time. Behavior, mood, and affect are within normal limits 07:33 ECG was reviewed by the Attending Physician. 6:39 AM EKG reveals normal sinus rhythm at a rate of 79 with third-degree AV block. Vital Signs: 06:31 BP 175 / 92; Pulse 78; Resp 16; Temp 98(TE); Pulse Ox 100% on R/A; Weight 83.1 kg; km8 Height 5 ft. 11 in. (R); Pain 0/10; 07:05 BP 205 / 100; Pulse 80; Resp 17; Pulse Ox 99% on R/A; rs5 07:10 Weight 83 kg (M); rs5 07:15 BP 208 / 96; Pulse 82; Resp 17; Pulse Ox 99% on R/A; rs5 07:25 BP 184 / 83; Pulse 77; Resp 18; Pulse Ox 99% on R/A; rs5 07:50 BP 171 / 84; Pulse 86; Resp 18; Pulse Ox 99% on R/A; rs5 08:07 BP 161 / 76; Pulse 87; Resp 18; Pulse Ox 99% on R/A; rs5 08:22 BP 176 / 87; Pulse 82; Resp 19; Pulse Ox 99% on R/A; rs5 08:40 BP 175 / 88; Pulse 83; Resp 18; Pulse Ox 99% on R/A; rs5 08:55 BP 170 / 81; Pulse 75; Resp 18; Pulse Ox 99% on R/A; rs5 06:31 Body Mass Index 25.55 (83.00 kg, 180.34 cm) km8 06:31 Pain Scale: Adult km8 NIH Stroke Scale Scores: 06:31 NIHSS Score: 3 km8 06:52 NIHSS Score: 3 sp4 [place] Coma Score: 06:31 Eye Response: spontaneous(4). Motor Response: obeys commands(6). Verbal Response: km8 oriented(5). Total: 15. 06:52 Eye Response: spontaneous(4). Motor Response: obeys commands(6). Verbal Response: sp4 oriented(5). Total: 15. MDM: 07:16 ED course: TNK given 07:17 AM . sp4 07:30 Patient medically screened. gaviota 07:37 Differential Diagnosis altered mental status, sepsis, flu, CVA, TIA. Data reviewed: sp4 vital signs, nurses notes, lab test result(s), EKG, radiologic studies, CT scan. ED course: [place] [id number] RADIOLOGYSERVICES REPORT Name: OH ROBERTS Acct Number: [id number] :1960 Age:63 Sex:M Ord Phys: Damir Villatoro MD Unit Number: [id number] [facility]: Farhad Allan MD Status: REG ER ER Exam Date: 12/04/23 EXAM DESCRIPTION: CT - Ct Stroke Brain Wo Cont - 12/04/2023 7:08 am CLINICAL HISTORY: STROKE ALERT COMPARISON: Head Brain Wo Cont dated 05/12/2023; Head angio dated 05/12/2023 TECHNIQUE: All CT scans are performed using dose optimization technique as appropriate and may include automated exposure control or mA/KV adjustment according to patient size. FINDINGS: No intracranial hemorrhage, hydrocephalus or extra-axial fluid collection.No areas of brain edema or evidence of midline shift. Mild chronic small vessel ischemic changes. The paranasal sinuses and mastoids are clear. The calvarium is intact. IMPRESSION: No acute intracranial abnormality. Discussed with Dr. Villatoro by Dr. Truong at 0709 on 12/04/23. ED course: . 07:39 Transition of care: After a detail discussion of the patient's case, care is sp4 transferred to Sg Palm MD. 07:39 ED course: Patient arrived at 6:37 AM, CT prove negative for hemorrhage. Patient was sp4 given TNK with completion at 7:19 AM. Patient is awaiting CT angio head and neck. Hemodynamically stable care transferred to Dr. Palm . . 12/04 06:49 Order name: Basic Metabolic Panel sp4 12/04 06:49 Order name: CBC with Diff sp4 12/04 06:49 Order name: Hepatic Function 4 12/04 06:49 Order name: High Sensitivity Troponin 4 12/04 06:49 Order name: Magnesium sp4 12/04 06:49 Order name: Protime (+inr) sp4 12/04 06:49 Order name: Ptt, Activated sp4 12/04 06:49 Order name: UDS sp4 12/04 07:25 Order name: CREATININE WHOLE BLOOD EDMA 12/04 06:49 Order name: CT Head Angio sp4 12/04 06:49 Order name: CT Neck Angio sp4 12/04 06:49 Order name: CT Stroke Brain w/o Contrast sp4 12/04 06:49 Order name: Stroke CXR 1 View sp4 12/04 06:49 Order name: EKG; Complete Time: 06:49 sp4 12/04 06:49 Order name: Accucheck; Complete Time: 09:13 sp4 12/04 06:49 Order name: Cardiac monitoring; Complete Time: 07:25 sp4 12/04 06:49 Order name: EKG - Nurse/Tech; Complete Time: 07:25 sp4 12/04 06:49 Order name: IV Saline Lock; Complete Time: 07:16 sp4 12/04 06:49 Order name: Labs collected and sent; Complete Time: 07:16 sp4 12/04 06:49 Order name: NPO; Complete Time: 07:16 sp4 12/04 06:49 Order name: O2 Per Protocol; Complete Time: 07:16 sp4 12/04 06:49 Order name: O2 Sat Monitoring; Complete Time: 07:16 sp4 12/04 06:49 Order name: Stroke Swallow Screen; Complete Time: 07:25 sp4 EC:33 Rate is 79 beats/min. Rhythm is regular, Normal Sinus Rhythm. QRS [place] is Normal. [place] sp4 interval is prolonged. QRS interval is normal. QT interval is normal. No Q waves. T waves are Normal. No ST changes noted. Clinical impression: No evidence of ischemia. Interpreted by me. Reviewed by me. Administered Medications: 07:08 Drug: hydrALAZINE IVP 20 mg IVP once Route: IVP; Site: left antecubital; rs5 07:21 Follow up: Response: No adverse reaction; Blood pressure is lowered rs5 07:15 Drug: TNK FOR STROKE - Tenecteplase IV 0.25 mg/kg IV at per protocol once; MAX rs5 DOSE 25 mg, IVP over 5 seconds {Co-Signature: km8 (Mary Rueda RN).} Route: IV; Rate: per protocol; Site: left antecubital; 07:22 Follow up: Response: No adverse reaction rs5 07:16 Drug: NS 0.9% IV 1000 ml IV at 125 ml/hr continuous Route: IV; Rate: 125 ml/hr; Site: rs5 left antecubital; 07:30 Follow up: Response: No adverse reaction rs5 07:46 Drug: foLIC Acid IVPB 1 mg IVPB once Route: IVPB; Site: left antecubital; rs5 08:00 Follow up: Response: No adverse reaction rs5 Disposition Summary: 12/04/23 07:30 Transfer Ordered Notes: Transfer Location: [facility] [place] Reason: Higher level of care g[place] Condition: Stable g[place]iota Problem: new gaviota Symptoms: have improved gaviota Accepting Physician: to stroke team(12/04/23 09:18) rs5 Diagnosis - Cerebral infarction, unspecified - acute, left sided weakness g[place] - Left acute hemiparesis, acute ischemic CVA sp4 Forms: - Medication Reconciliation Form gaviota - SBAR form g[facility]iota Critical care time excluding procedures: 07:40 Critical care time: Bedside Care: 36 minutes, Consultation: 12 minutes, Family sp4 Intervention: 12 minutes. Total time: 60 minutes NIH Stroke Scale - NIH Stroke Score Date: 12/04/2023 Time: 06:31 Total Score = 3 10. Dysarthria (speech clarity - read or repeat words) - 0(Normal) 11. Extinction and Inattention (visual/tactile/auditory/spatial/personal) - 0(No abnormality) 1a. Level of Consciousness (LOC) - 0(Alert) 1b. Level of Consciousness (LOC) (Month \T\ Age) - 0(Both) 1c. LOC Commands (Open \T\ Closes Eyes/Housecalls Nurse) - 0(Both) 2. Best Gaze (Lateral Gaze Paresis) - 0(Normal) 3. Visual Field Loss - 0(No visual loss) 4. Facial Palsy - 0(Normal) 5a. Left Arm: Motor (10-second hold) - 1(Drift) 5b. Right Arm: Motor (10-second hold) - 0(No drift) 6a. Left Leg: Motor (5-second hold - always test supine) - 1(Drift) 6b. Right Leg: Motor (5-second hold - always test supine) - 0(No drift) 7. Limb Ataxia (finger/nose \T\ heel/ortiz - test with eyes open) - 0(Absent) 8. Sensory Loss (pinprick arms/legs/face) - 1(Mild to moderate loss) 9. Best Language: Aphasia (description/naming/reading) - 0(No aphasia) Initials: km8 NIH Stroke Scale - NIH Stroke Score Date: 12/04/2023 Time: 06:52 Total Score = 3 10. Dysarthria (speech clarity - read or repeat words) - 0(Normal) 11. Extinction and Inattention (visual/tactile/auditory/spatial/personal) - 0(No abnormality) 1a. Level of Consciousness (LOC) - 0(Alert) 1b. Level of Consciousness (LOC) (Month \T\ Age) - 0(Both) 1c. LOC Commands (Open \T\ Closes Eyes/Housecalls Nurse) - 0(Both) 2. Best Gaze (Lateral Gaze Paresis) - 0(Normal) 3. Visual Field Loss - 0(No visual loss) 4. Facial Palsy - 0(Normal) 5a. Left Arm: Motor (10-second hold) - 1(Drift) 5b. Right Arm: Motor (10-second hold) - 0(No drift) 6a. Left Leg: Motor (5-second hold - always test supine) - 1(Drift) 6b. Right Leg: Motor (5-second hold - always test supine) - 0(No drift) 7. Limb Ataxia (finger/nose \T\ heel/ortiz - test with eyes open) - 0(Absent) 8. Sensory Loss (pinprick arms/legs/face) - 1(Mild to moderate loss) 9. Best Language: Aphasia (description/naming/reading) - 0(No aphasia) Initials: sp4 Signatures: Dispatcher [employer] EDSg Evans MD MD cha Sotelo, Ricky, RN RN rs5 Damir Villatoro MD MD sp4 Marx, Katie, RN RN km8 Mary Rueda RN km8 Corrections: (The following items were deleted from the chart) 07:39 07:30 to stroke team [place] 09:18 07:39 to stroke team [facility]
--- NOTE | 2023-12-04 07:31 | ER ---
Nurse's Notes [facility] Name: Oh Roberts Age: 63 yrs Sex: Male : 1960 Arrival Date: 12/04/2023 Time: 06:29 Bed 20 Private MD: Diagnosis: Cerebral infarction, unspecified-acute, left sided weakness;Left acute hemiparesis, acute ischemic CVA Presentation: 12/04 06:31 Chief complaint: Patient states: left sided tingling and weakness starting at 0530 this km8 morning; hx of TIA's. Coronavirus screen: Client denies travel out of the [place] in the last 14 days. Ebola Screen: No symptoms or risks identified at this time. Initial Sepsis Screen: Does the patient meet any 2 criteria? No. Patient's initial sepsis screen is negative. Does the patient have a suspected source of infection? No. Patient's initial sepsis screen is negative. Risk Assessment: Do you want to hurt yourself or someone else? Patient reports no desire to harm self or others. Onset of symptoms was December 04, 2023 at 05:30. 06:31 Method Of Arrival: Ambulatory km8 06:31 Acuity: LUIS M 2 km8 Triage Assessment: 06:31 General: Appears in no apparent distress. comfortable, Behavior is calm, cooperative, km8 appropriate for age. Pain: Denies pain. EENT: No signs and/or symptoms were reported regarding the EENT system. Neuro: Level of Consciousness is awake, alert, obeys commands, Oriented to person, place, time, situation, Reports numbness in left side of face, left arm and left leg weakness in left arm and left leg. Cardiovascular: Denies chest pain, shortness of breath, Capillary refill < 3 seconds Patient's skin is warm and dry. Respiratory: Airway is patent Respiratory effort is even, unlabored, Respiratory pattern is regular, symmetrical. GI: No signs and/or symptoms were reported involving the gastrointestinal system. : No signs and/or symptoms were reported regarding the genitourinary system. Derm: No signs and/or symptoms reported regarding the dermatologic system. Skin is intact, is healthy with good turgor, Skin is dry, Skin is pink, warm \T\ dry. normal, Skin temperature is warm. Musculoskeletal: Range of motion: intact in all extremities, Reports weakness in left arm and left leg. Historical: - Allergies: 07:21 No Known Allergies; km8 - Home Meds: 07:21 Plavix 75 mg Oral tablet daily [Active]; lisinopril Oral [Active]; aspirin 81 mg Oral km8 cap [Active]; omeprazole 20 mg Oral tablet daily [Active]; - PMHx: 07:21 aortic aneurism \T\ repair; Hypertension; PVD; stroke 2004; TIA; km8 - PSHx: 07:21 aoritic aneurism \T\ repair; Left ankle; right leg stent; km8 - Immunization history:: Client reports receiving the 2nd dose of the Covid vaccine, Flu vaccine is not up to date. - Social history:: Smoking status: Patient reports use of chewing tobacco. Patient uses alcohol, occasionally. Patient/guardian denies using street drugs. - Family history:: not pertinent. Screenin:31 [facility] ED Fall Risk Assessment (Adult) History of falling in the last 3 months, 8 including since admission No falls in past 3 months (0 pts) Confusion or Disorientation No (0 pts) Intoxicated or Sedated No (0 pts) Impaired Gait Yes (1 pt) Mobility Assist Device Used No (0 pt) Altered Elimination No (0 pt) Score/Fall Risk Level 0 - 2 = Low Risk Oriented to surroundings, Maintained a safe environment, Educated pt \T\ family on fall prevention, incl call for assistance when getting out of bed, Assessed \T\ reinforced patient's understanding of fall precautions, Used ambulatory aids as needed (educated on \T\ assisted with). Abuse screen: Denies threats or abuse. Denies injuries from another. Nutritional screening: No deficits noted. Tuberculosis screening: No symptoms or risk factors identified. Assessment: 06:31 General: see triage assessment/notes. 8 06:56 Reassessment: Pt returned from CT scan. rs5 07:00 General: Appears in no apparent distress. uncomfortable, Behavior is calm, cooperative. rs5 Pain: Denies pain. 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 Cardiovascular: Heart tones S1 S2 present Rhythm is regular. Respiratory: Airway is patent Respiratory effort is even, unlabored, Respiratory pattern is regular, symmetrical, Breath sounds are clear bilaterally. GI: Abdomen is round non-distended, Bowel sounds present X 4 quads. Abd is soft and non tender X 4 quads. : No signs and/or symptoms were reported regarding the genitourinary system. EENT: No signs and/or symptoms were reported regarding the EENT system. Derm: Skin is intact, Skin is pink, warm \T\ dry. Musculoskeletal: Range of motion: limited in left leg and left arm. 07:15 Reassessment: MD at bedside. Instructed to adm TNK per MD orders. TNK adm at 0715. rs5 07:30 Reassessment: No changes from previously documented assessment. rs5 07:45 Reassessment: Patient and/or family updated on plan of care and expected duration. Pain rs5 level reassessed. Patient is alert, oriented x 3, equal unlabored respirations, skin warm/dry/pink. General: Behavior is calm, cooperative. 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 Cardiovascular: Rhythm is regular. Respiratory: Respiratory effort is even, unlabored, Respiratory pattern is regular, symmetrical. 08:10 Reassessment: No changes from previously documented assessment. rs5 08:25 Reassessment: To bedside, pt passed bedside swallow screen . rs5 08:45 Reassessment: Patient and/or family updated on plan of care and expected duration. Pain rs5 level reassessed. Patient is alert, oriented x 3, equal unlabored respirations, skin warm/dry/pink. 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 Cardiovascular: Rhythm is regular. Respiratory: Respiratory effort is even, unlabored, Respiratory pattern is regular, symmetrical. 08:55 Reassessment: No changes from previously documented assessment. rs5 08:59 Reassessment: Report given to EMS at bedside for transfer. rs5 Vital Signs: 06:31 BP 175 / 92; Pulse 78; Resp 16; Temp 98(TE); Pulse Ox 100% on R/A; Weight 83.1 kg; km8 Height 5 ft. 11 in. (R); Pain 0/10; 07:05 BP 205 / 100; Pulse 80; Resp 17; Pulse Ox 99% on R/A; rs5 07:10 Weight 83 kg (M); rs5 07:15 BP 208 / 96; Pulse 82; Resp 17; Pulse Ox 99% on R/A; rs5 07:25 BP 184 / 83; Pulse 77; Resp 18; Pulse Ox 99% on R/A; rs5 07:50 BP 171 / 84; Pulse 86; Resp 18; Pulse Ox 99% on R/A; rs5 08:07 BP 161 / 76; Pulse 87; Resp 18; Pulse Ox 99% on R/A; rs5 08:22 BP 176 / 87; Pulse 82; Resp 19; Pulse Ox 99% on R/A; rs5 08:40 BP 175 / 88; Pulse 83; Resp 18; Pulse Ox 99% on R/A; rs5 08:55 BP 170 / 81; Pulse 75; Resp 18; Pulse Ox 99% on R/A; rs5 06:31 Body Mass Index 25.55 (83.00 kg, 180.34 cm) km8 06:31 Pain Scale: Adult km8 [place] Coma Score: 06:31 Eye Response: spontaneous(4). Motor Response: obeys commands(6). Verbal Response: km8 oriented(5). Total: 15. 06:52 Eye Response: spontaneous(4). Motor Response: obeys commands(6). Verbal Response: sp4 oriented(5). Total: 15. NIH Stroke Scale Scores: 06:31 NIHSS Score: 3 km8 06:52 NIHSS Score: 3 sp4 ED Course: 06:31 Patient arrived in ED. [email or web address] 06:31 Arm band placed on right wrist. km8 06:31 Patient has correct armband on for positive identification. Placed in gown. Bed in low km8 position. Call light in reach. Side rails up X 1. Client placed on continuous cardiac and pulse oximetry monitoring. NIBP monitoring applied. 06:31 No provider procedures requiring assistance completed. Patient maintains SpO2 km8 saturation greater than 95% on room air. 06:45 Inserted saline lock: 20 gauge in left antecubital area, using aseptic technique. Blood km8 collected. 06:48 Damir Villatoro MD is Attending Physician. sp4 07:07 CT Head Angio In Process Unspecified. EDMS 07:10 CT Neck Angio In Process Unspecified. EDMS 07:10 CT Stroke Brain w/o Contrast In Process Unspecified. EDMS 07:18 Jose Lauren, RN is Primary Nurse. rs5 07:20 Triage completed. km8 07:37 Notified ED physician of a critical lab result(s). troponin 124.7. ll1 07:41 UDS Sent. ds4 07:58 Stroke CXR 1 View In Process Unspecified. EDMS 08:34 spoke with [facility] sarathflorentin an ETA of 35 minutes. bc6 09:01 Patient transferred, IV remains in place. rs5 Administered Medications: 07:08 Drug: hydrALAZINE IVP 20 mg IVP once Route: IVP; Site: left antecubital; rs5 07:21 Follow up: Response: No adverse reaction; Blood pressure is lowered rs5 07:15 Drug: TNK FOR STROKE - Tenecteplase IV 0.25 mg/kg IV at per protocol once; MAX rs5 DOSE 25 mg, IVP over 5 seconds {Co-Signature: km8 (Mary Rueda RN).} Route: IV; Rate: per protocol; Site: left antecubital; 07:22 Follow up: Response: No adverse reaction rs5 07:16 Drug: NS 0.9% IV 1000 ml IV at 125 ml/hr continuous Route: IV; Rate: 125 ml/hr; Site: rs5 left antecubital; 07:30 Follow up: Response: No adverse reaction rs5 07:46 Drug: foLIC Acid IVPB 1 mg IVPB once Route: IVPB; Site: left antecubital; rs5 08:00 Follow up: Response: No adverse reaction rs5 Medication: 06:31 VIS not applicable for this client. km8 Outcome: 07:30 ER care complete, transfer ordered by . gaviota 09:01 Transferred by ground EMS to [facility], Transfer form completed. rs5 09:01 Condition: stable 09:01 Instructed on the need for transfer, Demonstrated understanding of instructions, 09:18 Patient left the ED. rs5 NIH Stroke Scale - NIH Stroke Score Date: 12/04/2023 Time: 06:31 Total Score = 3 10. Dysarthria (speech clarity - read or repeat words) - 0(Normal) 11. Extinction and Inattention (visual/tactile/auditory/spatial/personal) - 0(No abnormality) 1a. Level of Consciousness (LOC) - 0(Alert) 1b. Level of Consciousness (LOC) (Month \T\ Age) - 0(Both) 1c. LOC Commands (Open \T\ Closes Eyes/Button Riveter) - 0(Both) 2. Best Gaze (Lateral Gaze Paresis) - 0(Normal) 3. Visual Field Loss - 0(No visual loss) 4. Facial Palsy - 0(Normal) 5a. Left Arm: Motor (10-second hold) - 1(Drift) 5b. Right Arm: Motor (10-second hold) - 0(No drift) 6a. Left Leg: Motor (5-second hold - always test supine) - 1(Drift) 6b. Right Leg: Motor (5-second hold - always test supine) - 0(No drift) 7. Limb Ataxia (finger/nose \T\ heel/ortiz - test with eyes open) - 0(Absent) 8. Sensory Loss (pinprick arms/legs/face) - 1(Mild to moderate loss) 9. Best Language: Aphasia (description/naming/reading) - 0(No aphasia) Initials: km8 NIH Stroke Scale - NIH Stroke Score Date: 12/04/2023 Time: 06:52 Total Score = 3 10. Dysarthria (speech clarity - read or repeat words) - 0(Normal) 11. Extinction and Inattention (visual/tactile/auditory/spatial/personal) - 0(No abnormality) 1a. Level of Consciousness (LOC) - 0(Alert) 1b. Level of Consciousness (LOC) (Month \T\ Age) - 0(Both) 1c. LOC Commands (Open \T\ Closes Eyes/Button Riveter) - 0(Both) 2. Best Gaze (Lateral Gaze Paresis) - 0(Normal) 3. Visual Field Loss - 0(No visual loss) 4. Facial Palsy - 0(Normal) 5a. Left Arm: Motor (10-second hold) - 1(Drift) 5b. Right Arm: Motor (10-second hold) - 0(No drift) 6a. Left Leg: Motor (5-second hold - always test supine) - 1(Drift) 6b. Right Leg: Motor (5-second hold - always test supine) - 0(No drift) 7. Limb Ataxia (finger/nose \T\ heel/ortiz - test with eyes open) - 0(Absent) 8. Sensory Loss (pinprick arms/legs/face) - 1(Mild to moderate loss) 9. Best Language: Aphasia (description/naming/reading) - 0(No aphasia) Initials: sp4 Signatures: Dispatcher [employer] EDSg Evans MD MD cha Swanson, Donovan ds4 Keith Goldman, RN RN ll1 Inga Su jj6 Jose Lauren RN RN rs5 Cherelle Crenshaw6 Damir Villatoro MD MD sp4 Mary Rueda RN RN km8 Mary Rueda RN km8
[2023-12-04 07:35] LABS: ALT/SGPT 26 U/L (16-61); AST/SGOT 22 U/L (15-37); Albumin 3.9 g/dL (3.4-5.0); Alkaline Phosphatase 86 U/L (45-117); BUN Blood Urea Nitrogen 15 mg/dL (7-18); Bicarbonate 27 mEq/L (21-32); Bilirubin Direct < 0.1 mg/dL (0-0.2); Bilirubin Indirect, Calculated ND mg/dL (0.2-0.8); Bilirubin Total 0.3 mg/dL (0.2-1.0); Glomerular Filtration Rate 50 ml/min (=/>90); Glucose Level 212 mg/dL (74-106); Potassium 4.6 mEq/L (3.5-5.1); Protein, Total 8.2 g/dL (6.4-8.2); Sodium Level 130 mEq/L (136-145)
[2023-12-04 07:36] LABS: Magnesium 2.2 mg/dL (1.6-2.4)
[2023-12-04 07:37] LABS: Troponin High Sensitivity 79.7 pg/mL (<58.9)
--- NOTE | 2023-12-04 08:02 | RAD REPORT ---
EXAM DESCRIPTION: RAD - Chest Single View - 12/04/2023 7:57 am CLINICAL HISTORY: stroke COMPARISON: Chest Single View dated 05/12/2023; Chest Single View dated 07/17/2022; Chest Pa And Lat ( 2 Views) dated 10/07/2019; Chest Single View dated 10/06/2019 FINDINGS: Lines: None. Lungs: No evidence of edema or pneumonia. Pleural: No significant pleural effusions or pneumothorax. Cardiac: The heart size is within normal limits. Mediastinum: Within normal limits. Bones: No acute fractures. Sternotomy. Other: None IMPRESSION: No acute cardiopulmonary disease.
[2023-12-04 08:08] LABS: Barbiturates NEGATIVE (NEGATIVE); Benzodiazepines NEGATIVE (NEGATIVE); Cocaine NEGATIVE (NEGATIVE); METHAMPHETAM NEGATIVE (NEGATIVE); Methadone NEGATIVE (NEGATIVE); Opiates NEGATIVE (NEGATIVE); Phencyclidine NEGATIVE (NEGATIVE); THC Cannibis NEGATIVE (NEGATIVE)
[2023-12-04 09:42] VITALS: TEMP 98; O2SAT 99
[2023-12-04 09:59] VITALS: BP 170/81
--- NOTE | 2023-12-04 13:21 | EKG ---
Test Date: 2023-12-04 Test Time: 06:39:27 Substance Abuse Rn: JJ MEASUREMENT RESULTS: Intervals: Rate: 79 ID: [id number] QRSD: 96 QT: 382 QTc: 438 [place]: P: 23 ID: [id number] QRS: -20 T: 56 INTERPRETIVE STATEMENTS: Sinus rhythm with 1st degree AV block Otherwise normal ECG Compared to ECG 05/12/2023 05:58:27 No significant changes Electronically Signed On 12-04-23 13:20:49 [employer] by Teofilo Cabrales
== END ==
LOC: ER 06:29
DX: I63.9 Cerebral infarction, unspecified (principal); R29.703 NIHSS score 3; I10 Essential (primary) hypertension; F17.220 Nicotine dependence, chewing tobacco, uncomplicated; Z79.01 Long term (current) use of anticoagulants; Z79.82 Long term (current) use of aspirin
CPT/HCPCS: 93005; 85025; 80048; 36415; 83735; 85610; 82565; 80076; 85730; 84484; 80307; 70496; 70498; 70450; 71045; 96375; Q9967; J3101; J0360; J7030